=== PATIENT | female | born 1960 | race Caucasian/White ===

== ENCOUNTER 2024-02-22 18:56 | Inpatient (IN) | payer OTHER, SELFPAY ==
[2024-02-22] VITALS (7 sets, daily range): BP systolic 92–140; BP diastolic 55–78; BMI 29.4; BMI 28.6
--- NOTE | 2024-02-22 13:58 | ED.GENMED ---
History of Present Illness
General
Chief Complaint: Change in Mental Status
Source: patient
Exam Limitations: none
Time Seen by Provider: 02/22/24 13:57
Nursing documentation reviewed up to this point in time: agreed with
History of Present Illness
History of Present Illness:
63-year-old female with past medical history of stroke with residual left-sided paralysis, CHF, hypertension, distant history of alcohol abuse presenting emergency department today with concerns of generalized weakness and fatigue for the past few
days that got a lot worse last night. Staff from her senior living reports that she appeared a lot more lethargic starting last night and would often be seen sleeping and not herself. Patient herself also reports that she has had some tremors on
her right side. She does have it apparently tremors at baseline however they seem to be more localized to the right. She is not currently have them at this time. Nursing staff did report some tremors this morning. She also complains of upper
abdominal pain, patient does she states she has a history of chronic pancreatitis however feels as though the pain is of it worse as of recent. She has no chest pain no shortness of breath today. Denies any headache, denies any neck pain. Patient
is wheelchair-bound at baseline.
Past History
Past History
ED Past Medical History: CAD, Cancer (Breast with lumpectomy), GERD, HTN, Hypercholesterolemia, Psychiatric (Depression, panic disorder, alcohol abuse) and Other (ETOH pancreatitis w/ cyst at tail, headache, dizziness, chronic abdominal
pain/narcotic dependent, Colitis, Ulcers)
ED Past Surgical History: Cholecystectomy, (X 2), Gynecological (Hysterectomy) and Other ( left breast lumpectomy, pancreatic duct stents that have been removed)
Social History
Tobacco: Smoker
Alcohol: Chronic alcoholic (Stopped 1 week ago)
Drug: Marijuana (by [facility] on previous visits)
Personal:
Living: with family (with her mother)
Employment: Not employed
Family History
Family History: Other (reviewed and non-contributory)
Review of Systems
Review of Systems
All Other Systems: ROS reviewed and negative except as documented in HPI and ROS
Phy Exam
Physical Exam
Physical Exam:
General: Patient appears lethargic but is generally well-appearing and in no acute distress, nontoxic
Skin: Warm and dry, no rashes or lesions
Head: Normocephalic, atraumatic
Eyes: Sclera non-icteric. EOMs intact. PERRLA.
Cardiac: Regular rate and rhythm, no murmur
Peripheral Vascular: No lower extremity swelling or
Pulm: Normal respiratory effort, no wheezes, rales, rhonchi
Abdomen: Mild epigastric abdominal tenderness palpation
Neuro: CN II-XII intact, left sided paralysis noted from prior stroke, no tremor on the right noted
Psychiatric: Appropriate mood and affect.
Course
Orders/Labs/Results
Orders:
Orders
02/22/24 14:00
Electrocardiogram (*1) Urgent
Reason for Study: Chest Pain
Cardiac Monitoring- Treatment ONCE
IV Insert/Care/Rem.- Treatment PRN
Comprehensive Metabolic Panel Urgent
Lipase Urgent
Phosphorus Urgent
Comment: ADD ON
TSH Reflex To Free T4 Urgent
Comment: ADD ON
02/22/24 14:01
EKG- Treatment ONCE
02/22/24 14:33
CT Head W/o Iv Contrast Urgent
Comment:
Reason For Exam: alterned mental status, right sided tremor
02/22/24 Dinner
NPO
Reason for opting out of Aircraft Instrument Engineer order writing: Provider Decision
Allow oral meds: No
Allow clear liquids: No
NPO with Ice Chips: No
Comment: has dyspghagia at baseline
02/22/24 15:11
Complete Blood Count/With Diff Urgent
02/22/24 15:36
0.9% Sodium Chloride 500 ml [Nss] 500 ml IV BOLUS
02/22/24 17:00
Speech Screening from [facility] Routine
02/22/24 17:56
COVID-19 Antigen Urgent
Source: Nasal Swab
02/22/24 18:05
UA Reflex to Culture [Urinalysis Reflex To Culture] Routine
Urine Creatinine Routine
Urine Sodium Routine
02/22/24 18:15
CR Chest - 2 Views Urgent
Comment:
Reason For Exam: lethargy
02/22/24 18:20
Admit/Transfer Patient As Directed
Co-Sign Provider:
Level of Care: Inpatient admission
Assign to:: Telemetry
Physician / Group: Ladonna Mendieta
Diagnosis: acute kidney injury, altered mental status
Reason for Telemetry: Chest Pain syndromes
Date to Stop Telemetry: 02/24/24
Time to Stop Telemetry: 11:00
Reason for Hospitalization: acute kidney injury, altered mental status
Expected length of stay greater than two midnights?: Yes
ELOS- Estimated Length of Stay in days: 3
I certify the patient meets the requirements for IP care: Yes
PRN Pain Medication Management As Directed
May give lesser potent ordered pain med per pt: Yes
preference::
Protocol:: Medication orders for pain may be administered in a
manner that supports deferring to patient preference
when the pt is:
- Requesting an ordered lesser potent pain medication.
Least to most potent pain medications are defined
as: acetaminophen < NSAID < tramadol < opioids
(morphine, oxycodone, hydromorphone).
- Requesting a lesser dose of the same medication IF
ORDERED.
- Requesting a less intrusive route of administration
if both routes are prescribed by the provider (PO <
IV).
02/22/24 18:25
Code Status As Directed
Resuscitation Status: Full Code
02/22/24 18:26
Add On- LAB Urgent
Tests Added?: TSH with reflex to T4, phosphorous
02/22/24 18:29
OT Consult [Ot Eval And Treat] Routine
Physical Therapy Consult [Pt Eval And Treat] Routine
Activity Level: As Tolerated
Speech Therapy Eval & Treat Routine
02/22/24 18:41
Urine Drug Abuse Screen Routine
02/22/24 18:59
Lactate Level [Lactic Acid] Urgent
Venous Blood Gas Urgent
%Oxygen/Room Air: 95
02/24/24 11:00
DC Protocol for Telemetry ONCE
Abnormal Lab Results
02/22/24 02/22/24
14:00 15:11
RBC 4.05 L 10^6/uL
(4.20-5.40)
MCH 31.6 H pg
(27.0-31.0)
RDW 14.6 H %
(11.5-14.5)
MPV 11.6 H fL
(7.4-10.4)
Absolute Monos (auto) 0.8 H 10^3/uL
(0.1-0.6)
Monocytes % 11.9 H %
(1.7-9.3)
Chloride 110 H mmol/L
(98-107)
Carbon Dioxide 17 L mmol/L
(22-30)
BUN 38 H mg/dl
(7-17)
Creatinine 1.3 H mg/dL
(0.6-1.0)
Glucose 112 H mg/dl
(70-99)
Lipase 18 L U/L
(23-300)
02/22/24 15:11
02/22/24 14:00
Vital Signs
Initial and Last Documented VS:
Initial Vital Signs
Temp Pulse Resp BP Pulse Ox
98.4 F 73 16 104/62 93
02/22/24 14:06 02/22/24 14:06 02/22/24 14:06 02/22/24 14:06 02/22/24 14:06
Last Documented Vital Signs
Temp Pulse Resp BP Pulse Ox
98.4 F 64 22 119/78 98
02/22/24 14:06 02/22/24 18:15 02/22/24 18:15 02/22/24 18:00 02/22/24 18:15
MDM/Problems Addressed
Differential Diagnosis Includes:
Differentials include hyponatremia, COVID-19, dehydration, electrolyte derangement, CVA, chronic pancreatitis flare
MDM/Problems Addressed:
63-year-old female with past medical history of stroke with residual left-sided paralysis, CHF, hypertension, distant history of alcohol abuse presenting emergency department today with concerns of generalized weakness and fatigue for the past few
days that got a lot worse last night. Family and nursing staff concerned about her increasing lethargy as well as worsening of her right sided tremor. Patient also notes vague abdominal pain with no tenderness on exam, does have history of chronic
pancreatitis. Patient is afebrile, her vitals are stable, she has no leukocytosis, CMP does demonstrate acute kidney injury. Family reports that she drinks nothing but coffee suspect dehydration. Will initiate IV fluids. Considering patient's
altered mental status , will admit for continued IV fluids and further workup.
Chronic conditions affecting care:
COPD, migraines, GERD, chronic pancreatitis,
Acute Exacerbation and/or Progression of Chronic Illness:
n/a
*Pulse Oximetry
Patient hypoxic: no
*Critical Care Note
Total Time (30-74mins, 75-104mins- exclusive of procedures): Not Applicable
Data Reviewed
Review of Other/Old Records Reveals: Records (Reviewed ER physician documentation from 05/26/2022 where she was evaluated emergency department for weakness and she was discharge)
Source: patient and records
Prescriptions/Medications Considered But Not Given:
n/a
ED Attending Note
-
Portions of this chart may have been created with voice recognition software.� Occasional wrong word or��sound alike� substitutions may have occurred due to the inherent limitations of voice recognition software.
Discharge Plan
Departure
Patient Disposition: Admit
Date of Disposition: 02/22/24
Time of Disposition: 17:38
Admit to: Med/Surg
Presentation/result/management discussed w/ accepting MD/DO: Hospitalist
Patient with high blood pressure during this ER visit?: No
Condition: Fair
Discharge Problem:
Acute kidney injury
Interventions
Interventions:
*Risk Screen - Suicide Last Done: 02/22/24 14:06
*General Assessment Last Done: 02/22/24 14:31
*Neglect/Abuse Screening Last Done: 02/22/24 14:06
ED- Fall Risk Assessment Last Done: 02/22/24 14:18
*ED COVID-19 Vaccine History Last Done: 02/22/24 14:18
ED- Pulmonary Assessment Last Done: 02/22/24 14:33
ED-Psychological Assessment Last Done: 02/22/24 17:01
ED- Neurological Assessment Last Done: 02/22/24 14:26
ED- Cardiac Assessment Last Done: 02/22/24 14:33
ED Swallowing Screen Last Done: 02/22/24 16:59
--- NOTE | 2024-02-22 14:26 | EDRN ---
IV VAT RN paged for IV access and bloods at this time. Unable to get access. Attempted once w/out success.
[2024-02-22 15:24] LABS: % Basophils 0.6 % (0-2); % Eosinophils 1.3 % (0-6); % Immature Granulocytes 0.4 % (0-0.5); % Lymphocytes 22.2 % (20.5-51.1); % Monocytes 11.9 % (1.7-9.3); % Neutrophils 63.6 % (42.2-75.2); Absolute Eosinophils 0.1 10^3/uL (0-0.7); Absolute Lymphocytes 1.5 10^3/uL (1.2-3.4); Absolute Monocytes 0.8 10^3/uL (0.1-0.6); Absolute Neutrophils 4.4 10^3/uL (1.4-6.5); Hematocrit 37.8 % (37.0-47.0); Hemoglobin 12.8 g/dL (12.0-16.0); Mean Corp Hgb Conc. 33.9 g/dL (33.0-37.0); Mean Corpuscular Hgb 31.6 pg (27.0-31.0); Mean Corpuscular Volume 93.3 fL (81.0-99.0); Mean Platelet Volume 11.6 fL (7.4-10.4); Nucleated Red Blood Cells % 0 %; Platelet Count 180 10^3/uL (130-400); Red Blood Cell Count 4.05 10^6/uL (4.20-5.40); Red Cell Dist. Width 14.6 % (11.5-14.5); White Blood Cell Count 6.9 10^3/uL (4.8-10.8)
[2024-02-22 15:31] LABS: ALT (SGPT) 17 U/L (0-35); AST (SGOT) 22 U/L (14-36); Albumin 4.3 g/dl (3.5-5.0); Alkaline Phosphatase 96 U/L (38-126); Blood Urea Nitrogen 38 mg/dl (7-17); Calcium 9.1 mg/dl (8.4-10.2); Carbon Dioxide 17 mmol/L (22-30); Chloride 110 mmol/L (98-107); Estimated Creatinine Clearance 42 ml/min; Glucose 112 mg/dl (70-99); Potassium 4.2 mmol/L (3.5-5.1); Sodium 141 mmol/L (135-145); Total Bilirubin 0.5 mg/dl (0.2-1.3); Total Protein 6.8 g/dl (6.3-8.2); eGFR 46.78
[2024-02-22] MEDS: NSS 500 IV (15:57)
--- NOTE | 2024-02-22 16:00 | EDRN ---
PCT attempted to take pt to CT during midline placement. At 16:00 news clerk informed pt can go when CT is ready for her now.
[2024-02-22 16:17] LABS: Lipase 18 U/L (23-300)
--- NOTE | 2024-02-22 17:58 | EDRN ---
COVID test performed and sent to lab at this time.
--- NOTE | 2024-02-22 18:00 | HPS.HSE ---
Addendum entered and electronically signed by Ladonna Mendieta MD 02/22/24 19:44:
CXR with pneumonia - will start Cef/Doxy
Addendum entered and electronically signed by Ladonna Mendieta MD 02/22/24 19:07:
HEAD CT
IMPRESSION:
1). 3 mm probably old lacunar infarct in the head of the caudate on the right
2). Old 7 cm right temporal parietal infarct
3). Moderate diffuse cortical atrophy
Original Note:
Family Physician
-
Family Physician: Rin Wen,
Chief Complaint
-
fatigue
History of Present Illness
Ms. Vanessa Borden is a 63 yo woman with hx CVA with residual left-sided paralysis, CHF, breast CA s/p lumpectomy, GERD, HTN, HlLD, alcohol abuse, alcoholic pancreatitis, chronic pain and opiate dependence, splenic vein thrombosis on Eliquis,
presents to the ER with increased lethargy and finding of tremors on right side.
Patient is awoken from sleep. She states she's been very lethargic over the past several days. She has also had uncontrollable arm shaking that comes and goes over past several months. She had this when I was int he room with her. No chest pain
or shortness of breath. No fevers/chills. No cough. She states she has been eating and drinking OK. Has chronic abdominal pain and states she needs her oxycodone.
She is wheelchair bound at baseline.
Spoke to mother who reports that she has never seen her this fatigued. Yesterday had significant tremors and shaking. She has had tremors in past but not like this.
Medical History
Past Medical History
Past Medical History: Reports Other
Additional Past Medical History:
Chronic pancreatitis
Left sided breast cancer -treated with lumpectomy, chemo and radiation
Severe alcohol use disorder
Essential hypertension
GERD
Peripheral neuropathy
Prolonged QTC
Chronic splenic vein thrombosis
Past Surgical History: Reports Other
Additional Past Surgical History:
Left breast lumpectomy
Social History
Tobacco: Smoker (1 pack/day)
Alcohol: Daily
Drug: None
Personal: Other (Lives with mother)
Family History
Family History: Not pertinent
Allergies / Home Medications
Allergies reflects when Allergies were last updated in [facility].
Home Medications with original date entered in [facility]
Allergy/Medication List:
Allergies
Allergy/AdvReac Type Severity Reaction Status Date / Time
adhesive Allergy Rash Verified 02/22/24 14:05
diflunisal Allergy Unknown Verified 02/22/24 14:05
silicone Allergy Unknown Verified 02/22/24 14:05
sumatriptan Allergy Unknown Verified 02/22/24 14:05
Home Medications
folic acid 1 mg tablet 1 mg PO DAILY Supplement 12/31/20
famotidine 40 mg tablet 40 mg PO HS Gastrointestinal issue 06/19/21
thiamine HCl (vitamin B1) 100 mg tablet 100 mg PO BID Supplement 06/19/21
dicyclomine 10 mg capsule 10 mg PO DAILYPRN PRN loose stools 08/19/21
primidone 250 mg tablet 250 mg PO HS tremors 11/23/21
cueeaj-prdjhfla-fohszmw 36,000-114,000-180,000 unit capsule,delay rel (Creon) 1 cap PO QPM 03/06/22
icmhic-nsigbmea-nohbrvq 36,000-114,000-180,000 unit capsule,delay rel (Creon) 2 cap PO MEALS Gastrointestinal issue 03/06/22
acetaminophen 325 mg tablet (Tylenol) 650 mg PO Q4HPRN PRN mild pain/temp>100 05/26/22
bisacodyl 10 mg rectal suppository (Dulcolax (bisacodyl)) 10 mg MS DAILYPRN PRN if no bm in 24hrs after MOM 05/26/22
magnesium hydroxide 400 mg/5 mL oral suspension (Milk of Magnesia) 2,400 mg PO DAILYPRN PRN if no bm after 3 days 05/26/22
sennosides 8.6 mg tablet (senna) 17.2 mg PO Q12H 05/26/22
sodium phosphates 19 gram-7 gram/118 mL enema (Fleet Enema) 118 ml MS DAILYPRN PRN if no bm in 24hrs after bisacodyl 05/26/22
albuterol sulfate 2.5 mg/3 mL (0.083 %) solution for nebulization 2.5 mg inhalation R Q8 02/22/24
albuterol sulfate 90 mcg/actuation aerosol inhaler 2 puff inhalation R Q4HPRN PRN sob/wheezing 02/22/24
alendronate 70 mg tablet 70 mg PO FR 02/22/24
amlodipine 10 mg tablet 10 mg PO DAILY 02/22/24
apixaban 5 mg tablet (Eliquis) 5 mg PO BID 02/22/24
atorvastatin 40 mg tablet 40 mg PO HS 02/22/24
baclofen 5 mg tablet 5 mg PO TID 02/22/24
buspirone 10 mg tablet 15 mg PO Q12H 02/22/24
ueidxwzwlh-jsshldexkgcyp-khxadaki 50 mg-300 mg-40 mg capsule (Fioricet) 2 cap PO Q8HPRN PRN headache 02/22/24
calcium carbonate 600 mg PO BID 02/22/24
citalopram 40 mg tablet 40 mg PO DAILY 02/22/24
diphenhydramine HCl 2 % topical gel (Benadryl) 1 applic topical Q6HPRN PRN itching/rash 02/22/24
docusate sodium 100 mg capsule 200 mg PO DAILY 02/22/24
ergocalciferol (vitamin D2) 1,250 mcg (50,000 unit) capsule 1,250 mcg PO MO 02/22/24
estradiol 10 mcg vaginal tablet (Vagifem) 10 mcg vaginal WESA@2200 02/22/24
ferrous sulfate 325 mg (65 mg iron) tablet 325 mg PO DAILY 02/22/24
fluticasone propionate 50 mcg/actuation nasal spray,suspension 2 spray intranasal BID 02/22/24
guaifenesin 100 mg/5 mL oral liquid 200 mg PO Q4HPRN PRN cough 02/22/24
guaifenesin 600 mg tablet, extended release 12 hr (Mucinex) 600 mg PO Q12H 02/22/24
hydrocortisone 1 % topical cream 1 applic topical Q6HPRN PRN itching 02/22/24
lidocaine 5 % topical ointment 1 applic topical TID left hip pain 02/22/24
loratadine 10 mg tablet 10 mg PO DAILY 02/22/24
losartan 50 mg tablet 50 mg PO DAILY 02/22/24
menthol 5 % topical patch (Icy Hot (menthol)) 1 patch topical DAILY left deltoid 02/22/24
menthol 5 % topical patch (Icy Hot (menthol)) 1 patch topical DAILY left knee 02/22/24
menthol 5 % topical patch (Icy Hot (menthol)) 1 patch topical DAILY left thigh 02/22/24
ondansetron HCl 4 mg tablet 4 mg PO Q8HPRN PRN nausea/vomiting 02/22/24
oxycodone 10 mg tablet 10 mg PO Q6H 02/22/24
pantoprazole 40 mg tablet,delayed release 40 mg PO DAILY 02/22/24
polyethylene glycol 3350 17 gram oral powder packet 17 g PO BID 02/22/24
pregabalin 150 mg capsule 150 mg PO Q8H 02/22/24
ropinirole 0.5 mg tablet 0.5 mg PO QID 02/22/24
sodium chloride 1,000 mg soluble tablet 1,000 mg PO DAILY 02/22/24
tamsulosin 0.4 mg capsule 0.4 mg PO DAILY 02/22/24
tiotropium bromide 2.5 mcg/actuation mist for inhalation 2 puff inhalation R DAILY 02/22/24
topiramate 25 mg tablet (Topamax) 25 mg PO DAILY 02/22/24
trazodone 50 mg tablet 75 mg PO HS 02/22/24
Review of Systems
-
History Source: Patient
A 12 point ROS was completed and negative except as noted: Yes
Physical Exam
Vital Signs
Vital Signs
Temp Pulse Resp BP Pulse Ox
98.4 F 62 14 102/70 97
02/22/24 14:06 02/22/24 17:30 02/22/24 17:30 02/22/24 17:00 02/22/24 17:30
Physical Exam
General: Other (patient arousable and answers questions but quickly drifts back to sleep )
HEENT: PERRLA
Respiratory: Clear; No Wheezes
Cardiac: S1/S2 and Regular Rhythm
GI: Soft and Non Tender
Musculoskeletal: No Edema
Skin: Warm and Dry; No Rash
Neuro: Awake, Alert and Other (chronic left sided paralysis )
Psych: Calm
Laboratory Results
-
02/22/24 15:11
02/22/24 14:00
Laboratory Results
Total Bilirubin 0.5 mg/dl (0.2-1.3) 02/22/24 14:00
AST 22 U/L (14-36) 02/22/24 14:00
ALT 17 U/L (0-35) 02/22/24 14:00
Alkaline Phosphatase 96 U/L (38-126) 02/22/24 14:00
Lipase 18 U/L (23-300) L 02/22/24 14:00
Data Reviewed
-
Diagnostic Radiology: Report Reviewed by me
Lab Data: Labs Reviewed by me
Impression/Plan
-
Ms. Vanessa Borden is a 63 yo woman with hx CVA with residual left-sided paralysis, CHF, breast CA s/p lumpectomy, GERD, HTN, HlLD, alcohol abuse, alcoholic pancreatitis, chronic pain and opiate dependence presents to the ER with increased lethargy
and finding of tremors on right side.
Triage VS: T 98.4, P 73, RR 16, BP 104/62, SpO2 93%
LABS: WBC 6.9, Hg 12.8, PLT 180, Na 141, K+ 4.2, Cl 110, CO2 17, BUN 38, Cr 1.3, Glucose 112, liver enzymes WNL
MAR: NS 500cc x 1
Acute Kidney Injury
Lethargy, Altered Mental Status
-will order more work up to rule out infectious causes of AMS, likely also from polypharmacy
-covid testing, UA, CXR
-VBG
-admit to telemetry
-IVF with sodium bicarb
-F/U urine studies
-urine drug screen
-cut down on medications and hold for sedation:
decrease oxy 10 q 6 hours to oxy 7.5 q 8 hours. Mother was surprised to learn that dosing was 10mg
decrease Baclofen from 5mg PO TID to 5mg PO BID
stop Trazodone
hold HE[employer] RAIL TRAIN OPERATOR Citalopram, Buspirone, Pregabalin
-PT/OT/ST
-given somnolence, NPO except medications
Hx CVA with residual left-sided paralysis
-wheelchair bound
Breast CA s/p Lumpectomy
GERD - HE[employer] RAIL TRAIN OPERATOR Protonix
Essential HTN - HE[employer] RAIL TRAIN OPERATOR Amlodipine
Hyperlipidemia - HE[employer]Y RAIL TRAIN OPERATOR Statin
Chronic pain with opiate dependence
Chronic Pancreatitis
-decrease oxycodone as above
-HEAVY RAIL TRAIN OPERATOR Creon
Anxiety
-hold HEAVY RAIL TRAIN OPERATOR medications as above
Hx Alcohol Abuse
Splenic Vein Thrombosis - continue HE[employer] RAIL TRAIN OPERATOR Eliquis
DVT PPx Eliquis
FULL CODE - discussed with patient and her mother
76 minutes spent on patient evaluation
[2024-02-22 18:34] LABS: COVID-19 Antigen Negative (Negative)
[2024-02-22 19:01] LABS: Phosphorus 4.5 mg/dl (2.5-4.5)
[2024-02-22 19:10] LABS: Venous Blood Gas B.E. -3.8 mmol/L (-4 to +4); Venous Blood Gas HCO3 22.2 mmol/L (22-27); Venous Blood Gas O2 Sat % 82.3 %; Venous Blood Gas pCO2 43 mmHg (35-48); Venous Blood Gas pH 7.32 (7.32-7.43); Venous Blood Gas pO2 48 mmHg (30-50)
[2024-02-22 19:21] LABS: Lactic Acid 0.6 mmol/L (0.7-2.0)
[2024-02-22 19:32] LABS: TSH Reflex To Free T4 0.83 uIU/ml (0.47-4.68)
[2024-02-22] MEDS: MIRALAX PO (20:53)
[2024-02-22] MEDS: STERILE WATER FOR INJECTION 10 ML IV (21:04)
[2024-02-22] MEDS: ROCEPHIN 1000 MG IV (21:04)
[2024-02-22] MEDS: VIBRAMYCIN 260 MG IV (21:04)
[2024-02-22] MEDS: LIORESAL 5 MG PO (21:04)
[2024-02-22] MEDS: ELIQUIS 5 MG PO (21:05)
[2024-02-22] MEDS: MYSOLINE 250 MG PO (21:05)
[2024-02-22] MEDS: MUCINEX 600 MG PO (21:05)
[2024-02-22] MEDS: SENOKOT PO (21:05)
[2024-02-22] MEDS: VITAMIN B1 100 MG PO (21:05)
[2024-02-22] MEDS: PEPCID 20 MG PO (21:07)
[2024-02-22] MEDS: LIPITOR 40 MG PO (21:07)
[2024-02-22] MEDS: REQUIP 0.5 MG PO (21:07)
[2024-02-22] MEDS: ROXICODONE 7.5 MG PO (21:39)
[2024-02-22] MEDS: SODIUM BICARBONATE 1150 MEQ IV (22:30)
--- NOTE | 2024-02-22 22:35 | PTCARENOTE ---
Pt admitted to [facility]. AAOx2 anxious, drowsy at times, forgetful and confused. Let side hemiplegia. NSR w/ prolong QT in the monitor. Lung sounds are diminished, shallow breathing, SaO2 93% RA. Abd round, obese and incontinence at times with bowel and
bladder. Call dooley within reach.
[2024-02-23] VITALS (8 sets, daily range): BP systolic 112–146; BP diastolic 78–97; PULSE 76; O2SAT 99; BMI 28.4
[2024-02-23] MEDS: VENTOLIN NEBULES INH (00:21)
[2024-02-23] MEDS: TYLENOL 650 MG PO (03:25)
[2024-02-23] MEDS: DUONEB 3 ML INH (04:07)
[2024-02-23] MEDS: ROXICODONE 7.5 MG PO (05:57)
[2024-02-23 06:54] LABS: % Basophils 0.7 % (0-2); % Eosinophils 1.3 % (0-6); % Immature Granulocytes 0.4 % (0-0.5); % Lymphocytes 27.9 % (20.5-51.1); % Monocytes 12.4 % (1.7-9.3); % Neutrophils 57.3 % (42.2-75.2); Absolute Eosinophils 0.1 10^3/uL (0-0.7); Absolute Lymphocytes 1.6 10^3/uL (1.2-3.4); Absolute Monocytes 0.7 10^3/uL (0.1-0.6); Absolute Neutrophils 3.2 10^3/uL (1.4-6.5); Blood Urea Nitrogen 29 mg/dl (7-17); Calcium 8.6 mg/dl (8.4-10.2); Carbon Dioxide 22 mmol/L (22-30); Chloride 109 mmol/L (98-107); Estimated Creatinine Clearance 60 ml/min; Glucose 82 mg/dl (70-99); Hematocrit 36.3 % (37.0-47.0); Hemoglobin 12.2 g/dL (12.0-16.0); Magnesium 2.2 mg/dl (1.6-2.3); Mean Corp Hgb Conc. 33.6 g/dL (33.0-37.0); Mean Corpuscular Hgb 30.5 pg (27.0-31.0); Mean Corpuscular Volume 90.8 fL (81.0-99.0); Mean Platelet Volume 11.8 fL (7.4-10.4); Nucleated Red Blood Cells % 0 %; Platelet Count 188 10^3/uL (130-400); Potassium 4.3 mmol/L (3.5-5.1); Red Cell Dist. Width 14.5 % (11.5-14.5); Sodium 142 mmol/L (135-145); White Blood Cell Count 5.6 10^3/uL (4.8-10.8); eGFR > 60.00
[2024-02-23] MEDS: VENTOLIN NEBULES 2.5 MG INH ×2 (07:29→16:05)
[2024-02-23] MEDS: SPIRIVA RESPIMAT 2.5 MCG 2 PUFF INH (07:29)
--- NOTE | 2024-02-23 08:30 | PTOTSP ---
Speech Language Pathology
Pt seen for clinical bedside swallow evaluation. 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 She reported she had a 'community acquired' PNA in the past year. P.O. trials of regular solids and thin liquids
provided. She refused puree. Adequate mastication, bolus formation, and A-P transit noted with no oral residue. No overt signs of aspiration. Unable to rule out silent aspiration bedside. Pt is at risk for aspiration given hx of CVA, current RLL
PNA, and reported second PNA within the last year.
Recommend:
(1) VSE
(2) NPO except meds pending VSE
(3) Oral care 4x/day with suctioning as needed
(4) Will decide on need for Aspiration Risk Hydration Protocol (ARHP) pending VSE
(5) COUNTY ASSESSOR to continue to follow
[2024-02-23] MEDS: SODIUM BICARBONATE 1150 MEQ IV (09:31)
[2024-02-23] MEDS: REQUIP 0.5 MG PO ×4 (09:32→21:25)
[2024-02-23] MEDS: CLARITIN 10 MG PO (09:32)
[2024-02-23] MEDS: ELIQUIS 5 MG PO ×2 (09:33→20:19)
[2024-02-23] MEDS: VITAMIN B1 100 MG PO ×2 (09:33→20:18)
[2024-02-23] MEDS: LIORESAL 5 MG PO ×2 (09:33→20:18)
[2024-02-23] MEDS: SENOKOT 17.2 MG PO ×2 (09:33→20:19)
[2024-02-23] MEDS: SODIUM CHLORIDE 1 GRAM PO (09:33)
[2024-02-23] MEDS: FLOMAX 0.4 MG PO (09:35)
[2024-02-23] MEDS: PROTONIX 40 MG PO (09:35)
[2024-02-23] MEDS: MUCINEX 600 MG PO ×2 (09:35→20:19)
[2024-02-23] MEDS: TOPAMAX 25 MG PO (09:36)
[2024-02-23] MEDS: FOLVITE 1 MG PO (09:36)
[2024-02-23] MEDS: NORVASC 10 MG PO (09:36)
[2024-02-23] MEDS: LIDOCAINE 4% PATCH 3 PATCH TOPICAL (09:37)
[2024-02-23] MEDS: VIBRAMYCIN 260 MG IV ×2 (09:38→21:00)
--- NOTE | 2024-02-23 10:25 | W.PN.HOSP.TC ---
Today's Communication/Plan
-
IV fluids
Adjusting analgesic and psychiatric regimen
VSE.
Antibiotics for pneumonia
Assessment / Plan
Assessment / Plan
Impression:
Toxic metabolic encephalopathy secondary to polypharmacy.
Right lower lobe pneumonia, with concern for aspiration.
Acute kidney injury.
Metabolic acidosis.
Other conditions:
History of CVA with residual left-sided paralysis.
Seizure disorder as per history
Chronic pain thought to be due to chronic pancreatitis.
Opiate dependency.
Chronic pancreatitis with history of pancreatic and common bile duct stenting/ERCP.
Chronic pancreatic insufficiency.
History of splenic vein thrombosis on anticoagulation with Eliquis.
Status postcholecystectomy.
History of breast carcinoma with lumpectomy
CAD.
Essential hypertension.
History of alcohol use disorder
History of tobacco use disorder.
Anxiety/depression.
Plan:
Presentation with lethargy and reported tremors on the right side.
History of CVA with residual left paresis left facial droop.
CT scan in the ED: 3 mm probable old lacunar infarct in the head of the caudate on the right, old 7 cm right temporal parietal infarct. Moderate diffuse cortical atrophy.
Suspect toxic metabolic encephalopathy in the settings of polypharmacy as well as decreasing renal clearance with NAVDEEP.
Mental status improved and back to baseline with IV hydration and adjusting analgesic/sedative regimen.
Monitor further adjusting analgesic regimen as follow:
� Oxycodone dose reduced to 5 mg every 8 hours standing dose (10 mg every 6 prior to admission)
� Stop trazodone
� Hold FINANCIAL HEALTH COUNSELOR citalopram, buspirone, pregabalin.
Acute kidney injury.
Metabolic acidosis.
Initiated on IV fluids with bicarbonate
Creatinine improving 1.3�0.9
Acidosis improved.
Transition to isotonic solution
Follow BMP
Monitor for retention
Check urinalysis and reflex to culture
Right lower lobe pneumonia
Stable respiratory status.
Afebrile.
Aspiration risk given prior CVA with significant neurologic sequela.
Speech and swallow evaluation
VSE.
Keep n.p.o. for now
Initiated on antibiotics: Ceftriaxone/doxycycline
Essential hypertension
Dyslipidemia
Continue amlodipine and statin.
Chronic pancreatitis with pancreatic insufficiency.
Analgesic regimen as above.
Continue pancreatic enzymes.
Splenic vein thrombosis on Eliquis.
Ambulatory dysfunction multifactorial. Send wheelchair-bound.
Nursing facility resident.
Anxiety/depression
Adjusting analgesic and psychiatric regimen with above-mentioned concern for polypharmacy.
Full code
DVT prophylaxis Eliquis.
Anticipated Discharge: 24 - 48 hours
Subjective/Interval History
-
Date of Service: February 23, 2024
Objective Data
-
Labs:
Laboratory Results
02/23/24
05:50
WBC 5.6
Hgb 12.2
Hct 36.3 L
Plt Count 188
Sodium 142
Potassium 4.3
Chloride 109 H
Carbon Dioxide 22
BUN 29 H
Creatinine 0.9
Glucose 82
Calcium 8.6
Vital Signs:
Vital Signs
Temp Pulse Resp BP Pulse Ox
97.4 F 73 18 125/78 99
02/23/24 07:35 02/23/24 07:35 02/23/24 07:35 02/23/24 07:35 02/23/24 07:35
I&O
02/22/24 02/23/24 02/24/24
06:59 06:59 06:59
Intake Total 990 / 990
Balance 990 / 990
Physical Exam
-
General: Well Developed and No Apparent Distress
HEENT: Normocephalic, Atraumatic and Moist Mucous Membranes
Respiratory: Clear to Auscultation
Cardiac: Regular Rhythm and S1/S2; Negative Murmur, Rub or Gallop
GI: Soft, Nontender, Nondistended and Normal Bowel Sounds; Negative Organomegaly
Rectal: Deferred by Provider
Musculoskeletal: No Clubbing, No Cyanosis and No Edema
Skin: Negative Rash
Neuro: Awake, Alert, Oriented and Other (Left hemiparesis)
[2024-02-23] MEDS: MIRALAX PO ×2 (11:03→20:19)
[2024-02-23 11:39] LABS: Urine Albumin Negative (Neg - Trace); Urine Bilirubin Negative (Negative); Urine Character Clear (Clear); Urine Color Yellow; Urine Glucose Negative (Negative); Urine Ketone Negative (Negative); Urine Leukocyte 2+ (Negative); Urine Nitrite Positive (Negative); Urine Occult Blood Negative (Negative); Urine Urobilinogen Negative (Neg - 1+)
[2024-02-23 12:05] LABS: Urine Sodium 101 mmol/L (30-90)
[2024-02-23 12:11] LABS: Urine Bacteria Few (Negative); Urine Red Blood Cell None Seen /HPF (0-2); Urine White Cell 16-20 /HPF (0-5)
[2024-02-23] MEDS: NSS 1000 IV (12:31)
--- NOTE | 2024-02-23 13:09 | PTOTSP ---
Video Swallow Study
Summary: Patient with WFL-mild oral stage differences but overall functional oral stage. Pharyngeal stage WFL. No aspiration occurred. Esophageal sweep with mild distal retention that reduced with a liquid wash.
Recommendations:
1. Regular, Thin Liquids
2. Medications as best tolerated
3. Strategies: upright to 90 degrees, pick soft/moist easy to chew foods, chew well, remain upright for 30 minutes after PO intake
4. Oral care 3x daily
No further dysphagia therapy warranted at this time.
[2024-02-23] MEDS: FIORICET 2 TAB PO ×2 (13:36→21:38)
[2024-02-23] MEDS: NICODERM TRANSDERMAL 14 MG TRANSDERM (13:37)
[2024-02-23] MEDS: ROXICODONE 5 MG PO ×2 (14:21→22:09)
[2024-02-23 14:56] LABS: Amphetamines Negative (Negative); Barbiturates Positive (Negative); Benzodiazepines Negative (Negative); Buprenorphine Negative (Negative); Cocaine Negative (Negative); Marijuana Negative (Negative); Methadone Negative (Negative); Methamphetamines Negative (Negative); Opiates Negative (Negative); Phencyclidine Negative (Negative); Tricyclic Antidepressants Negative (Negative)
[2024-02-23 15:12] LABS: Fentanyl, Urine Negative (Negative)
[2024-02-23] MEDS: ZOFRAN 4 MG IV (20:18)
[2024-02-23] MEDS: ROCEPHIN 1000 MG IV (20:19)
[2024-02-23] MEDS: STERILE WATER FOR INJECTION 10 ML IV (20:20)
[2024-02-23] MEDS: LIPITOR 40 MG PO (21:25)
[2024-02-23] MEDS: MYSOLINE 250 MG PO (21:25)
[2024-02-23] MEDS: PEPCID 20 MG PO (21:25)
[2024-02-23] MEDS: COMPAZINE 5 MG IV (22:35)
[2024-02-24] MEDS: NSS 1000 IV (00:03)
[2024-02-24] MEDS: VENTOLIN NEBULES 2.5 MG INH ×4 (00:13→15:35)
[2024-02-24] MEDS: TYLENOL 650 MG PO (03:01)
[2024-02-24 03:20] VITALS: BP 134/88
[2024-02-24 05:15] VITALS: BMI 28.6
[2024-02-24] MEDS: ROXICODONE 5 MG PO ×2 (05:59→13:35)
[2024-02-24] MEDS: FIORICET 2 TAB PO ×2 (05:59→14:33)
[2024-02-24 06:26] LABS: % Basophils 0.7 % (0-2); % Eosinophils 0.3 % (0-6); % Immature Granulocytes 1.7 % (0-0.5); % Lymphocytes 19.4 % (20.5-51.1); % Monocytes 8.8 % (1.7-9.3); % Neutrophils 69.1 % (42.2-75.2); Absolute Immature Granulocytes 0.1 10^3/uL (0-0.05); Absolute Lymphocytes 1.2 10^3/uL (1.2-3.4); Absolute Monocytes 0.5 10^3/uL (0.1-0.6); Absolute Neutrophils 4.2 10^3/uL (1.4-6.5); Hematocrit 34.5 % (37.0-47.0); Hemoglobin 11.8 g/dL (12.0-16.0); Mean Corp Hgb Conc. 34.2 g/dL (33.0-37.0); Mean Corpuscular Hgb 30.8 pg (27.0-31.0); Mean Corpuscular Volume 90.1 fL (81.0-99.0); Mean Platelet Volume 11.9 fL (7.4-10.4); Nucleated Red Blood Cells % 0 %; Platelet Count 177 10^3/uL (130-400); Red Blood Cell Count 3.83 10^6/uL (4.20-5.40); Red Cell Dist. Width 14.2 % (11.5-14.5)
--- NOTE | 2024-02-24 06:37 | VATNOTE ---
NOTED 4FR R MIDLINE DRSG SATURATED WITH BLOOD WHEN OBTAINING ORDERED LABS. SITE REDRESSED PER PROTOCOL WITH QUICK CLOT. NO OBVIOUS BLEEDING NOTED. SITE APPEARS WNL AND PT OFFERS N/C OF PAIN OR DISCOMFORT.PCN AWARE OF INTERVENTION AND OUTCOME.. VAT
TO FOLLOW.
[2024-02-24 06:47] LABS: Blood Urea Nitrogen 21 mg/dl (7-17); Calcium 8.4 mg/dl (8.4-10.2); Carbon Dioxide 15 mmol/L (22-30); Chloride 113 mmol/L (98-107); Estimated Creatinine Clearance 78 ml/min; Glucose 125 mg/dl (70-99); Potassium 3.9 mmol/L (3.5-5.1); Sodium 143 mmol/L (135-145); eGFR > 60.00
[2024-02-24 07:05] VITALS: BP 134/84
[2024-02-24] MEDS: SPIRIVA RESPIMAT 2.5 MCG 2 PUFF INH (07:23)
[2024-02-24] MEDS: NICODERM TRANSDERMAL 14 MG TRANSDERM (10:04)
[2024-02-24] MEDS: LIDOCAINE 4% PATCH 3 PATCH TOPICAL (10:04)
[2024-02-24] MEDS: PROTONIX 40 MG PO (10:05)
[2024-02-24] MEDS: CLARITIN 10 MG PO (10:05)
[2024-02-24] MEDS: ELIQUIS 5 MG PO (10:06)
[2024-02-24] MEDS: MUCINEX 600 MG PO (10:06)
[2024-02-24] MEDS: FLOMAX 0.4 MG PO (10:06)
[2024-02-24] MEDS: LIORESAL 5 MG PO (10:06)
[2024-02-24] MEDS: SENOKOT 17.2 MG PO (10:06)
[2024-02-24] MEDS: SODIUM CHLORIDE 1 GRAM PO (10:06)
[2024-02-24] MEDS: REQUIP 0.5 MG PO ×3 (10:06→17:34)
[2024-02-24] MEDS: NORVASC 10 MG PO (10:06)
[2024-02-24] MEDS: VITAMIN B1 100 MG PO (10:06)
[2024-02-24] MEDS: TOPAMAX 25 MG PO (10:07)
[2024-02-24] MEDS: FOLVITE 1 MG PO (10:07)
[2024-02-24] MEDS: MIRALAX 17 GRAMS PO (10:07)
[2024-02-24] MEDS: VIBRAMYCIN 260 MG IV (10:08)
[2024-02-24 11:00] VITALS: BP 145/94
--- NOTE | 2024-02-24 13:54 | W.DS.TRANS ---
DC Summary - [facility]
-
Discharge Instructions:
Sleep Apnea Risk Intermediate
Discharge Diagnosis/Procedures Impression:
Toxic metabolic encephalopathy secondary to
polypharmacy.
Right lower lobe pneumonia, with concern for
aspiration.
Acute kidney injury.
Metabolic acidosis.
Other conditions:
History of CVA with residual left-sided
paralysis.
Seizure disorder as per history
Chronic pain thought to be due to chronic
pancreatitis.
Opiate dependency.
Chronic pancreatitis with history of pancreatic
and common bile duct stenting/ERCP.
Chronic pancreatic insufficiency.
History of splenic vein thrombosis on
anticoagulation with Eliquis.
Status postcholecystectomy.
History of breast carcinoma with lumpectomy
CAD.
Essential hypertension.
History of alcohol use disorder
History of tobacco use disorder.
Anxiety/depression.
Diet Regular
Instructions:
Stand-Alone Forms:
Changes to Home Medications: Yes
Discharge Medications:
DC Medications w/original date entered in [facility]
folic acid 1 mg tablet 1 mg PO DAILY Supplement 12/31/20
famotidine 40 mg tablet 40 mg PO HS Gastrointestinal issue 06/19/21
thiamine HCl (vitamin B1) 100 mg tablet 100 mg PO BID Supplement 06/19/21
dicyclomine 10 mg capsule 10 mg PO DAILYPRN PRN loose stools 08/19/21
primidone 250 mg tablet 250 mg PO HS tremors 11/23/21
fkefjb-xvygxhiv-szcqyfu 36,000-114,000-180,000 unit capsule,delay rel (Creon) 1 cap PO QPM 03/06/22
pxlqxj-mkbuytny-wxtmtgk 36,000-114,000-180,000 unit capsule,delay rel (Creon) 2 cap PO MEALS Gastrointestinal issue 03/06/22
acetaminophen 325 mg tablet (Tylenol) 650 mg PO Q4HPRN PRN mild pain/temp>100 05/26/22
bisacodyl 10 mg rectal suppository (Dulcolax (bisacodyl)) 10 mg NJ DAILYPRN PRN if no bm in 24hrs after MOM 05/26/22
magnesium hydroxide 400 mg/5 mL oral suspension (Milk of Magnesia) 2,400 mg PO DAILYPRN PRN if no bm after 3 days 05/26/22
sennosides 8.6 mg tablet (senna) 17.2 mg PO Q12H 05/26/22
sodium phosphates 19 gram-7 gram/118 mL enema (Fleet Enema) 118 ml NJ DAILYPRN PRN if no bm in 24hrs after bisacodyl 05/26/22
albuterol sulfate 2.5 mg/3 mL (0.083 %) solution for nebulization 2.5 mg inhalation R Q8 02/22/24
albuterol sulfate 90 mcg/actuation aerosol inhaler 2 puff inhalation R Q4HPRN PRN sob/wheezing 02/22/24
alendronate 70 mg tablet 70 mg PO FR 02/22/24
amlodipine 10 mg tablet 10 mg PO DAILY 02/22/24
apixaban 5 mg tablet (Eliquis) 5 mg PO BID 02/22/24
atorvastatin 40 mg tablet 40 mg PO HS 02/22/24
baclofen 5 mg tablet 5 mg PO TID 02/22/24
calcium carbonate 600 mg PO BID 02/22/24
diphenhydramine HCl 2 % topical gel (Benadryl) 1 applic topical Q6HPRN PRN itching/rash 02/22/24
docusate sodium 100 mg capsule 200 mg PO DAILY 02/22/24
ergocalciferol (vitamin D2) 1,250 mcg (50,000 unit) capsule 1,250 mcg PO MO 02/22/24
estradiol 10 mcg vaginal tablet (Vagifem) 10 mcg vaginal WESA@2200 02/22/24
ferrous sulfate 325 mg (65 mg iron) tablet 325 mg PO DAILY 02/22/24
fluticasone propionate 50 mcg/actuation nasal spray,suspension 2 spray intranasal BID 02/22/24
guaifenesin 100 mg/5 mL oral liquid 200 mg PO Q4HPRN PRN cough 02/22/24
guaifenesin 600 mg tablet, extended release 12 hr (Mucinex) 600 mg PO Q12H 02/22/24
hydrocortisone 1 % topical cream 1 applic topical Q6HPRN PRN itching 02/22/24
lidocaine 5 % topical ointment 1 applic topical TID left hip pain 02/22/24
loratadine 10 mg tablet 10 mg PO DAILY 02/22/24
losartan 50 mg tablet 50 mg PO DAILY 02/22/24
menthol 5 % topical patch (Icy Hot (menthol)) 1 patch topical DAILY left deltoid 02/22/24
menthol 5 % topical patch (Icy Hot (menthol)) 1 patch topical DAILY left knee 02/22/24
menthol 5 % topical patch (Icy Hot (menthol)) 1 patch topical DAILY left thigh 02/22/24
ondansetron HCl 4 mg tablet 4 mg PO Q8HPRN PRN nausea/vomiting 02/22/24
pantoprazole 40 mg tablet,delayed release 40 mg PO DAILY 02/22/24
polyethylene glycol 3350 17 gram oral powder packet 17 g PO BID 02/22/24
ropinirole 0.5 mg tablet 0.5 mg PO QID 02/22/24
sodium chloride 1,000 mg soluble tablet 1,000 mg PO DAILY 02/22/24
tamsulosin 0.4 mg capsule 0.4 mg PO DAILY 02/22/24
tiotropium bromide 2.5 mcg/actuation mist for inhalation 2 puff inhalation R DAILY 02/22/24
topiramate 25 mg tablet (Topamax) 25 mg PO DAILY 02/22/24
amoxicillin 875 mg-potassium clavulanate 125 mg tablet 1 tab PO BID #10 tabs 02/24/24
wdreqvizyq-fxxhbweklcomg-mgaaaokn 50 mg-300 mg-40 mg capsule (Fioricet) 2 cap PO Q8HPRN PRN headache #20 caps 09/20/24
oxycodone 5 mg tablet 5 mg PO Q8H #20 tabs 02/24/24
topiramate 25 mg tablet 25 mg PO DAILY #30 tabs 02/24/24
Home Medication Changes
Buspirone, Citalopram, Pregabalin, Trazodone stopped.
Oxycodone reduced.
Antibiotics for additional 5 days
Pending Results: No
[2024-02-24] MEDS: NSS IV (14:31)
--- NOTE | 2024-02-24 14:50 | CM ---
Vanessa was admitted on 02/22/2024 from [facility]. I spoke with Mra Escalona, [facility] Liaison who advised that Vanessa is a half-way care resident since 2022. She has an AR bed hold that expires on 03/08/2024.
Vanessa requires assist with ADLs, unable to care for herself.
Ambulance transport requested for discharge today back to [facility].
Plan: Discharge to [facility] via ambulance
Report: [phone]
[2024-02-24 15:18] VITALS: BP 169/98
[2024-02-24] MEDS: FLUSH (NSS) 2 FLUSH IV (16:42)
[2024-02-24] MEDS: ZOFRAN 4 MG IV (16:42)
--- NOTE | 2024-02-24 16:56 | CM ---
Updated referral sent to [facility] for pt return to [facility].
--- NOTE | 2024-02-24 18:35 | VATNOTE ---
right midline discontinued per protocol. 16 cm retrieved
== END 2024-02-24 19:53 | DRG 91 ==
LOC: 4 EAST ACU 18:56
PROVIDERS: Physician Assistant; ADMITTING PHYSICIAN Student in an Organized Health Care Education/Training Program; ATTENDING PHYSICIAN Internal Medicine; EMERGENCY PHYSICIAN Emergency Medicine; FAMILY PHYSICIAN Hospitalist
DX: G92.8 Other toxic encephalopathy (principal); J69.0 Pneumonitis due to inhalation of food and vomit; N17.9 Acute kidney failure, unspecified; E87.20 Acidosis, unspecified; I69.354 Hemiplegia and hemiparesis following cerebral infarction affecting left non-dominant side; F11.20 Opioid dependence, uncomplicated; K86.1 Other chronic pancreatitis; I11.0 Hypertensive heart disease with heart failure; I50.9 Heart failure, unspecified; F10.20 Alcohol dependence, uncomplicated; F32.A Depression, unspecified; G40.909 Epilepsy, unspecified, not intractable, without status epilepticus; K86.81 Exocrine pancreatic insufficiency; E78.00 Pure hypercholesterolemia, unspecified; F17.210 Nicotine dependence, cigarettes, uncomplicated; F41.0 Panic disorder [episodic paroxysmal anxiety]; G62.9 Polyneuropathy, unspecified; G89.29 Other chronic pain; K21.9 Gastro-esophageal reflux disease without esophagitis; T50.915A Adverse effect of multiple unspecified drugs, medicaments and biological substances, initial encounter; I25.10 Atherosclerotic heart disease of native coronary artery without angina pectoris; Z79.01 Long term (current) use of anticoagulants; Z79.899 Other long term (current) drug therapy; Z90.49 Acquired absence of other specified parts of digestive tract; Z90.710 Acquired absence of both cervix and uterus; Z99.3 Dependence on wheelchair; Z85.3 Personal history of malignant neoplasm of breast; Z92.21 Personal history of antineoplastic chemotherapy; Z92.3 Personal history of irradiation; Z87.19 Personal history of other diseases of the digestive system; Z86.718 Personal history of other venous thrombosis and embolism; Z88.8 Allergy status to other drugs, medicaments and biological substances
CPT/HCPCS: 70450; 71046; 74230; 80048; 80053; 80306; 80307; 81003; 81015; 82570; 82805; 83605; 83690; 83735; 84100; 84300; 84443; 85025; 87070; 87086; 87811; 92610; 92611; 93005; 94640; 96360; 97163; 97167; 99285; 99406

== ENCOUNTER 2024-02-27 19:43 | Inpatient (IN) | payer OTHER, SELFPAY ==
[2024-02-27] VITALS (12 sets, daily range): BP systolic 139–202; BP diastolic 74–158; BMI 26.7
--- NOTE | 2024-02-27 14:06 | ED.GENMED ---
History of Present Illness
<Nancy Del Valle PA-C - Last Filed: 02/27/24 20:42>
General
Chief Complaint: Weakness
Source: patient
Exam Limitations: none
Time Seen by Provider: 02/27/24 14:05
Nursing documentation reviewed up to this point in time: agreed with
History of Present Illness
History of Present Illness:
This is a 63-year-old female with a past medical history of depression, chronic pancreatitis, CVA with residual left-sided weakness, presents emergency department today with concerns of altered mental status. Sister present in room with patient and
reports that since patient's discharge from the hospital, patient has been exhibiting bizarre behaviors. Sister reports that patient has been exhibiting repetitive behavior such as calling her mom multiple times in a row, smacking her lips, and
getting on and off of her bed. Sister reports that she is never had behavior like this before. Patient reports that her intermediate is 'trying to kill her' and has been giving her drugs that will hurt her. Because of this, patient has been
refusing to take her medications when she is normally compliant with her medications. Of note, patient was recently hospitalized 3 days ago for altered mental status and was ultimately diagnosed with a NAVDEEP and her symptoms were attributed to toxic
encephalopathy secondary to polypharmacy, she was on oxycodone citalopram and buspirone and pregabalin as well as trazodone. Her oxycodone dose was decreased and she was discontinued from her citalopram buspirone and pregabalin as well as the
trazodone. Patient denies headache or any new neurologic symptoms. Patient notes chronic abdominal pain. Patient denies shortness of breath or chest pain. Patient denies any urinary symptoms.
Past History
<Nancy Del Valle PA-C - Last Filed: 02/27/24 20:42>
Past History
ED Past Medical History: CAD, Cancer (Breast with lumpectomy), GERD, HTN, Hypercholesterolemia, Psychiatric (Depression, panic disorder, alcohol abuse) and Other (ETOH pancreatitis w/ cyst at tail, headache, dizziness, chronic abdominal
pain/narcotic dependent, Colitis, Ulcers)
ED Past Surgical History: Cholecystectomy, (X 2), Gynecological (Hysterectomy) and Other ( left breast lumpectomy, pancreatic duct stents that have been removed)
Social History
Tobacco: Smoker
Alcohol: Chronic alcoholic (Stopped 1 week ago)
Drug: Marijuana (by [facility] on previous visits)
Personal:
Living: with family (with her mother)
Employment: Not employed
Family History
Family History: Other (reviewed and non-contributory)
Review of Systems
<Nancy Del Valle PA-C - Last Filed: 02/27/24 20:42>
Review of Systems
All Other Systems: ROS reviewed and negative except as documented in HPI and ROS
Phy Exam
<PATRICIA So Last Filed: 02/27/24 20:42>
Physical Exam
Physical Exam:
General: Patient is well appearing and in no acute distress; non-toxic
Skin: Warm and dry, no rashes or lesions
Head: Normocephalic, atraumatic
Eyes: Sclera non-icteric. EOMs intact. PERRLA.
Cardiac: Regular rate and rhythm, no murmurs
Peripheral Vascular: No lower extremity swelling or edema
Pulm: Normal respiratory effort, no wheezes, rales, or rhonchi
Abdomen: Mild lower abdominal tenderness to palpation
Neuro: CN II-XII intact, chronic left sided weakness. Pill rolling tremor noted to left hand. Repetitive lip smacking noted.
Psychiatric: Patient oriented to person and place but not time. Patient has anxious affect, paranoia. Patient denies auditory or visual hallucinations.
Course
<PATRICIA So Last Filed: 02/27/24 20:42>
Orders/Labs/Results
Orders:
Orders
02/27/24 14:02
ECG [Electrocardiogram (*1)] Urgent
Reason for Study: Fatigue / Weakness
02/27/24 14:03
EKG- Treatment ONCE
02/27/24 14:19
Straight Cath As Directed
Frequency: One time now
02/27/24 14:28
Complete Blood Count/With Diff Urgent
Urine Culture Reflexed from UA [Urinalysis Reflex To Culture] Urgent
Date Specimen was Collected: 02/27/24
Time Specimen was Collected: 14:19
Urine Drug Abuse Screen Urgent
Date Specimen was Collected: 02/27/24
Time Specimen was Collected: 14:19
02/27/24 15:02
Add On- LAB Urgent
Tests Added?: lipase
02/27/24 15:03
CT Head W/o Iv Contrast Urgent
Comment:
Reason For Exam: altered mental status
02/27/24 16:44
Comprehensive Metabolic Panel Urgent
Lipase Urgent
Troponin I Urgent
02/27/24 18:38
Admit/Transfer Patient As Directed
Co-Sign Provider:
Level of Care: Inpatient admission
Assign to:: IMU- Intermediate Care
Physician / Group: Timo
Diagnosis: Seizure,
Reason for Hospitalization: IVFs
Expected length of stay greater than two midnights?: Yes
ELOS- Estimated Length of Stay in days: 3
I certify the patient meets the requirements for IP care: Yes
PRN Pain Medication Management As Directed
May give lesser potent ordered pain med per pt: Yes
preference::
Protocol:: Medication orders for pain may be administered in a
manner that supports deferring to patient preference
when the pt is:
- Requesting an ordered lesser potent pain medication.
Least to most potent pain medications are defined
as: acetaminophen < NSAID < tramadol < opioids
(morphine, oxycodone, hydromorphone).
- Requesting a lesser dose of the same medication IF
ORDERED.
- Requesting a less intrusive route of administration
if both routes are prescribed by the provider (PO <
IV).
02/27/24 18:43
Code Status As Directed
Resuscitation Status: Full Code
02/27/24 18:54
Add On- LAB Urgent
Tests Added?: urine drug screen
02/27/24 19:33
B-Hydroxybutyrate Urgent
Lactic Acid Urgent
Abnormal Lab Results
02/27/24 02/27/24
14:28 16:44
MPV 11.6 H fL
(7.4-10.4)
Absolute Monos (auto) 0.8 H 10^3/uL
(0.1-0.6)
Lymphocytes % 18.4 L %
(20.5-51.1)
Monocytes % 9.5 H %
(1.7-9.3)
Sodium 148 H mmol/L
(135-145)
Chloride 109 H mmol/L
(98-107)
Carbon Dioxide 16 L mmol/L
(22-30)
BUN 21 H mg/dl
(7-17)
Calcium 10.3 H mg/dl
(8.4-10.2)
AST 58 H U/L
(14-36)
ALT 41 H U/L
(0-35)
Total Protein 8.3 H g/dl
(6.3-8.2)
Albumin 5.4 H g/dl
(3.5-5.0)
Urine Ketones 3+ A
(Negative)
Ur Barbiturates Screen Positive H
(Negative)
02/27/24 14:28
02/27/24 16:44
Vital Signs
Initial and Last Documented VS:
Initial Vital Signs
Temp Pulse Resp BP Pulse Ox
98.5 F 78 18 172/94 99
02/27/24 14:04 02/27/24 14:04 02/27/24 14:04 02/27/24 14:04 02/27/24 14:04
Last Documented Vital Signs
Temp Pulse Resp BP Pulse Ox
98.5 F 130 28 202/120 100
02/27/24 14:04 02/27/24 20:00 02/27/24 20:00 02/27/24 20:00 02/27/24 20:00
<Nelda Grimm MD - Last Filed: 02/27/24 15:45>
Orders/Labs/Results
Orders:
Orders
02/27/24 14:02
ECG [Electrocardiogram (*1)] Urgent
Reason for Study: Fatigue / Weakness
02/27/24 14:03
EKG- Treatment ONCE
02/27/24 14:19
Straight Cath As Directed
Frequency: One time now
02/27/24 14:28
Complete Blood Count/With Diff Urgent
Urine Culture Reflexed from UA [Urinalysis Reflex To Culture] Urgent
Date Specimen was Collected: 02/27/24
Time Specimen was Collected: 14:19
Urine Drug Abuse Screen Urgent
Date Specimen was Collected: 02/27/24
Time Specimen was Collected: 14:19
02/27/24 15:02
Add On- LAB Urgent
Tests Added?: lipase
02/27/24 15:03
CT Head W/o Iv Contrast Urgent
Comment:
Reason For Exam: altered mental status
02/27/24 16:44
Comprehensive Metabolic Panel Urgent
Lipase Urgent
Troponin I Urgent
02/27/24 18:38
Admit/Transfer Patient As Directed
Co-Sign Provider:
Level of Care: Inpatient admission
Assign to:: IMU- Intermediate Care
Physician / Group: Timo
Diagnosis: Seizure,
Reason for Hospitalization: IVFs
Expected length of stay greater than two midnights?: Yes
ELOS- Estimated Length of Stay in days: 3
I certify the patient meets the requirements for IP care: Yes
PRN Pain Medication Management As Directed
May give lesser potent ordered pain med per pt: Yes
preference::
Protocol:: Medication orders for pain may be administered in a
manner that supports deferring to patient preference
when the pt is:
- Requesting an ordered lesser potent pain medication.
Least to most potent pain medications are defined
as: acetaminophen < NSAID < tramadol < opioids
(morphine, oxycodone, hydromorphone).
- Requesting a lesser dose of the same medication IF
ORDERED.
- Requesting a less intrusive route of administration
if both routes are prescribed by the provider (PO <
IV).
02/27/24 18:43
Code Status As Directed
Resuscitation Status: Full Code
02/27/24 18:54
Add On- LAB Urgent
Tests Added?: urine drug screen
02/27/24 19:33
B-Hydroxybutyrate Urgent
Lactic Acid Urgent
Abnormal Lab Results
02/27/24 02/27/24
14:28 16:44
MPV 11.6 H fL
(7.4-10.4)
Absolute Monos (auto) 0.8 H 10^3/uL
(0.1-0.6)
Lymphocytes % 18.4 L %
(20.5-51.1)
Monocytes % 9.5 H %
(1.7-9.3)
Sodium 148 H mmol/L
(135-145)
Chloride 109 H mmol/L
(98-107)
Carbon Dioxide 16 L mmol/L
(22-30)
BUN 21 H mg/dl
(7-17)
Calcium 10.3 H mg/dl
(8.4-10.2)
AST 58 H U/L
(14-36)
ALT 41 H U/L
(0-35)
Total Protein 8.3 H g/dl
(6.3-8.2)
Albumin 5.4 H g/dl
(3.5-5.0)
Urine Ketones 3+ A
(Negative)
Ur Barbiturates Screen Positive H
(Negative)
02/27/24 14:28
02/27/24 16:44
Vital Signs
Initial and Last Documented VS:
Initial Vital Signs
Temp Pulse Resp BP Pulse Ox
98.5 F 78 18 172/94 99
02/27/24 14:04 02/27/24 14:04 02/27/24 14:04 02/27/24 14:04 02/27/24 14:04
Last Documented Vital Signs
Temp Pulse Resp BP Pulse Ox
98.5 F 130 28 202/120 100
02/27/24 14:04 02/27/24 20:00 02/27/24 20:00 02/27/24 20:00 02/27/24 20:00
[employer];Nancy Del Valle PA-C - Last Filed: 02/27/24 20:42>
MDM/Problems Addressed
Differential Diagnosis Includes:
ddx include CVA, electrolyte derangement, medication withdrawal, infection, acute delirium, major depressive disorder with psychotic features
MDM/Problems Addressed:
This is a 63-year-old female with a past medical history of depression, chronic pancreatitis, CVA with residual left-sided weakness, presents emergency department today with concerns of altered mental status. Sister present in room with patient and
reports that since patient's discharge from the hospital, patient has been exhibiting bizarre behaviors. Sister reports that patient has been exhibiting repetitive behavior such as calling her mom multiple times in a row, smacking her lips, and
getting on and off of her bed. Sister reports that she is never had behavior like this before. Patient reports that her intermediate is 'trying to kill her' and has been giving her drugs that will hurt her. Because of this, patient has been
refusing to take her medications when she is normally compliant with her medications.
Patient also states that in general she feels sick. Patient denies chest pain or shortness of breath. On physical exam, she does have CN II-XII intact, but chronic left sided weakness. Pill rolling tremor noted to left hand. Repetitive lip
smacking noted. Patient oriented to person and place but not time. Patient has anxious affect, paranoia. Patient denies auditory or visual hallucinations. Her CBC shows no white count suggesting infectious etiology, she has no fever, her CMP shows
that she is acidotic with elevated ion gap, and proteinuria, likely due to starvation ketosis. Her glucose is normal. Will admit for further workup and medication reconcilliation.
Chronic conditions affecting care:
Chronic left-sided weakness, prior CVA, chronic pancreatitis
<Nancy Del Valle PA-C - Last Filed: 02/27/24 20:42>
*Pulse Oximetry
Patient hypoxic: no
*Critical Care Note
Total Time (30-74mins, 75-104mins- exclusive of procedures): Not Applicable
Data Reviewed
Review of Other/Old Records Reveals: Records (Reviewed previous ER physician documentation from 02/22/2024 where I saw patient for altered mental status and acute kidney injury, reviewed discharge summary from 02/24/2024, reviewed medications that
were stopped for patient)
Source: patient and records
Prescriptions/Medications Considered But Not Given:
n/a
Further Testing Considered But Not Given:
n/a
<Nancy Del Valle PA-C - Last Filed: 02/27/24 20:42>
Update Note
Update Note:
20:03-- I was notified that patient had a seizure. Patient noted to have a seizure in 2014 but has no known hx of seizure disorder. Patient given 2mg of ativan. Hospitalist on the case made aware, patient acutely tachycardic and hypertensive
following seizure. Hospitalist at bedside. Patient given Keppra by hospitalist [email or web address]
ED Attending Note
<Nancy Del Valle PA-C - Last Filed: 02/27/24 20:42>
-
Portions of this chart may have been created with voice recognition software.� Occasional wrong word or��sound alike� substitutions may have occurred due to the inherent limitations of voice recognition software.
<Nelda Grimm MD - Last Filed: 02/27/24 15:45>
ED Attending Note
Patient seen and examined by attending physician: Yes
ED Attending Note:
63 yr old female recent dx of polypharmacy (and resulting med changes), NAVDEEP, noted since Tuesday to have increasingly 'bizarre' and repeativite behaviours, such as calling mom over and over again asking for help. She is convinced staff anesthesiologist trying to
poison/kill her, has been refusing most meds, not eating/drinking. Denies other paranoid thoughts, not hearing voices, no si or hi. NOted to be sl agitated here, oriented to person/place and time. L sided baseline weakness. W/u pending, ddx
includes but not limited to electrylytc d/o, cva, psychatric illness, infx, etc.
Discharge Plan
Departure
Patient Disposition: Admit
Date of Disposition: 02/27/24
Time of Disposition: 18:03
Admit to: Med/Surg
Presentation/result/management discussed w/ accepting MD/DO: Hospitalist
Condition: Fair
Discharge Problem:
Altered mental status
Interventions
Interventions:
*Risk Screen - Suicide Last Done: 02/27/24 14:04
*General Assessment Last Done: 02/27/24 14:04
*Neglect/Abuse Screening Last Done: 02/27/24 14:04
ED- Fall Risk Assessment Last Done: 02/27/24 15:30
*ED COVID-19 Vaccine History Last Done: 02/27/24 20:20
ED- Cardiac Assessment Last Done: 02/27/24 15:30
ED- Neurological Assessment Last Done: 02/27/24 15:30
ED- Pulmonary Assessment Last Done: 02/27/24 15:30
[2024-02-27 15:22] LABS: Urine Albumin Trace (Neg - Trace); Urine Bilirubin Negative (Negative); Urine Character Clear (Clear); Urine Color Yellow; Urine Glucose Negative (Negative); Urine Ketone 3+ (Negative); Urine Leukocyte Negative (Negative); Urine Nitrite Negative (Negative); Urine Occult Blood Negative (Negative); Urine Urobilinogen Negative (Neg - 1+)
[2024-02-27 15:57] LABS: % Basophils 0.6 % (0-2); % Eosinophils 0.4 % (0-6); % Immature Granulocytes 0.2 % (0-0.5); % Lymphocytes 18.4 % (20.5-51.1); % Monocytes 9.5 % (1.7-9.3); % Neutrophils 70.9 % (42.2-75.2); Absolute Basophils 0.1 10^3/uL (0-0.2); Absolute Lymphocytes 1.5 10^3/uL (1.2-3.4); Absolute Monocytes 0.8 10^3/uL (0.1-0.6); Absolute Neutrophils 5.8 10^3/uL (1.4-6.5); Hematocrit 39.4 % (37.0-47.0); Hemoglobin 13.8 g/dL (12.0-16.0); Mean Corpuscular Hgb 30.4 pg (27.0-31.0); Mean Corpuscular Volume 86.8 fL (81.0-99.0); Mean Platelet Volume 11.6 fL (7.4-10.4); Nucleated Red Blood Cells % 0 %; Platelet Count 232 10^3/uL (130-400); Red Blood Cell Count 4.54 10^6/uL (4.20-5.40); Red Cell Dist. Width 13.8 % (11.5-14.5); White Blood Cell Count 8.2 10^3/uL (4.8-10.8)
[2024-02-27 17:10] LABS: ALT (SGPT) 41 U/L (0-35); AST (SGOT) 58 U/L (14-36); Albumin 5.4 g/dl (3.5-5.0); Alkaline Phosphatase 125 U/L (38-126); Blood Urea Nitrogen 21 mg/dl (7-17); Calcium 10.3 mg/dl (8.4-10.2); Carbon Dioxide 16 mmol/L (22-30); Chloride 109 mmol/L (98-107); Glucose 79 mg/dl (70-99); Lipase 68 U/L (23-300); Potassium 3.8 mmol/L (3.5-5.1); Sodium 148 mmol/L (135-145); Total Bilirubin 0.7 mg/dl (0.2-1.3); Total Protein 8.3 g/dl (6.3-8.2); eGFR > 60.00
[2024-02-27 17:21] LABS: Troponin I < 0.012 ng/ml
--- NOTE | 2024-02-27 18:45 | HPS.HSE ---
Addendum entered and electronically signed by Jaya Greenwood DO 02/27/24 20:45:
Patient seen and examined independently. Agree with findings and plan as set forth by Dasia Mathews PA-C.
Patient is a 63y F with PMH significant for prior alcohol use disorder, seizure (presumably due to withdrawal) and more recent / major CVA with resultant L hemiparesis and neglect who was admitted to from 02/21 - 02/23 for TME felt to be secondary
to polypharmacy. During that visit her buspirone, citalopram, trazodone and pregabalin were discontinued. Patient's mental status improved and she returned to the [place] on 02/24/24. Since her return, patient has been exhibiting increasingly paranoid
behaviors with agitation. She has been refusing her medications. She was sent to the the ED this evening for evaluation. She was somewhat restless and agitated in the ED and removed several IVs.
Following her initial evaluation / admission, patient was noted to be actively seizing with tonic-clonic movements of the head and RUE, evident aspiration and oral secretions.
Patient was given IV Ativan and a loading dose of Keppra. She will be upgraded to IMU admission and further evaluation pursued.
Ass:
Seizure
Altered Mental Status / Mood Disorder
Anion Gap Metabolic Acidosis
Hypernatremia / Dehydration
Aspiration +/- Pneumonia
Left Hemiparesis / Hemineglect as Late Effect of CVA
ASCVD / Prior CVA
History of Alcohol Use Disorder
Chronic Splenic Vein Thrombosis
Chronic Pancreatitis
Plan:
Admit for further evaluation and treatment.
Keppra dose given i the ED and will continue with 500mg BID for now.
CT head done in the ED this evening with no acute findings - very large area of encephalomalacia from prior CVA.
Several risk factors for seizure activity including prior seizures (presumed due to EtOH withdrawal), large stroke / encephalomalacia, recent med changes, etc.
Neurology evaluation. Continue Keppra. Ativan PRN breakthrough seizures.
IV abx for recurrent aspiration / pneumonia v pneumonitis.
Elevated HOB / aspiration precautions.
IVF support ad follow labs / lytes / anion gap.
Lactate / B-OH pending.
Patient remains on multiple medications that could likely be reduced or eliminated (primidone, Requip QID?, etc)
Original Note:
Family Physician
-
Family Physician: INTERVIEWE UNKNOWN - PT NOT
Chief Complaint
-
Change in Mental Status
History of Present Illness
Patient is a 63 y/o female past medical history of CVA with chronic left hemiparesis, chronic pancreatitis, anxiety/depression who presents with change in mental status. Patient was recently discharged from [facility] on February 23
after a hospitalization for polypharmacy and pneumonia. During her hospitalization her Buspirone, Citalopram, Pregabalin and Trazodone were stopped, and Oxycodone dose was decreased. She was also discharged on Augmentin to complete a coarse for
likely aspiration pneumonia. Apparently since discharged patient has been experiencing [facility] behaviors at the jail. She is refusing her medications stating that the staff at the facility are 'trying to kill her.'
After my initial evaluation patient had a witnessed seizure while still in the emergency department.
Medical History
Past Medical History
Past Medical History: Reports Other
Additional Past Medical History:
CVA with residual Left Sided Hemiparesis
Essential Hypertension
Hyperlipidemia
Chronic Pancreatitis
Chronic Pain with Opioid Dependence
Anxiety / Depression
Alcohol Use Disorder
Peripheral Neuropathy
Restless Leg Syndrome
Seizure Disorder
Chronic Splenic Vein Thrombosis
Breast Cancer s/p Lumpectomy, Chemotherapy and Radiation
Past Surgical History: Reports Other
Additional Past Surgical History:
Left Breast Lumpectomy
Hysterectomy
Cholecystectomy
Social History
Tobacco: Smoker (1 pack/day)
Alcohol: Daily
Drug: None
Personal: Other (Lives with mother)
Family History
Family History: Not pertinent
Allergies / Home Medications
Allergies reflects when Allergies were last updated in [facility].
Home Medications with original date entered in [facility]
Allergy/Medication List:
Allergies
Allergy/AdvReac Type Severity Reaction Status Date / Time
adhesive Allergy Rash Verified 02/27/24 14:03
diflunisal Allergy Unknown Verified 02/27/24 14:03
silicone Allergy Unknown Verified 02/27/24 14:03
sumatriptan Allergy Unknown Verified 02/27/24 14:03
Home Medications
folic acid 1 mg tablet 1 mg PO DAILY Supplement 12/31/20
famotidine 40 mg tablet 40 mg PO HS Gastrointestinal issue 06/19/21
thiamine HCl (vitamin B1) 100 mg tablet 100 mg PO BID Supplement 06/19/21
dicyclomine 10 mg capsule 10 mg PO DAILYPRN PRN loose stools 08/19/21
primidone 250 mg tablet 250 mg PO HS tremors 11/23/21
xjqanz-sdoxuqfg-ysgwihf 36,000-114,000-180,000 unit capsule,delay rel (Creon) 1 cap PO QPM 03/06/22
sidazw-jhzczmim-lomshjj 36,000-114,000-180,000 unit capsule,delay rel (Creon) 2 cap PO MEALS Gastrointestinal issue 03/06/22
acetaminophen 325 mg tablet (Tylenol) 650 mg PO Q4HPRN PRN mild pain/temp>100 05/26/22
bisacodyl 10 mg rectal suppository (Dulcolax (bisacodyl)) 10 mg DE DAILYPRN PRN if no bm in 24hrs after MOM 05/26/22
magnesium hydroxide 400 mg/5 mL oral suspension (Milk of Magnesia) 2,400 mg PO DAILYPRN PRN if no bm after 3 days 05/26/22
sennosides 8.6 mg tablet (senna) 17.2 mg PO Q12H 05/26/22
sodium phosphates 19 gram-7 gram/118 mL enema (Fleet Enema) 118 ml DE DAILYPRN PRN if no bm in 24hrs after bisacodyl 05/26/22
albuterol sulfate 2.5 mg/3 mL (0.083 %) solution for nebulization 2.5 mg inhalation R Q8 02/22/24
albuterol sulfate 90 mcg/actuation aerosol inhaler 2 puff inhalation R Q4HPRN PRN sob/wheezing 02/22/24
alendronate 70 mg tablet 70 mg PO FR 02/22/24
amlodipine 10 mg tablet 10 mg PO DAILY 02/22/24
apixaban 5 mg tablet (Eliquis) 5 mg PO BID 02/22/24
atorvastatin 40 mg tablet 40 mg PO HS 02/22/24
baclofen 5 mg tablet 5 mg PO TID 02/22/24
calcium carbonate 600 mg PO BID 02/22/24
diphenhydramine HCl 2 % topical gel (Benadryl) 1 applic topical Q6HPRN PRN itching/rash 02/22/24
docusate sodium 100 mg capsule 200 mg PO DAILY 02/22/24
ergocalciferol (vitamin D2) 1,250 mcg (50,000 unit) capsule 1,250 mcg PO MO 02/22/24
estradiol 10 mcg vaginal tablet (Vagifem) 10 mcg vaginal WESA@2200 02/22/24
ferrous sulfate 325 mg (65 mg iron) tablet 325 mg PO DAILY 02/22/24
fluticasone propionate 50 mcg/actuation nasal spray,suspension 2 spray intranasal BID 02/22/24
guaifenesin 100 mg/5 mL oral liquid 200 mg PO Q4HPRN PRN cough 02/22/24
guaifenesin 600 mg tablet, extended release 12 hr (Mucinex) 600 mg PO Q12H 02/22/24
hydrocortisone 1 % topical cream 1 applic topical Q6HPRN PRN itching 02/22/24
lidocaine 5 % topical ointment 1 applic topical TID left hip pain 02/22/24
loratadine 10 mg tablet 10 mg PO DAILY 02/22/24
losartan 50 mg tablet 50 mg PO DAILY 02/22/24
menthol 5 % topical patch (Icy Hot (menthol)) 1 patch topical DAILY left deltoid 02/22/24
menthol 5 % topical patch (Icy Hot (menthol)) 1 patch topical DAILY left knee 02/22/24
menthol 5 % topical patch (Icy Hot (menthol)) 1 patch topical DAILY left thigh 02/22/24
ondansetron HCl 4 mg tablet 4 mg PO Q8HPRN PRN nausea/vomiting 02/22/24
pantoprazole 40 mg tablet,delayed release 40 mg PO DAILY 02/22/24
polyethylene glycol 3350 17 gram oral powder packet 17 g PO BID 02/22/24
ropinirole 0.5 mg tablet 0.5 mg PO QID 02/22/24
sodium chloride 1,000 mg soluble tablet 1,000 mg PO DAILY 02/22/24
tamsulosin 0.4 mg capsule 0.4 mg PO DAILY 02/22/24
tiotropium bromide 2.5 mcg/actuation mist for inhalation 2 puff inhalation R DAILY 02/22/24
topiramate 25 mg tablet (Topamax) 25 mg PO DAILY 02/22/24
amoxicillin 875 mg-potassium clavulanate 125 mg tablet 1 tab PO BID #10 tabs 02/24/24
cainulfvac-gotwyqfsxcbhx-utonqjpf 50 mg-300 mg-40 mg capsule (Fioricet) 2 cap PO Q8HPRN PRN headache #20 caps 02/24/24
oxycodone 5 mg tablet 5 mg PO Q8H #20 tabs 02/24/24
Review of Systems
-
A 12 point ROS was completed and negative except as noted: Yes
Constitutional: Denies Fever or Chills
Respiratory: Denies Cough or Trouble Breathing
Cardiac: Denies Chest Pain or Palpitations
Abdomen/GI: Reports Abdominal Pain (Chronic) and Nausea (Chronic); Denies Diarrhea or Constipated
Physical Exam
Vital Signs
Vital Signs
Temp Pulse Resp BP Pulse Ox
98.5 F 78 20 150/74 98
02/27/24 14:04 02/27/24 17:28 02/27/24 17:28 02/27/24 17:28 02/27/24 17:28
Physical Exam
General: Comfortable and Conversant
HEENT: NormoCephalic, Anicteric and Atraumatic
Respiratory: Clear and Non Labored Respirations
Cardiac: S1/S2 and Regular Rhythm
GI: Soft and Non Tender
Genito-urinary: Clear Urine
Musculoskeletal: No Clubbing, No Cyanosis and No Edema
Skin: Warm and Dry
Neuro: Awake, Alert, Oriented (During my initial evaluation patient was able to correctly identify the location as [facility], the year is 2023, and Harrison is the president), Facial Droop (Left) and Other (Left hemiparesis)
Psych: Calm
Laboratory Results
-
02/27/24 14:28
02/27/24 16:44
Laboratory Results
Total Bilirubin 0.7 mg/dl (0.2-1.3) 02/27/24 16:44
AST 58 U/L (14-36) H 02/27/24 16:44
ALT 41 U/L (0-35) H 02/27/24 16:44
Alkaline Phosphatase 125 U/L (38-126) 02/27/24 16:44
Troponin I < 0.012 ng/ml 02/27/24 16:44
Lipase 68 U/L (23-300) 02/27/24 16:[address]:
1. No CT evidence for acute intracranial hemorrhage or transcortical infarct.
2. LARGE CHRONIC TRANSCORTICAL INFARCT in the RIGHT MIDDLE CEREBRAL ARTERY TERRITORY with a large 7 cm region of encephalomalacia in the right frontal, parietal, and temporal lobes and right insular cortex which appears unchanged.
3. Small chronic lacunar infarct in the head of the right caudate nucleus.
Data Reviewed
-
Lab Data: Labs Reviewed by me
Impression/Plan
-
Seizure, possibly withdrawal related
-Consult Neurology
-Start Keppra 1000mg load given in ED, then maintain 500mg BID
-Check EEG in AM
Anion Gap Acidosis, possibly related to starvation ketoacidosis vs lactic acidosis from seizure
-Check lactic acid and B-hydroxybutyrate
-Continue D5 1/2 NS
-Recheck labs in AM
Hypernatremia
-Stop sodium tablets
-Give IVFs overnight
-Recheck sodium in AM
Recent Pneumonia
-Transition to Zosyn to cover for aspiration that likely occurred during her seizure
CVA with residual Left Sided Hemiparesis
-Wheel-chair bound at baseline
-Continue baclofen
Chronic Splenic Vein Thrombosis
-Continue Eliquis
Essential Hypertension
-Continue Amlodipine
Hyperlipidemia
-Continue atorvastatin
Chronic Pancreatitis
-Continue Creon
Chronic Pain with Opioid Dependence
-Continue oxycodone 5mg TID
Tremors / Restless Leg Syndrome
-Continue primidone and ropinirole
DVT proph: Eliquis
Code Status: Full Code
[2024-02-27 19:27] LABS: Amphetamines Negative (Negative); Barbiturates Positive (Negative); Benzodiazepines Negative (Negative); Buprenorphine Negative (Negative); Cocaine Negative (Negative); Marijuana Negative (Negative); Methadone Negative (Negative); Methamphetamines Negative (Negative); Opiates Negative (Negative); Phencyclidine Negative (Negative); Tricyclic Antidepressants Negative (Negative)
[2024-02-27] MEDS: ATIVAN 2 MG IV (19:55)
[2024-02-27] MEDS: KEPPRA 1000 MG IV (20:07)
--- NOTE | 2024-02-27 20:09 | EDRN ---
@1954 2mg of ativan given by RN due to pt seizing. Verbal order given by TREE Reina. Vial left with primary RN Fausto GUEVARA to be scanned into AUG.
[2024-02-27] MEDS: ELIQUIS 5 MG PO (21:54)
[2024-02-27] MEDS: SENOKOT 17.2 MG PO (21:55)
[2024-02-27] MEDS: LIPITOR 40 MG PO (21:55)
[2024-02-27] MEDS: PEPCID 40 MG PO (21:55)
[2024-02-27] MEDS: MIRALAX 17 GRAMS PO (21:55)
[2024-02-27] MEDS: VITAMIN B1 100 MG PO (21:55)
[2024-02-27] MEDS: D5/0.45%NACL 1000 IV (21:56)
[2024-02-27] MEDS: ROXICODONE 5 MG PO (21:56)
[2024-02-27] MEDS: ZOSYN 50 IV (21:56)
[2024-02-27] MEDS: REQUIP 0.5 MG PO (21:56)
[2024-02-27] MEDS: LIORESAL 5 MG PO (21:56)
[2024-02-27] MEDS: MYSOLINE 250 MG PO (21:57)
[2024-02-27 22:30] LABS: B-Hydroxybutyrate 2.58 mmol/L (0.02-0.27)
--- NOTE | 2024-02-27 22:50 | PTCARENOTE ---
Pt AAOx1 to 2. forgetful and confused. Drowsy at times. Unable to move Lt side due to hx CVA. No seizure noted. ST to NSR in the monitor. Lung sounds are diminished w/ expiatory wheezing. SaO2 94% RA. Tachypneic, dyspneic w/ exertion and occasional
cough. Abd round. Purewick in place for incontinence. Hard to get blood work from pt and IV team called. Midline placed on the Rt arm. Call dooley within reach. Q2 turn.
[2024-02-27 23:21] LABS: Lactic Acid 0.8 mmol/L (0.7-2.0)
[2024-02-27] MEDS: VENTOLIN NEBULES 2.5 MG INH (23:30)
[2024-02-28] VITALS (12 sets, daily range): BP systolic 128–167; BP diastolic 69–95; BMI 26.7
[2024-02-28] MEDS: ZOSYN 50 IV ×2 (03:17→09:20)
[2024-02-28] MEDS: ROXICODONE PO ×2 (05:35→14:19)
[2024-02-28 05:50] LABS: Hemoglobin 14.2 g/dL (12.0-16.0); Mean Corp Hgb Conc. 34.6 g/dL (33.0-37.0); Mean Corpuscular Hgb 31.5 pg (27.0-31.0); Mean Corpuscular Volume 90.9 fL (81.0-99.0); Mean Platelet Volume 11.6 fL (7.4-10.4); Platelet Count 189 10^3/uL (130-400); Red Blood Cell Count 4.51 10^6/uL (4.20-5.40); Red Cell Dist. Width 13.6 % (11.5-14.5); White Blood Cell Count 11.9 10^3/uL (4.8-10.8)
[2024-02-28 06:00] LABS: ALT (SGPT) 31 U/L (0-35); AST (SGOT) 43 U/L (14-36); Alkaline Phosphatase 84 U/L (38-126); Blood Urea Nitrogen 20 mg/dl (7-17); Calcium 8.8 mg/dl (8.4-10.2); Carbon Dioxide 17 mmol/L (22-30); Chloride 113 mmol/L (98-107); Direct Bilirubin 0.4 mg/dl (0.0-0.4); Estimated Creatinine Clearance 88 ml/min; Glucose 162 mg/dl (70-99); Potassium 3.9 mmol/L (3.5-5.1); Sodium 145 mmol/L (135-145); Total Bilirubin 0.5 mg/dl (0.2-1.3); Total Protein 6.6 g/dl (6.3-8.2); eGFR > 60.00
[2024-02-28 06:26] LABS: TSH Reflex To Free T4 0.71 uIU/ml (0.47-4.68)
[2024-02-28] MEDS: VENTOLIN NEBULES 2.5 MG INH ×3 (07:29→23:36)
[2024-02-28] MEDS: SPIRIVA RESPIMAT 2.5 MCG 2 PUFF INH (07:29)
--- NOTE | 2024-02-28 08:23 | CON.NEURO ---
Addendum entered and electronically signed by Bren Diaz MD 02/28/24 16:56:
Please clarify indication for primidone therapy given interaction with the Eliquis
Addendum entered and electronically signed by Bren Diaz MD 02/28/24 14:34:
With clarified indications for treatment on therapy given interaction with Eliquis and consider Lamictal and mood stabilizer antiepileptic therapy. Please continue Keppra 500 mg twice daily for now.
Original Note:
Consultation
Order
Date of Consultation: 02/28/24
Requesting Provider:
Reason for Consult: Seizure, encephalopathy
CC: abdominal pain
HPI: This is a 63-year-old [place] woman who presented to [facility] on February 27, 2024 with encephalopathy. According to EMR patient has had nausea/emesis and was not taking he medications including Lyrica, Topamax, Baclofen and
primidone prior the admission.
She had a witnessed seizure in the emergency room lasting for unknown time tonic-clonic movements in the right upper extremity.
Ms. Borden was given Ativan 2 mg at 19:55 on 02/27/24 loaded with Keppra 1g and started on Zosyn
Ms. Borden states that this was her second seizure in her life.
Vanessa was hospitalized to [facility] from 02/21 - 02/24/2024 for encephalopathy felt to be due to polypharmacy.
ER VS: 172/94, 78�130, afebrile
Labs: Glucose�79, calcium�10.3, sodium�148, CO2�16, WBCs�8.2�11.9, ALT�58, AST�41, UA�positive for ketones, urine tox�positive for barbiturate(on Fioricet), negative for oxycodone
CT head-chronic large R MCA and lacunar infarct in the head of the right caudate nucleus, moderate atrophy.
EKG: sinus tachy.
PDMP:Pregabalin 150 Mg 29 capsules filled in on 02/14/2024, oxycodone 10 mg 60 tablets filled in on 02/19/2024, oxycodone 5 mg 42 tablets filled the end on 02/24/2024
PMH:L breast cancer(s/p chemo), R MCA stroke, chronic pancreatitis, chronic opioid therapy, migraine ECHAVARRIA, COPD, chronic Splenic Vein Thrombosis, polysubstance addiction, withdrawal seizure, INGRID, MDD, lumbar DJD,
PSH: L lumpectomy, cholecystectomy
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
FH:father-CAD, abdominal aneurysm, COPD
All:diflunisal, sumatriptan
ROS: Limited due to cooperation, positive for abdominal pain
General: Well developed. In no acute distress.
Cardio: Regular rate and rhythm without murmur. Extremities are without cyanosis or edema.
Neuro:
Mental Status: Alert, attends to examiner briefly. Nods appropriately and follows requests consistently. States that talking causes worsening of abdominal pain. Limited cooperation. Minimal eye contact.
Cranial Nerves: . Pupils are equally round and reactive to light. EOMs full. Left hemianopsia no ptosis. No nystagmus. V1-V3 intact to light touch and pinprick bilaterally, symmetric. Face symmetric. Normal hearing AU. The palate elevated
well. SCMs and traps 5/5. Tongue midline. Edentulous dysarthria.
Motor: spastic left hemiplegia
Reflexes: 2+ throughout the upper extremities and knees. 2/2 in AJs. Plantar responses flexor bilaterally.
Sensory: Limited exam due to attention and cooperation
Coordination: No tremors, clonic movements
Gait: deferred
Assessment and Plan:
I. Probable withdrawal seizure
II. Multifactorial encephalopathy (toxic, vascular)
III. Chronic right MCA territory infarct (cryptogenic?)
IV. History of migraine
V. History of polysubstance addiction
-Seizure precautions
-Avoid medication known to lower seizure threshold (baclofen). May consider Botox therapy for spasticity
-Continue primidone 250 mg QHS
-Nicotine patch
-Continue thiamine
-Brain MRI without gadolinium in view of malignancy history
-Plan to wean off Fioricet as outpatient
-Addictive psychiatry consult
-Please obtain medical records from [facility] to clarify etiology of right MCA stroke
-Continue Eliquis 500 mg twice daily
I personally reviewed all radiology and labs along with past medical records pertinent to current medical problems. Total time spent in patient care is 60 minutes.
Thank you for allowing us to participate in the care of this patient. We will continue to follow. Please do not hesitate to contact us with any questions or concerns.
Subjective/Objective
Subjective Data
Date of Service: February 28, 2024
Objective Data
Vital Signs
Temp Pulse Resp BP Pulse Ox
36.8 C 76 18 150/74 99
02/28/24 08:02 02/28/24 07:32 02/28/24 07:32 02/28/24 06:00 02/28/24 07:32
Lab Results
02/28/24 05:22
02/28/24 05:23
Sodium 145 mmol/L (135-145) 02/28/24 05:23
Potassium 3.9 mmol/L (3.5-5.1) 02/28/24 05:23
BUN 20 mg/dl (7-17) H 02/28/24 05:23
Glucose 162 mg/dl (70-99) H 02/28/24 05:23
Calcium 8.8 mg/dl (8.4-10.2) D 02/28/24 05:23
Ur Buprenorphine Negative (Negative) 02/27/24 14:28
Patient Allergies
adhesive Allergy (Verified 02/27/24 14:03)
Rash
diflunisal Allergy (Verified 02/27/24 14:03)
Unknown
silicone Allergy (Verified 02/27/24 14:03)
Unknown
sumatriptan Allergy (Verified 02/27/24 14:03)
Unknown
Medications
-
Active Medications
Generic Name Dose Route Start Last Admin
Trade Name Freq PRN Reason Stop Dose Admin
Acetaminophen 650 mg 02/27/24 20:44
Acetaminophen 325 Mg Tablet PO 03/26/24 20:43
Q4HPRN PRN
mild pain/temp>100
Albuterol Sulfate 2.5 mg 02/28/24 00:00 02/28/24 07:29
Albuterol Nebs 2.5 Mg/3 Ml Ampul INH 2.5 mg
R Q8 IZABEL Administration
Protocol
Amlodipine Besylate 10 mg 02/28/24 08:00
Amlodipine 10 Mg Tablet PO 03/27/24 07:59
DAILY IZABEL
Apixaban 5 mg 02/27/24 20:44 02/27/24 21:54
Apixaban (Eliquis) 5 Mg Tablet PO 03/26/24 20:43 5 mg
BID IZABEL Administration
Atorvastatin Calcium 40 mg 02/27/24 22:00 02/27/24 21:55
Atorvastatin (Lipitor) 40 Mg Tablet PO 03/26/24 21:59 40 mg
HS IZABEL Administration
Baclofen 5 mg 02/27/24 22:00 02/27/24 21:56
Baclofen 5 Mg Tablet PO 03/26/24 21:59 5 mg
TID IZABEL Administration
Famotidine 40 mg 02/27/24 22:00 02/27/24 21:55
Famotidine 40 Mg Tablet PO 03/26/24 21:59 40 mg
HS IZABEL Administration
Folic Acid 1 mg 02/28/24 08:00
Folic Acid 1 Mg Tablet PO 03/27/24 07:59
DAILY IZABEL
Guaifenesin 200 mg 02/27/24 20:44
Guaifenesin Oral Solution (200 Mg/10 Ml) Cup PO 03/26/24 20:43
Q4HPRN PRN
cough
Piperacillin Sod/Tazobactam Sod 3.375 gram in 50 mls @ 100 mls/hr 02/27/24 21:00 02/28/24 03:17
Zosyn IV 50 mls
Q6H IZABEL Administration
Dextrose/Sodium Chloride 1,000 mls @ 100 mls/hr 02/27/24 20:44 02/27/24 21:56
D5/0.45%Nacl IV 1,000 mls
.Q10H IZABEL Administration
Levetiracetam 500 mg 02/28/24 08:00
Levetiracetam (100 Mg/Ml) 500 Mg/5 Ml Vial IV 03/27/24 07:59
Q12 IZABEL
Lidocaine 3 patch 02/28/24 08:00
Lidocaine 4% Topical Patch TOPICAL 03/27/24 07:59
DAILY IZABEL
Protocol
Lorazepam 1 mg 02/27/24 20:44
Lorazepam 2 Mg/Ml Vial IV 03/26/24 20:43
Q4HPRN PRN
seizure
Losartan Potassium 50 mg 02/28/24 08:00
Losartan 50 Mg Tablet PO 03/27/24 07:59
DAILY IZABEL
Oxycodone HCl 5 mg 02/27/24 20:44 02/28/24 05:35
Oxycodone 5 Mg Regular Release Tablet PO 03/12/24 20:43 Not Given
Q8H IZABEL
Pancrelipase 2 capsule 02/28/24 08:00
Pancrelipase (Zenpep) Delayed Release Capsule PO 03/27/24 07:59
MEALS IZABEL
Pancrelipase 1 capsule 02/28/24 18:00
Pancrelipase (Zenpep) Delayed Release Capsule PO 03/27/24 17:59
QPM IZABEL
Pantoprazole Sodium 40 mg 02/28/24 08:00
Pantoprazole 40 Mg Delayed Release Tablet PO 03/27/24 07:59
DAILY IZABEL
Patch Removal 0 patch 02/28/24 20:00
Remove Lidocaine Patch REMOVE 03/27/24 19:59
DAILY@2000 IZABEL
Polyethylene Glycol 17 grams 02/27/24 20:44 02/27/24 21:55
Polyethylene Glycol Powder 17 Grams Packet PO 03/26/24 20:43 17 grams
BID IZABEL Administration
Primidone 250 mg 02/27/24 22:00 02/27/24 21:57
Primidone 250 Mg Tablet PO 03/26/24 21:59 250 mg
HS IZABEL Administration
Ropinirole HCl 0.5 mg 02/27/24 22:00 02/27/24 21:56
Ropinirole 0.25 Mg Tablet PO 03/26/24 21:59 0.5 mg
QID IZABEL Administration
Sennosides 17.2 mg 02/27/24 21:00 02/27/24 21:55
Sennosides (Senokot) 8.6 Mg Tablet PO 03/26/24 20:59 17.2 mg
Q12H IZABEL Administration
Sodium Chloride 0 flush 02/27/24 21:00
Sodium Chloride 0.9% (Flush) Syringe IV 03/26/24 20:59
PER PROTOCOL IZABEL
Sodium Chloride 0.5 ml 02/27/24 20:55
Nss (Pf) 10 Ml Vial For Ativan 1 Mg Dose IV 03/26/24 20:54
Q4HPRN PRN
IV LORAZEPAM DILUTION
Thiamine HCl 100 mg 02/27/24 20:44 02/27/24 21:55
Thiamine 100 Mg Tablet PO 03/26/24 20:43 100 mg
BID IZABEL Administration
Tiotropium [place] 2 puff 02/28/24 08:00 02/28/24 07:29
Tiotropium (Spiriva Respimat) 2.5 Mcg Inhaler INH 03/27/24 07:59 2 puff
R DAILY IZABEL Administration
Protocol
Topiramate 25 mg 02/28/24 08:00
Topiramate 25 Mg Tablet PO 03/27/24 07:59
DAILY IZABEL
Home Medications
�Medication �Instructions �Recorded
folic acid 1 mg tablet 1 mg PO DAILY Supplement 12/31/20
famotidine 40 mg tablet 40 mg PO HS Gastrointestinal issue 06/19/21
thiamine HCl (vitamin B1) 100 mg 100 mg PO BID Supplement 06/19/21
tablet
dicyclomine 10 mg capsule 10 mg PO DAILYPRN PRN loose stools 08/19/21
primidone 250 mg tablet 250 mg PO HS tremors 11/23/21
vokzzg-pxzvfjbk-ghsvdms 1 cap PO QPM 03/06/22
36,000-114,000-180,000 unit
capsule,delay rel (Creon)
nqvytz-bonopwpu-mohepul 2 cap PO MEALS Gastrointestinal 03/06/22
36,000-114,000-180,000 unit issue
capsule,delay rel (Creon)
acetaminophen 325 mg tablet 650 mg PO Q4HPRN PRN mild 05/26/22
(Tylenol) pain/temp>100
bisacodyl 10 mg rectal suppository 10 mg PA DAILYPRN PRN if no bm in 05/26/22
(Dulcolax (bisacodyl)) 24hrs after MOM
magnesium hydroxide 400 mg/5 mL 2,400 mg PO DAILYPRN PRN if no bm 05/26/22
oral suspension (Milk of Magnesia) after 3 days
sennosides 8.6 mg tablet (senna) 17.2 mg PO Q12H Constipation 05/26/22
sodium phosphates 19 gram-7 118 ml PA DAILYPRN PRN if no bm in 05/26/22
gram/118 mL enema (Fleet Enema) 24hrs after bisacodyl
albuterol sulfate 2.5 mg/3 mL 2.5 mg inhalation R Q8 02/22/24
(0.083 %) solution for nebulization Lung/Breathing Issues
albuterol sulfate 90 mcg/actuation 2 puff inhalation R Q4HPRN PRN 02/22/24
aerosol inhaler sob/wheezing
alendronate 70 mg tablet 70 mg PO FR OSTEOPOROSIS 02/22/24
amlodipine 10 mg tablet 10 mg PO DAILY Blood Pressure 02/22/24
apixaban 5 mg tablet (Eliquis) 5 mg PO BID Blood Clot 02/22/24
Prevention/Tx
atorvastatin 40 mg tablet 40 mg PO HS High Cholesterol 02/22/24
baclofen 5 mg tablet 5 mg PO TID Pain 02/22/24
calcium carbonate 600 mg PO BID Supplement 02/22/24
diphenhydramine HCl 2 % topical 1 applic topical Q6HPRN PRN 02/22/24
gel (Benadryl) itching/rash
docusate sodium 100 mg capsule 200 mg PO DAILY Constipation 02/22/24
ergocalciferol (vitamin D2) 1,250 1,250 mcg PO MO Supplement 02/22/24
mcg (50,000 unit) capsule
estradiol 10 mcg vaginal tablet 10 mcg vaginal WESA@2200 02/22/24
(Vagifem)
ferrous sulfate 325 mg (65 mg 325 mg PO DAILY Supplement 02/22/24
iron) tablet
fluticasone propionate 50 2 spray intranasal BID Allergies 02/22/24
mcg/actuation nasal
spray,suspension
guaifenesin 100 mg/5 mL oral liquid 200 mg PO Q4HPRN PRN cough 02/22/24
guaifenesin 600 mg tablet, 600 mg PO Q12H 02/22/24
extended release 12 hr (Mucinex)
hydrocortisone 1 % topical cream 1 applic topical Q6HPRN PRN itching 02/22/24
lidocaine 5 % topical ointment 1 applic topical TID left hip pain 02/22/24
loratadine 10 mg tablet 10 mg PO DAILY Allergies 02/22/24
losartan 50 mg tablet 50 mg PO DAILY Blood Pressure 02/22/24
menthol 5 % topical patch (Icy Hot 1 patch topical DAILY left deltoid 02/22/24
(menthol))
menthol 5 % topical patch (Icy Hot 1 patch topical DAILY left knee 02/22/24
(menthol))
menthol 5 % topical patch (Icy Hot 1 patch topical DAILY left thigh 02/22/24
(menthol))
ondansetron HCl 4 mg tablet 4 mg PO Q8HPRN PRN nausea/vomiting 02/22/24
pantoprazole 40 mg tablet,delayed 40 mg PO DAILY Gastrointestinal 02/22/24
release Issue
polyethylene glycol 3350 17 gram 17 g PO BID Constipation 02/22/24
oral powder packet
ropinirole 0.5 mg tablet 0.5 mg PO QID 02/22/24
sodium chloride 1,000 mg soluble 1,000 mg PO DAILY 02/22/24
tablet
tamsulosin 0.4 mg capsule 0.4 mg PO DAILY Urinary Issue 02/22/24
tiotropium bromide 2.5 2 puff inhalation R DAILY 02/22/24
mcg/actuation mist for inhalation Lung/Breathing Issues
topiramate 25 mg tablet (Topamax) 25 mg PO DAILY Neurological 02/22/24
Condition
nftniwylhz-iuokaqcfufqfm-usodmfpn 2 cap PO Q8HPRN PRN headache #20 02/24/24
50 mg-300 mg-40 mg capsule caps
(Fioricet)
oxycodone 5 mg tablet 5 mg PO Q8H #20 tabs 02/24/24
amoxicillin 875 mg-potassium 1 tab PO BID Infection 02/28/24
clavulanate 125 mg tablet
Vital Signs and Labs
-
Vital Signs and Labs:
Vital Signs
Temp Pulse Resp BP Pulse Ox
36.8 C 76 18 150/74 99
02/28/24 08:02 02/28/24 07:32 02/28/24 07:32 02/28/24 06:00 02/28/24 07:32
Lab Results
02/28/24 05:22
02/28/24 05:23
Sodium 145 mmol/L (135-145) 02/28/24 05:23
Potassium 3.9 mmol/L (3.5-5.1) 02/28/24 05:23
BUN 20 mg/dl (7-17) H 02/28/24 05:23
Glucose 162 mg/dl (70-99) H 02/28/24 05:23
Calcium 8.8 mg/dl (8.4-10.2) D 02/28/24 05:23
Ur Buprenorphine Negative (Negative) 02/27/24 14:28
Medications
-
Medications:
Generic Name Dose Route Start Last Admin
Trade Name Freq PRN Reason Stop Dose Admin
Acetaminophen 650 mg 02/27/24 20:44
Acetaminophen 325 Mg Tablet PO 03/26/24 20:43
Q4HPRN PRN
mild pain/temp>100
Albuterol Sulfate 2.5 mg 02/28/24 00:00 02/28/24 07:29
Albuterol Nebs 2.5 Mg/3 Ml Ampul INH 2.5 mg
R Q8 IZABEL Administration
Protocol
Amlodipine Besylate 10 mg 02/28/24 08:00
Amlodipine 10 Mg Tablet PO 03/27/24 07:59
DAILY IZABEL
Apixaban 5 mg 02/27/24 20:44 02/27/24 21:54
Apixaban (Eliquis) 5 Mg Tablet PO 03/26/24 20:43 5 mg
BID IZABEL Administration
Atorvastatin Calcium 40 mg 02/27/24 22:00 02/27/24 21:55
Atorvastatin (Lipitor) 40 Mg Tablet PO 03/26/24 21:59 40 mg
HS IZABLE Administration
Baclofen 5 mg 02/27/24 22:00 02/27/24 21:56
Baclofen 5 Mg Tablet PO 03/26/24 21:59 5 mg
TID IZABEL Administration
Famotidine 40 mg 02/27/24 22:00 02/27/24 21:55
Famotidine 40 Mg Tablet PO 03/26/24 21:59 40 mg
HS IZABEL Administration
Folic Acid 1 mg 02/28/24 08:00
Folic Acid 1 Mg Tablet PO 03/27/24 07:59
DAILY IZABEL
Guaifenesin 200 mg 02/27/24 20:44
Guaifenesin Oral Solution (200 Mg/10 Ml) Cup PO 03/26/24 20:43
Q4HPRN PRN
cough
Piperacillin Sod/Tazobactam Sod 3.375 gram in 50 mls @ 100 mls/hr 02/27/24 21:00 02/28/24 03:17
Zosyn IV 50 mls
Q6H IZABEL Administration
Dextrose/Sodium Chloride 1,000 mls @ 100 mls/hr 02/27/24 20:44 02/27/24 21:56
D5/0.45%Nacl IV 1,000 mls
.Q10H IZABEL Administration
Levetiracetam 500 mg 02/28/24 08:00
Levetiracetam (100 Mg/Ml) 500 Mg/5 Ml Vial IV 03/27/24 07:59
Q12 IZABEL
Lidocaine 3 patch 02/28/24 08:00
Lidocaine 4% Topical Patch TOPICAL 03/27/24 07:59
DAILY IZABEL
Protocol
Lorazepam 1 mg 02/27/24 20:44
Lorazepam 2 Mg/Ml Vial IV 03/26/24 20:43
Q4HPRN PRN
seizure
Losartan Potassium 50 mg 02/28/24 08:00
Losartan 50 Mg Tablet PO 03/27/24 07:59
DAILY IZABEL
Oxycodone HCl 5 mg 02/27/24 20:44 02/28/24 05:35
Oxycodone 5 Mg Regular Release Tablet PO 03/12/24 20:43 Not Given
Q8H IZABEL
Pancrelipase 2 capsule 02/28/24 08:00
Pancrelipase (Zenpep) Delayed Release Capsule PO 03/27/24 07:59
MEALS IZABEL
Pancrelipase 1 capsule 02/28/24 18:00
Pancrelipase (Zenpep) Delayed Release Capsule PO 03/27/24 17:59
QPM IZABEL
Pantoprazole Sodium 40 mg 02/28/24 08:00
Pantoprazole 40 Mg Delayed Release Tablet PO 03/27/24 07:59
DAILY IZABEL
Patch Removal 0 patch 02/28/24 20:00
Remove Lidocaine Patch REMOVE 03/27/24 19:59
DAILY@2000 IZABEL
Polyethylene Glycol 17 grams 02/27/24 20:44 02/27/24 21:55
Polyethylene Glycol Powder 17 Grams Packet PO 03/26/24 20:43 17 grams
BID IZABEL Administration
Primidone 250 mg 02/27/24 22:00 02/27/24 21:57
Primidone 250 Mg Tablet PO 03/26/24 21:59 250 mg
HS IZABEL Administration
Ropinirole HCl 0.5 mg 02/27/24 22:00 02/27/24 21:56
Ropinirole 0.25 Mg Tablet PO 03/26/24 21:59 0.5 mg
QID IZABEL Administration
Sennosides 17.2 mg 02/27/24 21:00 02/27/24 21:55
Sennosides (Senokot) 8.6 Mg Tablet PO 03/26/24 20:59 17.2 mg
Q12H IZABEL Administration
Sodium Chloride 0 flush 02/27/24 21:00
Sodium Chloride 0.9% (Flush) Syringe IV 03/26/24 20:59
PER PROTOCOL IZABEL
Sodium Chloride 0.5 ml 02/27/24 20:55
Nss (Pf) 10 Ml Vial For Ativan 1 Mg Dose IV 03/26/24 20:54
Q4HPRN PRN
IV LORAZEPAM DILUTION
Thiamine HCl 100 mg 02/27/24 20:44 02/27/24 21:55
Thiamine 100 Mg Tablet PO 03/26/24 20:43 100 mg
BID IZABEL Administration
Tiotropium [place] 2 puff 02/28/24 08:00 02/28/24 07:29
Tiotropium (Spiriva Respimat) 2.5 Mcg Inhaler INH 03/27/24 07:59 2 puff
R DAILY IZABEL Administration
Protocol
Topiramate 25 mg 02/28/24 08:00
Topiramate 25 Mg Tablet PO 03/27/24 07:59
DAILY IZABEL
Home Medications
-
Home Medications
folic acid 1 mg tablet 1 mg PO DAILY Supplement 12/31/20
famotidine 40 mg tablet 40 mg PO HS Gastrointestinal issue 06/19/21
thiamine HCl (vitamin B1) 100 mg tablet 100 mg PO BID Supplement 06/19/21
dicyclomine 10 mg capsule 10 mg PO DAILYPRN PRN loose stools 08/19/21
primidone 250 mg tablet 250 mg PO HS tremors 11/23/21
necjhx-ixecabvs-idlmlgm 36,000-114,000-180,000 unit capsule,delay rel (Creon) 1 cap PO QPM 03/06/22
chvaoc-jntmfdfx-rljqtvc 36,000-114,000-180,000 unit capsule,delay rel (Creon) 2 cap PO MEALS Gastrointestinal issue 03/06/22
acetaminophen 325 mg tablet (Tylenol) 650 mg PO Q4HPRN PRN mild pain/temp>100 05/26/22
bisacodyl 10 mg rectal suppository (Dulcolax (bisacodyl)) 10 mg PA DAILYPRN PRN if no bm in 24hrs after MOM 05/26/22
magnesium hydroxide 400 mg/5 mL oral suspension (Milk of Magnesia) 2,400 mg PO DAILYPRN PRN if no bm after 3 days 05/26/22
sennosides 8.6 mg tablet (senna) 17.2 mg PO Q12H Constipation 05/26/22
sodium phosphates 19 gram-7 gram/118 mL enema (Fleet Enema) 118 ml PA DAILYPRN PRN if no bm in 24hrs after bisacodyl 05/26/22
albuterol sulfate 2.5 mg/3 mL (0.083 %) solution for nebulization 2.5 mg inhalation R Q8 Lung/Breathing Issues 02/22/24
albuterol sulfate 90 mcg/actuation aerosol inhaler 2 puff inhalation R Q4HPRN PRN sob/wheezing 02/22/24
alendronate 70 mg tablet 70 mg PO FR OSTEOPOROSIS 02/22/24
amlodipine 10 mg tablet 10 mg PO DAILY Blood Pressure 02/22/24
apixaban 5 mg tablet (Eliquis) 5 mg PO BID Blood Clot Prevention/Tx 02/22/24
atorvastatin 40 mg tablet 40 mg PO HS High Cholesterol 02/22/24
baclofen 5 mg tablet 5 mg PO TID Pain 02/22/24
calcium carbonate 600 mg PO BID Supplement 02/22/24
diphenhydramine HCl 2 % topical gel (Benadryl) 1 applic topical Q6HPRN PRN itching/rash 02/22/24
docusate sodium 100 mg capsule 200 mg PO DAILY Constipation 02/22/24
ergocalciferol (vitamin D2) 1,250 mcg (50,000 unit) capsule 1,250 mcg PO MO Supplement 02/22/24
estradiol 10 mcg vaginal tablet (Vagifem) 10 mcg vaginal WESA@2200 02/22/24
ferrous sulfate 325 mg (65 mg iron) tablet 325 mg PO DAILY Supplement 02/22/24
fluticasone propionate 50 mcg/actuation nasal spray,suspension 2 spray intranasal BID Allergies 02/22/24
guaifenesin 100 mg/5 mL oral liquid 200 mg PO Q4HPRN PRN cough 02/22/24
guaifenesin 600 mg tablet, extended release 12 hr (Mucinex) 600 mg PO Q12H 02/22/24
hydrocortisone 1 % topical cream 1 applic topical Q6HPRN PRN itching 02/22/24
lidocaine 5 % topical ointment 1 applic topical TID left hip pain 02/22/24
loratadine 10 mg tablet 10 mg PO DAILY Allergies 02/22/24
losartan 50 mg tablet 50 mg PO DAILY Blood Pressure 02/22/24
menthol 5 % topical patch (Icy Hot (menthol)) 1 patch topical DAILY left deltoid 02/22/24
menthol 5 % topical patch (Icy Hot (menthol)) 1 patch topical DAILY left knee 02/22/24
menthol 5 % topical patch (Icy Hot (menthol)) 1 patch topical DAILY left thigh 02/22/24
ondansetron HCl 4 mg tablet 4 mg PO Q8HPRN PRN nausea/vomiting 02/22/24
pantoprazole 40 mg tablet,delayed release 40 mg PO DAILY Gastrointestinal Issue 02/22/24
polyethylene glycol 3350 17 gram oral powder packet 17 g PO BID Constipation 02/22/24
ropinirole 0.5 mg tablet 0.5 mg PO QID 02/22/24
sodium chloride 1,000 mg soluble tablet 1,000 mg PO DAILY 02/22/24
tamsulosin 0.4 mg capsule 0.4 mg PO DAILY Urinary Issue 02/22/24
tiotropium bromide 2.5 mcg/actuation mist for inhalation 2 puff inhalation R DAILY Lung/Breathing Issues 02/22/24
topiramate 25 mg tablet (Topamax) 25 mg PO DAILY Neurological Condition 02/22/24
hjzmcsgyoy-nltyoywuejxar-ramxdcue 50 mg-300 mg-40 mg capsule (Fioricet) 2 cap PO Q8HPRN PRN headache #20 caps 02/24/24
oxycodone 5 mg tablet 5 mg PO Q8H #20 tabs 02/24/24
amoxicillin 875 mg-potassium clavulanate 125 mg tablet 1 tab PO BID Infection 02/28/24
[2024-02-28] MEDS: D5/0.45%NACL 1000 IV ×2 (09:20→23:44)
[2024-02-28] MEDS: LIDOCAINE 4% PATCH 3 PATCH TOPICAL (09:21)
[2024-02-28] MEDS: MIRALAX 17 GRAMS PO (09:21)
[2024-02-28] MEDS: KEPPRA 500 MG IV ×2 (09:21→21:01)
[2024-02-28] MEDS: NORVASC 10 MG PO (09:22)
[2024-02-28] MEDS: REQUIP 0.5 MG PO ×2 (09:22→21:05)
[2024-02-28] MEDS: LIORESAL 5 MG PO ×2 (09:23→21:05)
[2024-02-28] MEDS: VITAMIN B1 100 MG PO ×2 (09:23→21:06)
[2024-02-28] MEDS: TOPAMAX 25 MG PO (09:23)
[2024-02-28] MEDS: ZENPEP DELAYED RELEASE CAPSULE 2 CAPSULE PO (09:23)
[2024-02-28] MEDS: COZAAR 50 MG PO (09:24)
[2024-02-28] MEDS: FOLVITE 1 MG PO (09:24)
[2024-02-28] MEDS: ELIQUIS 5 MG PO ×2 (09:24→21:01)
[2024-02-28] MEDS: SENOKOT 17.2 MG PO (09:24)
[2024-02-28] MEDS: PROTONIX 40 MG PO (09:24)
--- NOTE | 2024-02-28 10:09 | EEG.RPT ---
Electroencephalogram Report
Recording
Date of EE02/28/24
Type of EEG: Routine
Length of EEG recordin mins
Done with Video Recording: Yes
Patient Status: Inpatient
Recording Conditions: Awake
Hyperventilation Performed: No
Photic Stimulation Performed: Yes
Report
METHODS
A 21 channel digitized electroencephalogram was performed at [facility]. The 10/20 international system of electrode placement was used. In addition to EEG, the patient was monitored for EKG. The duration of the recording was 26 minutes.
BACKGROUND
During the awake state, with the eyes closed, the background consisted of a normal amplitude, 11 Hertz posterior reactive rhythm that attenuated appropriately with eye opening. This recording was severely limited by severe muscle/chewing artifact.
PHOTIC STIMULATION
Photic stimulation using a step-irizarry increase in photic frequency varying from 1-31 Hertz resulted in no driving responses but no appearance of abnormal activity.
CLINICAL EVENTS
None
INTERPRETATION AND CLINICAL CORRELATION
This recording was severely limited by severe muscle/chewing artifact, during which time underlying abnormalities cannot be definitively ruled out. However, what was visible beneath this artifact appeared normal.
[2024-02-28 12:27] LABS: Procalcitonin < 0.05 ng/ml (0.0-0.25)
[2024-02-28] MEDS: ZENPEP DELAYED RELEASE CAPSULE PO ×3 (12:53→17:59)
--- NOTE | 2024-02-28 12:56 | CS.PSYCHR ---
Consult Summary - Psychiatry
-
Pt is a 63 yo female admitted from custodial with reported worsening mental status with agitation, refusing medications. Pt was admitted to from 02/21 - 02/24/24 dx with TME due to polypharmacy; buspirone, citalopram, trazodone and pregabalin
were discontinued. Pt appeared to improve and was discharge back to the [facility] on 02/24/24. She noted to be somewhat restless and agitated in the ED. After initial exam, pt was noted to be actively seizing with tonic-clonic movements of the head
and RUE, evident aspiration of oral secretions. Patient was given IV Ativan and a loading dose of Keppra. Psychiatry asked to evaluate for possible psychosis/treatable psychiatric symptoms. Pt noted to be awake but confused. On approach, pt
drowsy, but able to awaken, gave very limited responses. She states she feels 'crappy', endorsed feeling down and 'out of it.' She denies feelings of paranoia, shows no signs of delusions or hallucinations, no agitation.
PMH: seizure- past from alcohol withdrawal; ASCVD/prior CVA with resultant L hemiparesis/neglect, chronic pancreatitis, HTN, peripheral neuropathy, hx of L breast Ca- treated
Psych hx: unspecified depression; recently taken off of Celexa, Buspar, Trazodone. Pt unable to recall how long she was on them
SH: past severe alcohol use; residing in long-term care facility, prior to CVA lived with mother
MSE: drowsy, lying in bed resting calmly, looking toward the right/left neglect. Limited answers as noted above. No agitation at present. Affect and mood dysphoric. No signs of psychosis
Imp: TME- etiology unclear- likely combination of polypharmacy, post- seizure; not due to psychotropic medications, which were stopped during previous admission
Unspecified depression, status unclear after psych meds were stopped during previous admission last week
hx of severe alcohol use
Rec: Would continue to manage with Ativan on prn basis for any recurrent agitation. Do not see any acute indication for psychotropic medication; would hold off adding anything due to pt's mental status, seizure upon admission, and concerns about
polypharmacy
Psychiatry will follow
--- NOTE | 2024-02-28 13:36 | PTCARENOTE ---
Pt drowsy/lethargic at this time. PO medications held d/t mental status. Dr. Cruz aware.
--- NOTE | 2024-02-28 14:10 | CM ---
Reviewed the chart notes and spoke with the patient at the bedside. CM spoke with Mar the systems coordinator at [facility]. Patient was recently discharged back to [place] on 02/23. Patient has a bed hold in place. Patient has been a
resident since 10/2022. The patient is total care and is wheelchair bound. CM continues to be available to patient/family and is monitoring medical plan for needs at discharge.
Plan: Discharge back to [facility] when medically stable.
[2024-02-28] MEDS: REQUIP PO ×2 (14:19→18:11)
--- NOTE | 2024-02-28 16:13 | SUR.PHASEI ---
Pt to Abd US via stretcher.
[2024-02-28 16:31] LABS: Creatine Phosphokinase 134 U/L (30-135); Magnesium 1.8 mg/dl (1.6-2.3); Phosphorus 2.7 mg/dl (2.5-4.5)
--- NOTE | 2024-02-28 16:50 | W.PN.HOSP.TC ---
Today's Communication/Plan
-
Seizure precautions.
Adjustment of complicated medication regimen.
Assessment / Plan
Assessment / Plan
Impression:
Probably reasonable seizure
Encephalopathy multifactorial toxic and vascular.
Metabolic acidosis with increased anion gap.
Aspiration pneumonia with right lower lobe
Other conditions:
Recent hospitalization (02/21 - 03/03) with toxic metabolic encephalopathy due to polypharmacy and in the settings of acute kidney injury.
Seizure disorder by history.
Chronic right MCA infarct with left hemiparesis. (Cryptogenic with no documented history of arrhythmia)
History of polysubstance and alcohol abuse.
Opiate dependency.
Chronic pancreatitis with chronic pancreatic insufficiency on enzymes.
History of splenic vein thrombosis on anticoagulation with Eliquis.
CAD by history
Essential hypertension.
Tobacco use disorder.
Anxiety/depression.
History of breast carcinoma
Plan:
Reported behavioral disturbances at the nursing facility, refusal of medications
Had tonicoclonic seizure while in the ED
Suspected withdrawal seizure.
EEG with no recorded epileptic activity
Given Ativan
Initiated on Keppra.
Additional evaluation with MRI of the brain is reasonable given prior history of malignancy.
Neurology/psychiatry evaluation baseline remains concern for polypharmacy.
Recently taken off buspirone, citalopram, pregabalin, trazodone.
Discontinue Fioricet given patient is on primidone.
Initiated on Keppra
Continue primidone.
Continue Topamax.
Continue Requip.
Continue IV Ativan with attempt to wean off if no recurrent seizure activity
Acute metabolic acidosis
Noted over the last hospitalization thought to be in the settings of NAVDEEP improved with IV fluid bolus
? Topamax could contribute at the current dose.
Also could be in the settings of acute tonic-clonic activity
Monitor
May require IV fluids
Ongoing treatment for right lower lobe pneumonia thought to be an aspiration given recent TME.
Follow-up chest x-ray 02/26 with mild subsegmental atelectasis and scarring in both lower lungs which has decreased and improved since 02/21
Narrow antibiotics to Unasyn.
Monitor respiratory status closely
If stable would consider to discontinue antibiotics after 7 days of treatment. 02/21 - 02/28
Opiate dependence
History of polysubstance abuse
Continue oxycodone monitoring for oversedation
Stop Fioricet since patient is on primidone
Chronic pancreatitis.
History of splenic vein thrombosis
Repeat ultrasound of the abdomen with Doppler
Patient is on anticoagulation with Eliquis
Chronic right MCA infarct thought to be cryptogenic
Currently no documented history of arrhythmia.
Medical records requested.
Continue supportive care
Anticipated Discharge: > 48 hours
Subjective/Interval History
-
Date of Service: February 28, 2024
Objective Data
-
Labs:
Laboratory Results
02/28/24 02/28/24
05:22 05:23
WBC 11.9 H
Hgb 14.2
Hct 41.0
Plt Count 189
Sodium 145
Potassium 3.9
Chloride 113 H
Carbon Dioxide 17 L
BUN 20 H
Creatinine 0.6
Glucose 162 H
Calcium 8.8 D
Total Bilirubin 0.5
AST 43 H
ALT 31
Alkaline Phosphatase 84
Vital Signs:
Vital Signs
Temp Pulse Resp BP Pulse Ox
98.0 F 77 19 149/69 97
02/28/24 16:11 02/28/24 15:21 02/28/24 15:21 02/28/24 12:00 02/28/24 15:21
I&O
02/27/24 02/28/24 02/29/24
06:59 06:59 06:59
Intake Total 990 / 990
Output Total 300 / 300
Balance 690 / 690
Physical Exam
-
General: Well Developed and No Apparent Distress
HEENT: Normocephalic, Atraumatic and Moist Mucous Membranes
Respiratory: Clear to Auscultation
Cardiac: Regular Rhythm and S1/S2; Negative Murmur, Rub or Gallop
GI: Soft, Nontender, Nondistended and Normal Bowel Sounds; Negative Organomegaly
Rectal: Deferred by Provider
Musculoskeletal: No Clubbing, No Cyanosis and No Edema
Skin: Negative Rash
Neuro: Awake, Alert, Oriented and Other (Left hemiparesis)
[2024-02-28] MEDS: ZOSYN IV (17:09)
[2024-02-28] MEDS: UNASYN IV ×2 (18:11→23:44)
[2024-02-28] MEDS: LIORESAL PO (18:11)
[2024-02-28] MEDS: ROXICODONE 5 MG PO (21:01)
[2024-02-28] MEDS: MYSOLINE 250 MG PO (21:05)
[2024-02-28] MEDS: PEPCID 40 MG PO (21:05)
[2024-02-28] MEDS: LIPITOR 40 MG PO (21:09)
[2024-02-28] MEDS: D5/0.45%NACL IV (21:17)
[2024-02-28] MEDS: MIRALAX PO (21:37)
[2024-02-28] MEDS: SENOKOT PO (22:50)
--- NOTE | 2024-02-28 22:54 | VATNOTE ---
CALLED TO ASSESS RUE ML. DRSG COMPLETELY SATURATAED. DRSG REMOVED. ML FLUSHED AND GROSS LEAKING NOTED FROM INSERTION SITE. ML REMOVED AND IV SITE ESTABLISHED IN LUE DOCUMENTED. PROVIDER TO DETERMINE COURSE OF ACTION FOR CONTINUED IV ACCESS IN AM
PT HAS A PREVIOUS HX OF L SIDED CVA RESIDUAL CONTRACTURE AND RUE HAS REMAINS OF GROSSLY INFILTRATED IV SITE BELOW ML SITE. PCN AWARE OF INTERVENTION AND OUTCOME.
[2024-02-29] VITALS (12 sets, daily range): BP systolic 126–194; BP diastolic 61–106; BMI 27.2
--- NOTE | 2024-02-29 01:53 | PTCARENOTE ---
Addendum entered by Gloria Gallegos RN 02/29/24 01:58:
no seizure activity at this time. Pt having blankets around bed, seizure pads not found.
Original Note:
Pt was cooperative with most of nigh time medications when focusing on wanted to help her not be in pain and stay safe. RN showed davis vesna being opened and all medications opened bed side in view. Emotional support given Education given. Pt
allowing swabs for teeth. Pt mid line leaking, VAT called (see note). Pt occasionally taking off telemetry stickers. Assessment care and vitals as charted.
[2024-02-29] MEDS: ROXICODONE 5 MG PO ×3 (03:53→21:53)
[2024-02-29] MEDS: UNASYN IV (05:01)
[2024-02-29 05:45] LABS: % Basophils 0.8 % (0-2); % Eosinophils 1.2 % (0-6); % Immature Granulocytes 0.4 % (0-0.5); % Lymphocytes 16.3 % (20.5-51.1); % Monocytes 7.9 % (1.7-9.3); % Neutrophils 73.4 % (42.2-75.2); Absolute Basophils 0.1 10^3/uL (0-0.2); Absolute Eosinophils 0.1 10^3/uL (0-0.7); Absolute Lymphocytes 1.5 10^3/uL (1.2-3.4); Absolute Monocytes 0.7 10^3/uL (0.1-0.6); Absolute Neutrophils 6.8 10^3/uL (1.4-6.5); Hematocrit 38.7 % (37.0-47.0); Hemoglobin 13.7 g/dL (12.0-16.0); Mean Corp Hgb Conc. 35.4 g/dL (33.0-37.0); Mean Corpuscular Hgb 30.6 pg (27.0-31.0); Mean Corpuscular Volume 86.4 fL (81.0-99.0); Nucleated Red Blood Cells % 0 %; Platelet Count 188 10^3/uL (130-400); Red Blood Cell Count 4.48 10^6/uL (4.20-5.40); Red Cell Dist. Width 13.5 % (11.5-14.5); White Blood Cell Count 9.3 10^3/uL (4.8-10.8)
[2024-02-29 05:58] LABS: Blood Urea Nitrogen 11 mg/dl (7-17); Calcium 8.7 mg/dl (8.4-10.2); Carbon Dioxide 20 mmol/L (22-30); Chloride 111 mmol/L (98-107); Estimated Creatinine Clearance 89 ml/min; Glucose 158 mg/dl (70-99); Potassium 3.2 mmol/L (3.5-5.1); Sodium 142 mmol/L (135-145); eGFR > 60.00
[2024-02-29] MEDS: VENTOLIN NEBULES 2.5 MG INH ×3 (07:17→23:37)
[2024-02-29] MEDS: SPIRIVA RESPIMAT 2.5 MCG 2 PUFF INH (07:17)
[2024-02-29] MEDS: COZAAR PO ×2 (09:17→09:40)
[2024-02-29] MEDS: TOPAMAX PO ×2 (09:17→09:41)
[2024-02-29] MEDS: ELIQUIS PO ×2 (09:17→09:40)
[2024-02-29] MEDS: NORVASC PO ×2 (09:17→09:41)
[2024-02-29] MEDS: KEPPRA 500 MG IV ×2 (09:18→21:53)
[2024-02-29] MEDS: LIDOCAINE 4% PATCH 3 PATCH TOPICAL (09:18)
[2024-02-29] MEDS: FOLVITE PO (09:40)
[2024-02-29] MEDS: LIORESAL PO ×2 (09:40→18:03)
[2024-02-29] MEDS: MIRALAX PO ×2 (09:41→22:05)
[2024-02-29] MEDS: REQUIP PO ×2 (09:41→18:03)
[2024-02-29] MEDS: VITAMIN B1 PO ×2 (09:41→22:05)
[2024-02-29] MEDS: ZENPEP DELAYED RELEASE CAPSULE PO ×2 (09:41→18:03)
[2024-02-29] MEDS: PROTONIX PO (09:41)
[2024-02-29] MEDS: SENOKOT PO ×2 (09:42→22:05)
--- NOTE | 2024-02-29 09:48 | PTCARENOTE ---
Addendum entered by Fauzia Calderon 02/29/24 11:16:
Dr. Cruz at bedside; convinced pt to take meds. Attempted to administer stat potassium elixir, pt refused. Dr. Cruz aware.
Original Note:
Pt refusing all PO medications. Multiple attempts made to educate pt on importance of medication compliance. Pt finally agreeable to take BP and Seizure meds. Pt asking for them to be crushed in applesauce. Medications crushed and attempted to
administer, pt then refused. Multiple attempts made to convince pt to take her meds- pt becoming agitated and yelling 'get the F* away from me!'. MAR updated, Dr. Cruz notified of med refusal and elevated BP via TT.
--- NOTE | 2024-02-29 09:59 | W.PN.NEURO.1 ---
Today's Communication / Plan
-
.
Subjective/Objective
Subjective Data
Date of Service: February 29, 2024
Neurology consultation note
Ms. Borden reports no new complaints. She states that she was diagnosed with A-fib many years ago. BAsed on EMR she has been refusing Baclofen, Amlodipine, Thiamine, Pancrelipase, Topamax,
No reported or documented seizures overnight. The patient has been afebrile. and hypertensive up to 167/. She has been in sinus rhythm since the admission.
Brain MRI and outside medical records are pending.
Routine EEG(02/29/2024) recording was severely limited by severe muscle/chewing artifact, during which time underlying abnormalities cannot be definitively ruled out. However, what was visible beneath this artifact appeared normal.
PMH:L breast cancer(s/p chemo), R MCA stroke, chronic pancreatitis, chronic opioid therapy, migraine ECHAVARRIA, COPD, chronic Splenic Vein Thrombosis, polysubstance addiction, withdrawal seizure, INGRID, MDD, lumbar DJD,
PSH: L lumpectomy, cholecystectomy
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
FH:father-CAD, abdominal aneurysm, COPD
All:diflunisal, sumatriptan
ROS: Limited due to cooperation, positive for abdominal pain
General: Well developed. In no acute distress.
Cardio: Regular rate and rhythm without murmur. Extremities are without cyanosis or edema.
Neuro:
Mental Status: Alert, oriented to name, age, month, years. Mild L hemineglect. Poor attention. Able to repeat, nods appropriately and follows requests consistently.
Cranial Nerves: Pupils are equally round and reactive to light. EOMs full. Left hemianopsia, no ptosis. No nystagmus. V1-V3 intact to light touch and pinprick bilaterally, symmetric. Face symmetric. Normal hearing AU. The palate elevated
well. SCMs and traps 5/5. Tongue midline. Edentulous dysarthria.
Motor: left hemiplegia
Coordination: No tremors, clonic movements
Gait: deferred
Assessment and Plan:
I. Probable withdrawal seizure
II. Chronic right MCA territory infarct. Reporte Montserrat A-Franchesca A-Fib
III. Vascular encephalopathy, stable
IV. H/o migraine
V. History of polysubstance addiction and mood DO, NOS
. H/o RLS
-Seizure precautions
-Brain MRI without gadolinium in view of malignancy history
-Wean off Topamax(25 mg every other day)
-LDL goal<100
-will check Fe panel
-Wean off Keppra and Fioricet as OP
-Psychiatry follow up
-Please obtain medical records from [facility] to clarify indications for primidone in view of known interaction with Eliquis.
I personally reviewed all radiology and labs along with past medical records pertinent to current medical problems. Total time spent in patient care is 50 minutes.
Thank you for allowing us to participate in the care of this patient. We will continue to follow. Please do not hesitate to contact us with any questions or concerns.
Objective Data
Vital Signs
Temp Pulse Resp BP Pulse Ox
36.8 C 77 16 144/61 98
02/29/24 07:00 02/29/24 07:20 02/29/24 07:20 02/29/24 06:00 02/29/24 07:20
Lab Results
02/29/24 05:33
02/29/24 05:33
Sodium 142 mmol/L (135-145) 02/29/24 05:33
Potassium 3.2 mmol/L (3.5-5.1) L 02/29/24 05:33
BUN 11 mg/dl (7-17) 02/29/24 05:33
Glucose 158 mg/dl (70-99) H 02/29/24 05:33
Calcium 8.7 mg/dl (8.4-10.2) 02/29/24 05:33
Phosphorus 2.7 mg/dl (2.5-4.5) 02/28/24 16:01
Ur Buprenorphine Negative (Negative) 02/27/24 14:28
Patient Allergies
adhesive Allergy (Verified 02/27/24 14:03)
Rash
diflunisal Allergy (Verified 02/27/24 14:03)
Unknown
silicone Allergy (Verified 02/27/24 14:03)
Unknown
sumatriptan Allergy (Verified 02/27/24 14:03)
Unknown
[2024-02-29 13:35] LABS: Iron 57 ug/dl (37-170)
[2024-02-29] MEDS: ZENPEP DELAYED RELEASE CAPSULE 2 CAPSULE PO (13:41)
[2024-02-29] MEDS: REQUIP 0.5 MG PO ×2 (13:41→21:53)
[2024-02-29 13:44] LABS: Percent Saturation 34 % (20-50); Total Iron Binding Capacity 163 ug/dl (265-497)
--- NOTE | 2024-02-29 14:13 | PTCARENOTE ---
Pt's mother at bedside, pleaded with pt to take afternoon meds. Pt agreeable to take afternoon meds; still refusing potassium elixir.
--- NOTE | 2024-02-29 15:45 | W.PN.UPDATE ---
Update Note
Progress Note Update
patient seen chart reviewed. discussed w nursing and with dr vu. she is admitted with change in mental status. it is my understanding that a number of sedating medications have been discontinued and she is more awake and alert although not
talkative. she was not sedated when i saw her but she would not answer any questions with words although once in a while she did shake her head yes or no. i asked her her name, whether she was in pain, what she was watching on tv, had she had enough
to eat etc. nursing reports she can be almost agitated at times but they generally are able to get her to ooperative without incident. she resides in a local nursing facility and can return to [facility]. . she is on no psych meds currently
unless you consider ropinirole psych. psych will sign off. please call us if you want us to return.
[2024-02-29] MEDS: ZENPEP DELAYED RELEASE CAPSULE 1 CAPSULE PO (17:51)
--- NOTE | 2024-02-29 18:03 | PTCARENOTE ---
Pt agreeable to take evening meds. Contents of one zenpep capsule administered in applesauce; pt then refused to take other medications.
--- NOTE | 2024-02-29 18:28 | W.PN.HOSP.TC ---
Today's Communication/Plan
-
Adjust medication regimen as per neurology.
PT evaluation.
Monitor for recurrent seizure.
Assessment / Plan
Assessment / Plan
Impression:
Probably reasonable seizure
Encephalopathy multifactorial toxic and vascular.
Metabolic acidosis with increased anion gap.
Aspiration pneumonia with right lower lobe
Other conditions:
Recent hospitalization (02/21 - 03/03) with toxic metabolic encephalopathy due to polypharmacy and in the settings of acute kidney injury.
Seizure disorder by history.
Chronic right MCA infarct with left hemiparesis. (Cryptogenic with no documented history of arrhythmia)
History of polysubstance and alcohol abuse.
Opiate dependency.
Chronic pancreatitis with chronic pancreatic insufficiency on enzymes.
History of splenic vein thrombosis on anticoagulation with Eliquis.
CAD by history
Essential hypertension.
Tobacco use disorder.
Anxiety/depression.
History of breast carcinoma
Plan:
Reported behavioral disturbances at the nursing facility, refusal of medications
Had tonicoclonic seizure while in the ED
Suspected withdrawal seizure.
EEG with no recorded epileptic activity
MRI of the brain with old CVA and no acute abnormalities
Given Ativan
Initiated on Keppra.
Additional evaluation with MRI of the brain is reasonable given prior history of malignancy.
Neurology/psychiatry evaluation baseline remains concern for polypharmacy.
Recently taken off buspirone, citalopram, pregabalin, trazodone.
Discontinue Fioricet given patient is on primidone.
Initiated on Keppra with plan to wean as outpatient
Continue primidone.
Wean Topamax as per neurology
Continue Requip.
Continue IV Ativan with attempt to wean off if no recurrent seizure activity
Acute metabolic acidosis
Noted over the last hospitalization thought to be in the settings of NAVDEEP improved with IV fluid bolus
? Topamax could contribute at the current dose.
Also could be in the settings of acute tonic-clonic activity
Monitor
May require IV fluids
Ongoing treatment for right lower lobe pneumonia thought to be an aspiration given recent TME.
Follow-up chest x-ray 02/26 with mild subsegmental atelectasis and scarring in both lower lungs which has decreased and improved since 02/21
Narrow antibiotics to Unasyn.
Monitor respiratory status closely
If stable would consider to discontinue antibiotics after 7 days of treatment. 02/21 - 02/28
Opiate dependence
History of polysubstance abuse
Continue oxycodone monitoring for oversedation
Stop Fioricet since patient is on primidone
Chronic pancreatitis.
History of splenic vein thrombosis
Repeat ultrasound of the abdomen with Doppler findings consistent with hepatic steatosis and no vascular abnormalities
Patient is on anticoagulation with Eliquis
Chronic right MCA infarct thought to be cryptogenic
Currently no documented history of arrhythmia.
Medical records requested.
Continue supportive care
Anticipated Discharge: 24 - 48 hours
Subjective/Interval History
-
Date of Service: February 29, 2024
Objective Data
-
Vital Signs:
Vital Signs
Temp Pulse Resp BP Pulse Ox
98.3 F 99 19 159/90 94
02/29/24 15:00 02/29/24 18:00 02/29/24 18:00 02/29/24 18:00 02/29/24 11:47
I&O
02/28/24 02/29/24 03/01/24
06:59 06:59 06:59
Intake Total 990 / 990 1320 / 1320
Output Total 300 / 300 150 / 150 400 / 400
Balance 690 / 690 1170 / 1170 -400 / -400
Physical Exam
-
General: Well Developed and No Apparent Distress
HEENT: Normocephalic, Atraumatic and Moist Mucous Membranes
Respiratory: Clear to Auscultation
Cardiac: Regular Rhythm and S1/S2; Negative Murmur, Rub or Gallop
GI: Soft, Nontender, Nondistended and Normal Bowel Sounds; Negative Organomegaly
Rectal: Deferred by Provider
Musculoskeletal: No Clubbing, No Cyanosis and No Edema
Skin: Negative Rash
Neuro: Awake, Alert, Oriented and Other (Left hemiparesis)
[2024-02-29] MEDS: ELIQUIS 5 MG PO (21:53)
[2024-02-29] MEDS: LIORESAL 5 MG PO (21:53)
[2024-02-29] MEDS: PEPCID PO (23:28)
[2024-02-29] MEDS: MYSOLINE PO (23:28)
[2024-02-29] MEDS: LIPITOR PO (23:28)
[2024-03-01] VITALS (15 sets, daily range): BP systolic 136–177; BP diastolic 66–98; PULSE 94–96; O2SAT 96–97; BMI 26.8
--- NOTE | 2024-03-01 03:19 | PTCARENOTE ---
Pt willing to take some of HS medications after emotional support and time. Pt using her voice 2-3 times, saying yes and no and when she is cold. No seizure activity witnesses. Call dooley with in reach. bed alarm on. Assessment care and vitals as
charted.
[2024-03-01] MEDS: ROXICODONE 5 MG PO ×3 (04:59→20:11)
[2024-03-01 05:32] LABS: Blood Urea Nitrogen 9 mg/dl (7-17); Calcium 8.8 mg/dl (8.4-10.2); Carbon Dioxide 18 mmol/L (22-30); Chloride 111 mmol/L (98-107); Estimated Creatinine Clearance 88 ml/min; Glucose 98 mg/dl (70-99); Potassium 3.2 mmol/L (3.5-5.1); Sodium 143 mmol/L (135-145); eGFR > 60.00
[2024-03-01] MEDS: SPIRIVA RESPIMAT 2.5 MCG 2 PUFF INH (07:28)
[2024-03-01] MEDS: VENTOLIN NEBULES 2.5 MG INH ×3 (07:29→23:28)
[2024-03-01] MEDS: MIRALAX 17 GRAMS PO ×2 (08:14→20:11)
[2024-03-01] MEDS: LIDOCAINE 4% PATCH 3 PATCH TOPICAL (08:14)
[2024-03-01] MEDS: FOLVITE 1 MG PO (08:14)
[2024-03-01] MEDS: ZENPEP DELAYED RELEASE CAPSULE 2 CAPSULE PO ×3 (08:15→17:37)
[2024-03-01] MEDS: LIORESAL 5 MG PO ×3 (08:15→20:11)
[2024-03-01] MEDS: COZAAR 50 MG PO (08:17)
[2024-03-01] MEDS: REQUIP 0.5 MG PO ×4 (08:17→20:10)
[2024-03-01] MEDS: VITAMIN B1 100 MG PO ×2 (08:17→20:10)
[2024-03-01] MEDS: NORVASC 10 MG PO (08:18)
[2024-03-01] MEDS: PROTONIX 40 MG PO (08:18)
[2024-03-01] MEDS: ELIQUIS 5 MG PO ×2 (08:18→20:10)
[2024-03-01] MEDS: KEPPRA 500 MG IV (08:18)
[2024-03-01] MEDS: TOPAMAX 25 MG PO (08:18)
[2024-03-01] MEDS: SENOKOT 17.2 MG PO ×2 (09:19→20:11)
--- NOTE | 2024-03-01 10:19 | W.PN.NEURO.1 ---
Today's Communication / Plan
-
.
Subjective/Objective
Subjective Data
Date of Service: March 01, 2024
Neurology follow up note
Ms. Borden reports no new complaints.
24h events: refused Primidone
Brain MRI showed chronic cortical R MCA and bilateral caudate heads and the left thalamic infarcts.
Routine EEG(02/29/2024) recording was severely limited by severe muscle/chewing artifact, during which time underlying abnormalities cannot be definitively ruled out. However, what was visible beneath this artifact appeared normal.
PMH:L breast cancer(s/p chemo), R MCA stroke, chronic pancreatitis, chronic opioid therapy, migraine ECHAVARRIA, COPD, h/o Splenic Vein Thrombosis, polysubstance addiction, withdrawal seizure, INGRID, MDD, lumbar DJD,
PSH: L lumpectomy, cholecystectomy
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
FH:father-CAD, abdominal aneurysm, COPD
All:diflunisal, sumatriptan
ROS: Limited due to cooperation, positive for abdominal pain
General: Well developed. In no acute distress.
Cardio: Regular rate and rhythm without murmur. Extremities are without cyanosis or edema.
Neuro:
Mental Status: Alert, oriented to name, age, month, years. Mild L hemineglect. Poor attention. Able to repeat, nods appropriately and follows requests consistently.
Cranial Nerves: Pupils are equally round and reactive to light. EOMs full. Left hemianopsia, no ptosis. No nystagmus. V1-V3 intact to light touch and pinprick bilaterally, symmetric. Face symmetric. Normal hearing AU. The palate elevated
well. SCMs and traps 5/5. Tongue midline. Edentulous dysarthria.
Motor: left hemiplegia
Coordination: No tremors, clonic movements
Gait: deferred
Assessment and Plan:
I. Probable provoked seizure. High risk of recurrent seizures. Limited EEG data
II. Chronic right MCA territory infarct. Reported A-Franchesca A-Fib
III. Vascular encephalopathy, stable
IV. H/o migraine
V. History of polysubstance addiction and mood DO, NOS
. H/o RLS
-Seizure precautions
-Wean off Topamax(25 mg every other day)
-LDL goal<100
[facility] rescue [facility]. Avoid opioids
-Wean off Primidone as OP due to interactions with Eliquis. Consider Propranolol or restarting Topamax if tremors reoccur.
-Continue Requip 0.5 mg QD and Thiamine 100 mg QD
-Continue Keppra 500 mg BID with the plan to transition to an alterative AED if not tolerated as OP
-OP neurology follow up in 1-2 weeks
I personally reviewed all radiology and labs along with past medical records pertinent to current medical problems. Total time spent in patient care is 37 minutes.
Thank you for allowing us to participate in the care of this patient. Please do not hesitate to contact us with any questions or concerns.
Objective Data
Vital Signs
Temp Pulse Resp BP Pulse Ox
36.8 C 105 20 159/92 97
03/01/24 07:11 03/01/24 08:18 03/01/24 08:11 03/01/24 08:18 03/01/24 09:38
Lab Results
02/29/24 05:33
03/01/24 04:54
Sodium 143 mmol/L (135-145) 03/01/24 04:54
Potassium 3.2 mmol/L (3.5-5.1) L 03/01/24 04:54
BUN 9 mg/dl (7-17) 03/01/24 04:54
Glucose 98 mg/dl (70-99) 03/01/24 04:54
Calcium 8.8 mg/dl (8.4-10.2) 03/01/24 04:54
Phosphorus 2.7 mg/dl (2.5-4.5) 02/28/24 16:01
Ur Buprenorphine Negative (Negative) 02/27/24 14:28
Patient Allergies
adhesive Allergy (Verified 02/27/24 14:03)
Rash
diflunisal Allergy (Verified 02/27/24 14:03)
Unknown
silicone Allergy (Verified 02/27/24 14:03)
Unknown
sumatriptan Allergy (Verified 02/27/24 14:03)
Unknown
Vital Signs and Labs
-
Vital Signs and Labs:
Vital Signs
Temp Pulse Resp BP Pulse Ox
36.8 C 105 20 159/92 97
03/01/24 07:11 03/01/24 08:18 03/01/24 08:11 03/01/24 08:18 03/01/24 09:38
Lab Results
02/29/24 05:33
03/01/24 04:54
Sodium 143 mmol/L (135-145) 03/01/24 04:54
Potassium 3.2 mmol/L (3.5-5.1) L 03/01/24 04:54
BUN 9 mg/dl (7-17) 03/01/24 04:54
Glucose 98 mg/dl (70-99) 03/01/24 04:54
Calcium 8.8 mg/dl (8.4-10.2) 03/01/24 04:54
Phosphorus 2.7 mg/dl (2.5-4.5) 02/28/24 16:01
Ur Buprenorphine Negative (Negative) 02/27/24 14:28
Medications
-
Medications:
Generic Name Dose Route Start Last Admin
Trade Name Freq PRN Reason Stop Dose Admin
Acetaminophen 650 mg 02/27/24 20:44
Acetaminophen 325 Mg Tablet PO 03/26/24 20:43
Q4HPRN PRN
mild pain/temp>100
Albuterol Sulfate 2.5 mg 02/28/24 00:00 03/01/24 07:29
Albuterol Nebs 2.5 Mg/3 Ml Ampul INH 2.5 mg
R Q8 IAZBEL Administration
Protocol
Amlodipine Besylate 10 mg 02/28/24 08:00 03/01/24 08:18
Amlodipine 10 Mg Tablet PO 03/27/24 07:59 10 mg
DAILY IZABEL Administration
Apixaban 5 mg 02/27/24 20:44 03/01/24 08:18
Apixaban (Eliquis) 5 Mg Tablet PO 03/26/24 20:43 5 mg
BID IZABEL Administration
Atorvastatin Calcium 40 mg 02/27/24 22:00 02/29/24 23:28
Atorvastatin (Lipitor) 40 Mg Tablet PO 03/26/24 21:59 Not Given
HS IZABEL
Baclofen 5 mg 02/27/24 22:00 03/01/24 08:15
Baclofen 5 Mg Tablet PO 03/26/24 21:59 5 mg
TID IZABEL Administration
Famotidine 40 mg 02/27/24 22:00 02/29/24 23:28
Famotidine 40 Mg Tablet PO 03/26/24 21:59 Not Given
HS IZABEL
Folic Acid 1 mg 02/28/24 08:00 03/01/24 08:14
Folic Acid 1 Mg Tablet PO 03/27/24 07:59 1 mg
DAILY IZABEL Administration
Guaifenesin 200 mg 02/27/24 20:44
Guaifenesin Oral Solution (200 Mg/10 Ml) Cup PO 03/26/24 20:43
Q4HPRN PRN
cough
Levetiracetam 500 mg 03/01/24 20:00
Levetiracetam 500 Mg Regular Release Tablet PO 03/29/24 19:59
BID IZABEL
Lidocaine 3 patch 02/28/24 08:00 03/01/24 08:14
Lidocaine 4% Topical Patch TOPICAL 03/27/24 07:59 3 patch
DAILY IZABEL Administration
Protocol
Lorazepam 1 mg 02/27/24 20:44
Lorazepam 2 Mg/Ml Vial IV 03/26/24 20:43
Q4HPRN PRN
seizure
Losartan Potassium 50 mg 02/28/24 08:00 03/01/24 08:17
Losartan 50 Mg Tablet PO 03/27/24 07:59 50 mg
DAILY IZABEL Administration
Oxycodone HCl 5 mg 02/27/24 20:44 03/01/24 04:59
Oxycodone 5 Mg Regular Release Tablet PO 03/12/24 20:43 5 mg
Q8H IZABEL Administration
Pancrelipase 2 capsule 02/28/24 08:00 03/01/24 08:15
Pancrelipase (Zenpep) Delayed Release Capsule PO 03/27/24 07:59 2 capsule
MEALS IZABEL Administration
Pancrelipase 1 capsule 02/28/24 18:00 02/29/24 17:51
Pancrelipase (Zenpep) Delayed Release Capsule PO 03/27/24 17:59 1 capsule
QPM IZABEL Administration
Pantoprazole Sodium 40 mg 02/28/24 08:00 03/01/24 08:18
Pantoprazole 40 Mg Delayed Release Tablet PO 03/27/24 07:59 40 mg
DAILY IZABEL Administration
Patch Removal 0 patch 02/28/24 20:00 02/29/24 22:07
Remove Lidocaine Patch REMOVE 03/27/24 19:59 Not Given
DAILY@2000 IZABEL
Polyethylene Glycol 17 grams 02/27/24 20:44 03/01/24 08:14
Polyethylene Glycol Powder 17 Grams Packet PO 03/26/24 20:43 17 grams
BID IZABEL Administration
Primidone 250 mg 02/27/24 22:00 02/29/24 23:28
Primidone 250 Mg Tablet PO 03/26/24 21:59 Not Given
HS IZABEL
Ropinirole HCl 0.5 mg 02/27/24 22:00 03/01/24 08:17
Ropinirole 0.25 Mg Tablet PO 03/26/24 21:59 0.5 mg
QID IZABEL Administration
Sennosides 17.2 mg 02/27/24 21:00 03/01/24 09:19
Sennosides (Senokot) 8.6 Mg Tablet PO 03/26/24 20:59 17.2 mg
Q12H IZABEL Administration
Sodium Chloride 0 flush 02/27/24 21:00
Sodium Chloride 0.9% (Flush) Syringe IV 03/26/24 20:59
PER PROTOCOL IZABEL
Sodium Chloride 0.5 ml 02/27/24 20:55
Nss (Pf) 10 Ml Vial For Ativan 1 Mg Dose IV 03/26/24 20:54
Q4HPRN PRN
IV LORAZEPAM DILUTION
Thiamine HCl 100 mg 02/27/24 20:44 03/01/24 08:17
Thiamine 100 Mg Tablet PO 03/26/24 20:43 100 mg
BID IZABEL Administration
Tiotropium [place] 2 puff 02/28/24 08:00 03/01/24 07:28
Tiotropium (Spiriva Respimat) 2.5 Mcg Inhaler INH 03/27/24 07:59 2 puff
R DAILY IZABEL Administration
Protocol
Topiramate 25 mg 03/01/24 08:00 03/01/24 08:18
Topiramate 25 Mg Tablet PO 03/29/24 07:59 25 mg
Q48H IZABEL Administration
Home Medications
-
Home Medications
folic acid 1 mg tablet 1 mg PO DAILY Supplement 12/31/20
famotidine 40 mg tablet 40 mg PO HS Gastrointestinal issue 06/19/21
thiamine HCl (vitamin B1) 100 mg tablet 100 mg PO BID Supplement 06/19/21
dicyclomine 10 mg capsule 10 mg PO DAILYPRN PRN loose stools 08/19/21
primidone 250 mg tablet 250 mg PO HS tremors 11/23/21
lmwrmv-hdafhnxj-ozozqwe 36,000-114,000-180,000 unit capsule,delay rel (Creon) 1 cap PO QPM 03/06/22
nsohtr-iuwtcpko-xkkttsr 36,000-114,000-180,000 unit capsule,delay rel (Creon) 2 cap PO MEALS Gastrointestinal issue 03/06/22
acetaminophen 325 mg tablet (Tylenol) 650 mg PO Q4HPRN PRN mild pain/temp>100 05/26/22
bisacodyl 10 mg rectal suppository (Dulcolax (bisacodyl)) 10 mg [place] DAILYPRN PRN if no bm in 24hrs after MOM 05/26/22
magnesium hydroxide 400 mg/5 mL oral suspension (Milk of Magnesia) 2,400 mg PO DAILYPRN PRN if no bm after 3 days 05/26/22
sennosides 8.6 mg tablet (senna) 17.2 mg PO Q12H Constipation 05/26/22
sodium phosphates 19 gram-7 gram/118 mL enema (Fleet Enema) 118 ml [place] DAILYPRN PRN if no bm in 24hrs after bisacodyl 05/26/22
albuterol sulfate 2.5 mg/3 mL (0.083 %) solution for nebulization 2.5 mg inhalation R Q8 Lung/Breathing Issues 02/22/24
albuterol sulfate 90 mcg/actuation aerosol inhaler 2 puff inhalation R Q4HPRN PRN sob/wheezing 02/22/24
alendronate 70 mg tablet 70 mg PO FR OSTEOPOROSIS 02/22/24
amlodipine 10 mg tablet 10 mg PO DAILY Blood Pressure 02/22/24
apixaban 5 mg tablet (Eliquis) 5 mg PO BID Blood Clot Prevention/Tx 02/22/24
atorvastatin 40 mg tablet 40 mg PO HS High Cholesterol 02/22/24
baclofen 5 mg tablet 5 mg PO TID Pain 02/22/24
calcium carbonate 600 mg PO BID Supplement 02/22/24
diphenhydramine HCl 2 % topical gel (Benadryl) 1 applic topical Q6HPRN PRN itching/rash 02/22/24
docusate sodium 100 mg capsule 200 mg PO DAILY Constipation 02/22/24
ergocalciferol (vitamin D2) 1,250 mcg (50,000 unit) capsule 1,250 mcg PO MO Supplement 02/22/24
estradiol 10 mcg vaginal tablet (Vagifem) 10 mcg vaginal WESA@2200 02/22/24
ferrous sulfate 325 mg (65 mg iron) tablet 325 mg PO DAILY Supplement 02/22/24
fluticasone propionate 50 mcg/actuation nasal spray,suspension 2 spray intranasal BID Allergies 02/22/24
guaifenesin 100 mg/5 mL oral liquid 200 mg PO Q4HPRN PRN cough 02/22/24
guaifenesin 600 mg tablet, extended release 12 hr (Mucinex) 600 mg PO Q12H 02/22/24
hydrocortisone 1 % topical cream 1 applic topical Q6HPRN PRN itching 02/22/24
lidocaine 5 % topical ointment 1 applic topical TID left hip pain 02/22/24
loratadine 10 mg tablet 10 mg PO DAILY Allergies 02/22/24
losartan 50 mg tablet 50 mg PO DAILY Blood Pressure 02/22/24
menthol 5 % topical patch (Icy Hot (menthol)) 1 patch topical DAILY left deltoid 02/22/24
menthol 5 % topical patch (Icy Hot (menthol)) 1 patch topical DAILY left knee 02/22/24
menthol 5 % topical patch (Icy Hot (menthol)) 1 patch topical DAILY left thigh 02/22/24
ondansetron HCl 4 mg tablet 4 mg PO Q8HPRN PRN nausea/vomiting 02/22/24
pantoprazole 40 mg tablet,delayed release 40 mg PO DAILY Gastrointestinal Issue 02/22/24
polyethylene glycol 3350 17 gram oral powder packet 17 g PO BID Constipation 02/22/24
ropinirole 0.5 mg tablet 0.5 mg PO QID 02/22/24
sodium chloride 1,000 mg soluble tablet 1,000 mg PO DAILY 02/22/24
tamsulosin 0.4 mg capsule 0.4 mg PO DAILY Urinary Issue 02/22/24
tiotropium bromide 2.5 mcg/actuation mist for inhalation 2 puff inhalation R DAILY Lung/Breathing Issues 02/22/24
topiramate 25 mg tablet (Topamax) 25 mg PO DAILY Neurological Condition 02/22/24
byrxzbvpst-eibobyozfggri-mozuwgfx 50 mg-300 mg-40 mg capsule (Fioricet) 2 cap PO Q8HPRN PRN headache #20 caps 02/24/24
oxycodone 5 mg tablet 5 mg PO Q8H #20 tabs 02/24/24
amoxicillin 875 mg-potassium clavulanate 125 mg tablet 1 tab PO BID Infection 02/28/24
--- NOTE | 2024-03-01 10:44 | W.DS.TRANS ---
Addendum entered and electronically signed by Murtaza Cruz MD 03/02/24 13:03:
losartan increased
Addendum entered and electronically signed by Murtaza Cruz MD 03/02/24 11:21:
Primidone decreased
Oxycodone decreased
Original Note:
DC Summary - Hotel [employer]
-
Discharge Instructions:
Sleep Apnea Risk Intermediate
Discharge Diagnosis/Procedures Impression:
Probably reasonable seizure
Encephalopathy multifactorial toxic and vascular
.
Metabolic acidosis with increased anion gap.
Aspiration pneumonia with right lower lobe
Other conditions:
Recent hospitalization (02/21 - 03/03) with toxic
metabolic encephalopathy due to polypharmacy and
in the settings of acute kidney injury.
Seizure disorder by history.
Chronic right MCA infarct with left hemiparesis.
(Cryptogenic with no documented history of
arrhythmia)
History of polysubstance and alcohol abuse.
Opiate dependency.
Chronic pancreatitis with chronic pancreatic
insufficiency on enzymes.
History of splenic vein thrombosis on
anticoagulation with Eliquis.
CAD by history
Essential hypertension.
Tobacco use disorder.
Anxiety/depression.
History of breast carcinoma
Diet Regular
Instructions:
Stand-Alone Forms:
Changes to Home Medications: Yes
Discharge Medications:
DC Medications w/original date entered in [employer]
folic acid 1 mg tablet 1 mg PO DAILY Supplement 12/31/20
famotidine 40 mg tablet 40 mg PO HS Gastrointestinal issue 06/19/21
thiamine HCl (vitamin B1) 100 mg tablet 100 mg PO BID Supplement 06/19/21
dicyclomine 10 mg capsule 10 mg PO DAILYPRN PRN loose stools 08/19/21
primidone 250 mg tablet 250 mg PO HS tremors 11/23/21
khwcpr-pgxhbbae-gbulkal 36,000-114,000-180,000 unit capsule,delay rel (Creon) 1 cap PO QPM 03/06/22
udputw-mjpnrwgt-evmcfmy 36,000-114,000-180,000 unit capsule,delay rel (Creon) 2 cap PO MEALS Gastrointestinal issue 03/06/22
acetaminophen 325 mg tablet (Tylenol) 650 mg PO Q4HPRN PRN mild pain/temp>100 05/26/22
bisacodyl 10 mg rectal suppository (Dulcolax (bisacodyl)) 10 mg [place] DAILYPRN PRN if no bm in 24hrs after MOM 05/26/22
magnesium hydroxide 400 mg/5 mL oral suspension (Milk of Magnesia) 2,400 mg PO DAILYPRN PRN if no bm after 3 days 05/26/22
sennosides 8.6 mg tablet (senna) 17.2 mg PO Q12H Constipation 05/26/22
sodium phosphates 19 gram-7 gram/118 mL enema (Fleet Enema) 118 ml [place] DAILYPRN PRN if no bm in 24hrs after bisacodyl 05/26/22
albuterol sulfate 2.5 mg/3 mL (0.083 %) solution for nebulization 2.5 mg inhalation R Q8 Lung/Breathing Issues 02/22/24
albuterol sulfate 90 mcg/actuation aerosol inhaler 2 puff inhalation R Q4HPRN PRN sob/wheezing 02/22/24
alendronate 70 mg tablet 70 mg PO FR OSTEOPOROSIS 02/22/24
amlodipine 10 mg tablet 10 mg PO DAILY Blood Pressure 02/22/24
apixaban 5 mg tablet (Eliquis) 5 mg PO BID Blood Clot Prevention/Tx 02/22/24
atorvastatin 40 mg tablet 40 mg PO HS High Cholesterol 02/22/24
baclofen 5 mg tablet 5 mg PO TID Pain 02/22/24
calcium carbonate 600 mg PO BID Supplement 02/22/24
diphenhydramine HCl 2 % topical gel (Benadryl) 1 applic topical Q6HPRN PRN itching/rash 02/22/24
docusate sodium 100 mg capsule 200 mg PO DAILY Constipation 02/22/24
ergocalciferol (vitamin D2) 1,250 mcg (50,000 unit) capsule 1,250 mcg PO MO Supplement 02/22/24
estradiol 10 mcg vaginal tablet (Vagifem) 10 mcg vaginal WESA@2200 02/22/24
ferrous sulfate 325 mg (65 mg iron) tablet 325 mg PO DAILY Supplement 02/22/24
fluticasone propionate 50 mcg/actuation nasal spray,suspension 2 spray intranasal BID Allergies 02/22/24
guaifenesin 100 mg/5 mL oral liquid 200 mg PO Q4HPRN PRN cough 02/22/24
guaifenesin 600 mg tablet, extended release 12 hr (Mucinex) 600 mg PO Q12H 02/22/24
hydrocortisone 1 % topical cream 1 applic topical Q6HPRN PRN itching 02/22/24
lidocaine 5 % topical ointment 1 applic topical TID left hip pain 02/22/24
loratadine 10 mg tablet 10 mg PO DAILY Allergies 02/22/24
losartan 50 mg tablet 50 mg PO DAILY Blood Pressure 02/22/24
menthol 5 % topical patch (Icy Hot (menthol)) 1 patch topical DAILY left deltoid 02/22/24
menthol 5 % topical patch (Icy Hot (menthol)) 1 patch topical DAILY left knee 02/22/24
menthol 5 % topical patch (Icy Hot (menthol)) 1 patch topical DAILY left thigh 02/22/24
ondansetron HCl 4 mg tablet 4 mg PO Q8HPRN PRN nausea/vomiting 02/22/24
pantoprazole 40 mg tablet,delayed release 40 mg PO DAILY Gastrointestinal Issue 02/22/24
polyethylene glycol 3350 17 gram oral powder packet 17 g PO BID Constipation 02/22/24
ropinirole 0.5 mg tablet 0.5 mg PO QID 02/22/24
sodium chloride 1,000 mg soluble tablet 1,000 mg PO DAILY 02/22/24
tamsulosin 0.4 mg capsule 0.4 mg PO DAILY Urinary Issue 02/22/24
tiotropium bromide 2.5 mcg/actuation mist for inhalation 2 puff inhalation R DAILY Lung/Breathing Issues 02/22/24
levetiracetam 500 mg tablet 500 mg PO BID #60 tabs 03/01/24
oxycodone 5 mg tablet 5 mg PO Q8H #20 tabs 03/01/24
topiramate 25 mg tablet (Topamax) 25 mg PO Q48H Neurological Condition #0 tabs 03/01/24
Home Medication Changes
Keppra imitated
Topamax changed to every other day
Fioricet stopped.
Pending Results: No
[2024-03-01] MEDS: KCL ELIXIR 40 MEQ PO (11:28)
--- NOTE | 2024-03-01 15:43 | W.PN.HOSP.TC ---
Today's Communication/Plan
-
Remains somnolent, possibly communicative effect of Keppra with other sedatives.
Transition Keppra to p.o.
Decrease primidone dose hopefully with attempt to wean. If used for essential tremor could consider beta-shoaib.
Decrease oxycodone to 5 mg every 12 hours
Continue supportive care
Assessment / Plan
Assessment / Plan
Impression:
Probably reasonable seizure
Encephalopathy multifactorial toxic and vascular.
Metabolic acidosis with increased anion gap.
Aspiration pneumonia with right lower lobe
Other conditions:
Recent hospitalization (02/21 - 03/03) with toxic metabolic encephalopathy due to polypharmacy and in the settings of acute kidney injury.
Seizure disorder by history.
Chronic right MCA infarct with left hemiparesis. (Cryptogenic with no documented history of arrhythmia)
History of polysubstance and alcohol abuse.
Opiate dependency.
Chronic pancreatitis with chronic pancreatic insufficiency on enzymes.
History of splenic vein thrombosis on anticoagulation with Eliquis.
CAD by history
Essential hypertension.
Tobacco use disorder.
Anxiety/depression.
History of breast carcinoma
Plan:
Reported behavioral disturbances at the nursing facility, refusal of medications
Had tonicoclonic seizure while in the ED
Suspected withdrawal seizure.
EEG with no recorded epileptic activity
MRI of the brain with old CVA and no acute abnormalities
Given Ativan
Initiated on Keppra.
Additional evaluation with MRI of the brain is reasonable given prior history of malignancy.
Neurology/psychiatry evaluation baseline remains concern for polypharmacy.
Recently taken off buspirone, citalopram, pregabalin, trazodone.
Discontinue Fioricet given patient is on primidone.
Initiated on Keppra with plan to wean as outpatient
Continue primidone.
Wean Topamax as per neurology
Continue Requip.
Continue IV Ativan with attempt to wean off if no recurrent seizure activity
Acute metabolic acidosis
Noted over the last hospitalization thought to be in the settings of NAVDEEP improved with IV fluid bolus
? Topamax could contribute at the current dose.
Also could be in the settings of acute tonic-clonic activity
Monitor
May require IV fluids
Ongoing treatment for right lower lobe pneumonia thought to be an aspiration given recent TME.
Follow-up chest x-ray 02/26 with mild subsegmental atelectasis and scarring in both lower lungs which has decreased and improved since 02/21
Narrow antibiotics to Unasyn.
Monitor respiratory status closely
If stable would consider to discontinue antibiotics after 7 days of treatment. 02/21 - 02/28
Opiate dependence
History of polysubstance abuse
Continue oxycodone monitoring for oversedation
Stop Fioricet since patient is on primidone
Chronic pancreatitis.
History of splenic vein thrombosis
Repeat ultrasound of the abdomen with Doppler findings consistent with hepatic steatosis and no vascular abnormalities
Patient is on anticoagulation with Eliquis
Chronic right MCA infarct thought to be cryptogenic
Currently no documented history of arrhythmia.
Medical records requested.
Continue supportive care
Anticipated Discharge: 24 - 48 hours
Subjective/Interval History
-
Date of Service: March 01, 2024
Objective Data
-
Labs:
Laboratory Results
03/01/24
04:54
Sodium 143
Potassium 3.2 L
Chloride 111 H
Carbon Dioxide 18 L
BUN 9
Creatinine 0.5 L
Glucose 98
Calcium 8.8
Vital Signs:
Vital Signs
Temp Pulse Resp BP Pulse Ox
97.3 F 86 16 136/85 96
03/01/24 14:00 03/01/24 15:22 03/01/24 15:22 03/01/24 14:00 03/01/24 14:00
I&O
02/29/24 03/01/2403/02/24
06:59 06:59 06:59
Intake Total 1320 / 1320 120 / 120 150 / 150
Output Total 150 / 150 400 / 400
Balance 1170 / 1170 -280 / -280 150 / 150
Physical Exam
-
General: Well Developed and No Apparent Distress
HEENT: Normocephalic, Atraumatic and Moist Mucous Membranes
Respiratory: Clear to Auscultation
Cardiac: Regular Rhythm and S1/S2; Negative Murmur, Rub or Gallop
GI: Soft, Nontender, Nondistended and Normal Bowel Sounds; Negative Organomegaly
Rectal: Deferred by Provider
Musculoskeletal: No Clubbing, No Cyanosis and No Edema
Skin: Negative Rash
Neuro: Awake, Alert, Oriented and Other (Left hemiparesis)
[2024-03-01] MEDS: ZENPEP DELAYED RELEASE CAPSULE 1 CAPSULE PO (18:26)
[2024-03-01] MEDS: MYSOLINE 150 MG PO (20:10)
[2024-03-01] MEDS: PEPCID 40 MG PO (20:11)
[2024-03-01] MEDS: LIPITOR 40 MG PO (20:11)
[2024-03-01] MEDS: KEPPRA 500 MG PO (20:11)
[2024-03-02] VITALS (11 sets, daily range): BP systolic 113–206; BP diastolic 74–104
--- NOTE | 2024-03-02 04:54 | PTCARENOTE ---
No acute events overnight. No seizure activity noted. Patient quiet and withdrawn. Nods appropriately when asked questions.
[2024-03-02] MEDS: VENTOLIN NEBULES 2.5 MG INH (07:44)
[2024-03-02] MEDS: SPIRIVA RESPIMAT 2.5 MCG 2 PUFF INH (07:44)
[2024-03-02] MEDS: ELIQUIS 5 MG PO (09:02)
[2024-03-02] MEDS: LIORESAL 5 MG PO ×2 (09:02→15:35)
[2024-03-02] MEDS: NORVASC 10 MG PO (09:03)
[2024-03-02] MEDS: ZENPEP DELAYED RELEASE CAPSULE 2 CAPSULE PO ×2 (09:04→12:13)
[2024-03-02] MEDS: PROTONIX 40 MG PO (09:05)
[2024-03-02] MEDS: FOLVITE 1 MG PO (09:05)
[2024-03-02] MEDS: REQUIP 0.5 MG PO ×2 (09:06→12:12)
[2024-03-02] MEDS: COZAAR 50 MG PO ×2 (09:07→13:18)
[2024-03-02] MEDS: VITAMIN B1 100 MG PO (09:07)
[2024-03-02] MEDS: ROXICODONE 5 MG PO (09:08)
[2024-03-02] MEDS: KEPPRA 500 MG PO (09:08)
[2024-03-02] MEDS: LIDOCAINE 4% PATCH 3 PATCH TOPICAL (09:09)
[2024-03-02] MEDS: MIRALAX 17 GRAMS PO (09:10)
[2024-03-02] MEDS: SENOKOT 17.2 MG PO (09:12)
--- NOTE | 2024-03-02 11:19 | PTCARENOTE ---
received patient from nightshift RN. Patient is withdrawn and is not talking. Patient has poor appetite. Patient is resting in bed with call dooley in reach.
--- NOTE | 2024-03-02 12:04 | CM ---
Patient with Dx seizure, Encephalopathy multifactorial, Metabolic acidosis, aspiration pneumonia. O2 2L. PT & OT recommend skilled rehab.
Spoke with [facility] Liaalejandra Pantoja (cell [phone]); they are able to accept the patient back today. Agree no basis for insurance auth for rehab at SNF as patient's prior level of function is total care and w/c bound. The ph for
report to 3rd floor [phone], fax [phone].
Met with patient, sister and mother yesterday.
Met with patient, sister and spoke with mother on phone again today; they agree with d/c today back to [facility] by ambulance.
Plan [facility] SNF today by ambulance.
[2024-03-02] MEDS: APRESOLINE 10 MG IV (13:20)
[2024-03-02] MEDS: VENTOLIN NEBULES INH (15:38)
== END 2024-03-02 15:50 | DRG 100 ==
LOC: IMU 19:43
PROVIDERS: Emergency Medicine; Physician Assistant Medical; ADMITTING PHYSICIAN Hospitalist; ATTENDING PHYSICIAN Internal Medicine; CONSULT PHYSICIAN Psychiatry & Neurology Neurology; CONSULT PHYSICIAN Psychiatry & Neurology Psychiatry; EMERGENCY PHYSICIAN Emergency Medicine
DX: G40.89 Other seizures (principal); G92.8 Other toxic encephalopathy; J69.0 Pneumonitis due to inhalation of food and vomit; E87.0 Hyperosmolality and hypernatremia; E87.20 Acidosis, unspecified; F11.20 Opioid dependence, uncomplicated; I69.354 Hemiplegia and hemiparesis following cerebral infarction affecting left non-dominant side; K86.1 Other chronic pancreatitis; R41.4 Neurologic neglect syndrome; G25.81 Restless legs syndrome; I10 Essential (primary) hypertension; J44.9 Chronic obstructive pulmonary disease, unspecified; F32.9 Major depressive disorder, single episode, unspecified; E78.00 Pure hypercholesterolemia, unspecified; E86.0 Dehydration; F17.210 Nicotine dependence, cigarettes, uncomplicated; F41.0 Panic disorder [episodic paroxysmal anxiety]; F91.9 Conduct disorder, unspecified; G25.0 Essential tremor; G62.9 Polyneuropathy, unspecified; G89.29 Other chronic pain; I25.10 Atherosclerotic heart disease of native coronary artery without angina pectoris; K21.9 Gastro-esophageal reflux disease without esophagitis; Z87.19 Personal history of other diseases of the digestive system; Z85.3 Personal history of malignant neoplasm of breast; Z92.21 Personal history of antineoplastic chemotherapy; Z79.01 Long term (current) use of anticoagulants; Z86.718 Personal history of other venous thrombosis and embolism; Z87.01 Personal history of pneumonia (recurrent); Z90.710 Acquired absence of both cervix and uterus; Z99.3 Dependence on wheelchair; Z82.49 Family history of ischemic heart disease and other diseases of the circulatory system; Z82.5 Family history of asthma and other chronic lower respiratory diseases
CPT/HCPCS: 70450; 70551; 71045; 76700; 80048; 80053; 80306; 81003; 82010; 82248; 82550; 82728; 83540; 83550; 83605; 83690; 83735; 84100; 84145; 84443; 84484; 85025; 85027; 87070; 93005; 93975; 94640; 95816; 97163; 97167; 99285

== ENCOUNTER 2024-03-15 04:25 | Inpatient (IN) | payer OTHER, SELFPAY ==
[2024-03-14 21:54] VITALS: BP 170/88; BMI 27.2
[2024-03-14 22:00] VITALS: BP 172/94
[2024-03-14 22:25] LABS: % Basophils 0.5 % (0-2); % Eosinophils 1.5 % (0-6); % Immature Granulocytes 0.4 % (0-0.5); % Lymphocytes 14.6 % (20.5-51.1); % Monocytes 7.5 % (1.7-9.3); % Neutrophils 75.5 % (42.2-75.2); Absolute Basophils 0.1 10^3/uL (0-0.2); Absolute Eosinophils 0.2 10^3/uL (0-0.7); Absolute Lymphocytes 1.6 10^3/uL (1.2-3.4); Absolute Monocytes 0.8 10^3/uL (0.1-0.6); Absolute Neutrophils 8.4 10^3/uL (1.4-6.5); Hematocrit 41.9 % (37.0-47.0); Hemoglobin 14.6 g/dL (12.0-16.0); Mean Corp Hgb Conc. 34.8 g/dL (33.0-37.0); Mean Corpuscular Hgb 30.4 pg (27.0-31.0); Mean Corpuscular Volume 87.3 fL (81.0-99.0); Mean Platelet Volume 11.2 fL (7.4-10.4); Nucleated Red Blood Cells % 0 %; Platelet Count 268 10^3/uL (130-400); Red Cell Dist. Width 13.9 % (11.5-14.5); White Blood Cell Count 11.1 10^3/uL (4.8-10.8)
--- NOTE | 2024-03-14 22:31 | ED.GENMED ---
History of Present Illness
<Divine Mak PA-C - Last Filed: 03/15/24 03:22>
General
Chief Complaint: Abdominal Pain
Source: patient
Exam Limitations: none
Time Seen by Provider: 03/14/24 22:05
Nursing documentation reviewed up to this point in time: agreed with
History of Present Illness
History of Present Illness:
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 Patient states that
symptoms started initially this morning when she got up. She describes a sharp stabbing pain in her upper abdomen radiating to around to her mid back. Patient reports significant nausea throughout the day although no episodes of vomiting. Patient
did have 1 episode of vomiting today. No urinary symptoms. No hematochezia. Patient denies any associated chest pain, shortness of breath, lightheadedness, dizziness. Patient denies any fevers or chills.
Patient reports pain is exactly similar to prior episodes of pancreatitis.
Past History
<Divine Mak PA-C - Last Filed: 03/15/24 03:22>
Past History
ED Past Medical History: CAD, Cancer (Breast with lumpectomy), GERD, HTN, Hypercholesterolemia, Psychiatric (Depression, panic disorder, alcohol abuse) and Other (ETOH pancreatitis w/ cyst at tail, headache, dizziness, chronic abdominal
pain/narcotic dependent, Colitis, Ulcers)
ED Past Surgical History: Cholecystectomy, (X 2), Gynecological (Hysterectomy) and Other ( left breast lumpectomy, pancreatic duct stents that have been removed)
Social History
Tobacco: Smoker
Alcohol: Chronic alcoholic (Stopped 1 week ago)
Drug: Marijuana (by [facility] on previous visits)
Personal:
Living: with family (with her mother)
Employment: Not employed
Family History
Family History: Other (reviewed and non-contributory)
Review of Systems
<Divine Mak PA-C - Last Filed: 03/15/24 03:22>
Review of Systems
Allergies reviewed?: Yes
All Other Systems: ROS reviewed and negative except as documented in HPI and ROS
Phy Exam
<Divine Mak PA-C - Last Filed: 03/15/24 03:22>
Physical Exam
Physical Exam:
Vitals: Hypertensive. Otherwise vital signs stable. Afebrile
General: Patient is chronically ill appearing, no acute distress.
Skin: Warm and dry, no rashes or lesions
Head: Normocephalic, atraumatic
Eyes: Sclera nonicteric. EOMs intact. No nystagmus.
Throat: Protecting airway
Neck: Normal ROM, no cervical spine tenderness, no meningismus
Cardiac: Regular rate and rhythm, no murmurs.
Pulm: Normal respiratory effort, no wheezes, rales, rhonchi heard on exam.
Abdomen: Abdomen soft. Moderate tenderness in epigastric region. No rebound tenderness or guarding
Extremities: No evidence of cyanosis or edema. Great distal pulses
Neuro: AAOx3. Left-sided hemiaplasia (chronic following CVA in 2021).
Psychiatric: Normal affect.
Course
<Divine Mak PA-C - Last Filed: 03/15/24 03:22>
Orders/Labs/Results
Orders:
Orders
03/14/24 22:16
Complete Blood Count/With Diff Urgent
Comprehensive Metabolic Panel Urgent
Lipase Urgent
03/14/24 22:27
Electrocardiogram (*1) Urgent
Reason for Study: Abdominal Pain
EKG- Treatment ONCE
0.9% Sodium Chloride 1000 ml [Nss] 1,000 ml IV BOLUS
HYDROmorphone [Dilaudid] 0.5 mg IV NOW STA
Ondansetron Injectable [Zofran] 4 mg IV NOW STA
03/14/24 23:57
HYDROmorphone [Dilaudid] 0.5 mg IV NOW STA
03/15/24 00:58
Lactated Ringers [Lr] 1,000 ml IV BOLUS
03/15/24 02:45
Admit/Transfer Patient As Directed
Co-Sign Provider:
Level of Care: Inpatient admission
Assign to:: Telemetry
Physician / Group: Timo
Diagnosis: Acute / Chronic Pancreatitis
Reason for Telemetry: Arrhythmia
Date to Stop Telemetry: 03/18/24
Time to Stop Telemetry: 11:00
Reason for Hospitalization: Acute / Chronic Pancreatitis
Expected length of stay greater than two midnights?: Yes
ELOS- Estimated Length of Stay in days: 2
I certify the patient meets the requirements for IP care: Yes
PRN Pain Medication Management As Directed
May give lesser potent ordered pain med per pt: Yes
preference::
Protocol:: Medication orders for pain may be administered in a
manner that supports deferring to patient preference
when the pt is:
- Requesting an ordered lesser potent pain medication.
Least to most potent pain medications are defined
as: acetaminophen < NSAID < tramadol < opioids
(morphine, oxycodone, hydromorphone).
- Requesting a lesser dose of the same medication IF
ORDERED.
- Requesting a less intrusive route of administration
if both routes are prescribed by the provider (PO <
IV).
03/15/24 02:53
Code Status As Directed
Resuscitation Status: Full Code
03/18/24 11:00
DC Protocol for Telemetry ONCE
Abnormal Lab Results
03/14/24
22:16
WBC 11.1 H 10^3/uL
(4.8-10.8)
MPV 11.2 H fL
(7.4-10.4)
Absolute Neuts (auto) 8.4 H 10^3/uL
(1.4-6.5)
Absolute Monos (auto) 0.8 H 10^3/uL
(0.1-0.6)
Neutrophils % 75.5 H %
(42.2-75.2)
Lymphocytes % 14.6 L %
(20.5-51.1)
Glucose 135 H mg/dl
(70-99)
Lipase 307 H U/L
(23-300)
03/14/24 22:16
03/14/24 22:16
Vital Signs
Initial and Last Documented VS:
Initial Vital Signs
Temp Pulse Resp BP Pulse Ox
98 F 91 21 170/88 96
03/14/24 21:54 03/14/24 21:54 03/14/24 21:54 03/14/24 21:54 03/14/24 21:54
Last Documented Vital Signs
Temp Pulse Resp BP Pulse Ox
98 F 75 17 140/79 94
03/14/24 21:54 03/15/24 02:00 03/15/24 02:00 03/15/24 02:00 03/15/24 02:00
<Samy Vyas MD - Last Filed: 03/15/24 01:14>
Orders/Labs/Results
Orders:
Orders
03/14/24 22:16
Complete Blood Count/With Diff Urgent
Comprehensive Metabolic Panel Urgent
Lipase Urgent
03/14/24 22:27
Electrocardiogram (*1) Urgent
Reason for Study: Abdominal Pain
EKG- Treatment ONCE
0.9% Sodium Chloride 1000 ml [Nss] 1,000 ml IV BOLUS
HYDROmorphone [Dilaudid] 0.5 mg IV NOW STA
Ondansetron Injectable [Zofran] 4 mg IV NOW STA
03/14/24 23:57
HYDROmorphone [Dilaudid] 0.5 mg IV NOW STA
03/15/24 00:58
Lactated Ringers [Lr] 1,000 ml IV BOLUS
03/15/24 02:45
Admit/Transfer Patient As Directed
Co-Sign Provider:
Level of Care: Inpatient admission
Assign to:: Telemetry
Physician / Group: Timo
Diagnosis: Acute / Chronic Pancreatitis
Reason for Telemetry: Arrhythmia
Date to Stop Telemetry: 03/18/24
Time to Stop Telemetry: 11:00
Reason for Hospitalization: Acute / Chronic Pancreatitis
Expected length of stay greater than two midnights?: Yes
ELOS- Estimated Length of Stay in days: 2
I certify the patient meets the requirements for IP care: Yes
PRN Pain Medication Management As Directed
May give lesser potent ordered pain med per pt: Yes
preference::
Protocol:: Medication orders for pain may be administered in a
manner that supports deferring to patient preference
when the pt is:
- Requesting an ordered lesser potent pain medication.
Least to most potent pain medications are defined
as: acetaminophen < NSAID < tramadol < opioids
(morphine, oxycodone, hydromorphone).
- Requesting a lesser dose of the same medication IF
ORDERED.
- Requesting a less intrusive route of administration
if both routes are prescribed by the provider (PO <
IV).
03/15/24 02:53
Code Status As Directed
Resuscitation Status: Full Code
03/18/24 11:00
DC Protocol for Telemetry ONCE
Abnormal Lab Results
03/14/24
22:16
WBC 11.1 H 10^3/uL
(4.8-10.8)
MPV 11.2 H fL
(7.4-10.4)
Absolute Neuts (auto) 8.4 H 10^3/uL
(1.4-6.5)
Absolute Monos (auto) 0.8 H 10^3/uL
(0.1-0.6)
Neutrophils % 75.5 H %
(42.2-75.2)
Lymphocytes % 14.6 L %
(20.5-51.1)
Glucose 135 H mg/dl
(70-99)
Lipase 307 H U/L
(23-300)
03/14/24 22:16
03/14/24 22:16
Vital Signs
Initial and Last Documented VS:
Initial Vital Signs
Temp Pulse Resp BP Pulse Ox
98 F 91 21 170/88 96
03/14/24 21:54 03/14/24 21:54 03/14/24 21:54 03/14/24 21:54 03/14/24 21:54
Last Documented Vital Signs
Temp Pulse Resp BP Pulse Ox
98 F 75 17 140/79 94
03/14/24 21:54 03/15/24 02:00 03/15/24 02:00 03/15/24 02:00 03/15/24 02:00
<Divine Mak PA-C - Last Filed: 03/15/24 03:22>
MDM/Problems Addressed
Differential Diagnosis Includes:
Not limited to: Acute on chronic pancreatitis, gastritis, GERD, gastric ulcer, etc.
MDM/Problems Addressed:
63-year-old female with history as documented presenting with severe epigastric abdominal pain. Feels similar to prior pancreatitis flares. No fever, chills, chest pain, or shortness of breath. Patient hypertensive on arrival, otherwise vital
signs are stable. Patient is afebrile. Exam as above. Patient's abdomen is soft with moderate epigastric abdominal tenderness without rebound tenderness or guarding. Cardio/pulmonary assessment unremarkable. Labs initiated in triage with a very
mild leukocytosis of 11.1. Lipase of 307. EKG without ischemic changes. Highly suspicious for abdominal pain secondary to acute on chronic pancreatitis despite borderline normal lipase. Symptoms did recently start today and is possible this lab
may increase continue to rise. Given patient is afebrile without significant leukocytosis�do not feel emergent CT imaging is indicated. Do not suspect ACS or cardiac etiology. Will treat pain, give IV fluids. Will closely monitor and reassess
Chronic conditions affecting care:
Chronic pancreatitis, hypertension, CHF
Acute Exacerbation and/or Progression of Chronic Illness:
Acute on chronic pancreatitis, acutely hypertensive
<Divine Mak PA-C - Last Filed: 03/15/24 03:22>
*Pulse Oximetry
Patient hypoxic: no
*EKG
Interpreted by ED Provider?: Yes
EKG Intrepretation Date: 03/15/24
Interpretation: normal
Comparison EKG: changes noted
Heart Rate: 91
Rate: normal
Rhythm: sinus
Ischemia: non-specific ST changes
*Application Security Engineer Interpretation
Rate: Application Security Engineer- N/A
*Critical Care Note
Total Time (30-74mins, 75-104mins- exclusive of procedures): Not Applicable
<Divine Mak PA-C - Last Filed: 03/15/24 03:22>
Update Note
Update Note:
Update 1145PM: Into reassess patient at bedside. Patient reports very minimal if any improvement following 0.5 Dilaudid. Patient still with mild to moderate tenderness in upper abdomen. Patient remained stable. Will give another dose of IV
Dilaudid and reassess. At this point�anticipate admission for pain management, IV fluids.
Update 12:45 PM: Into reassess patient at bedside. Patient still with significant abdominal discomfort despite 2 rounds of IV Dilaudid. Patient will require admission for intractable abdominal pain likely secondary to acute on chronic pancreatitis
for pain management and continued IV hydration. To consider imaging if symptoms persist/worsen. Patient accepted to hospitalist service in stable condition. Patient seen with attending physician
ED Attending Note
<Divine Mak PA-C - Last Filed: 03/15/24 03:22>
-
Portions of this chart may have been created with voice recognition software.� Occasional wrong word or��sound alike� substitutions may have occurred due to the inherent limitations of voice recognition software.
<Samy Vyas MD - Last Filed: 03/15/24 01:14>
ED Attending Note
Patient seen and examined by attending physician: Yes
ED Attending Note:
Patient with history of CVA with residual left-sided deficit, presents [facility] ED from [facility] secondary to recurrent upper abdominal pain associated with nausea sensation without vomiting, starting earlier today. Upper abdominal pain described as
sharp, nonradiating, without any alleviating or exacerbating factors. Patient states that her symptoms are similar to what she has experienced in the past, secondary to pancreatitis. Denies recent change in medications or diet. Denies fever or
chills. Denies diarrhea.
Physical Exam
General: mild distress, not acutely ill. afebrile
Head: nc/at. eomi
Neck: supple. no meningeal signs.
Heart: s1/s2 regular rate and rhythm, no murmur. equal radial pulses.
Lungs: no acute respiratory distress. clear bilaterally
Abdomen: normal bowel sounds. mild epigastric tenderness to palpation. no distention.
Neuro: alert and oriented. no focal neurological deficits
Skin: no rash
Psychiatric: well kept. interactive and cooperative
Extremities: no edema. no calf tenderness.
History and exam, along with blood work concerning for likely recurrent pancreatitis. As patient is afebrile and hemodynamically stable with mild abdominal discomfort, no indication for any imaging studies. Pt will be admitted for further evaluation
and treatment, including pain control and IVF, with consideration to obtain imaging studies, i.e. CT abd/pel, if symptoms persist or worsen.
Discharge Plan
Departure
Patient Disposition: Admit
Date of Disposition: 03/15/24
Time of Disposition: 00:56
Presentation/result/management discussed w/ accepting MD/DO: Hospitalist
Discharge Problem:
Intractable abdominal pain, Acute on chronic pancreatitis
Prescriptions:
No Action
folic acid 1 MG tablet
1 mg PO DAILY
famotidine 40 MG tablet
40 mg PO HS
thiamine HCl (vitamin B1) 100 MG tablet
100 mg PO BID
dicyclomine 10 MG capsule
10 mg PO DAILYPRN PRN (Reason: loose stools)
Creon 36,000-114,000- 180,000 unit Capsule,Delayed Release(Dr/Ec)
2 cap PO MEALS
Creon 36,000-114,000- 180,000 unit Capsule,Delayed Release(Dr/Ec)
1 cap PO QPM
sennosides [senna] 8.6 mg Tablet
17.2 mg PO Q12H
acetaminophen [Tylenol] 325 mg Tablet
650 mg PO Q4HPRN PRN (Reason: mild pain/temp>100)
magnesium hydroxide [Milk of Magnesia] 400 mg/5 mL Suspension
2,400 mg PO DAILYPRN PRN (Reason: if no bm after 3 days)
bisacodyl [Dulcolax (bisacodyl)] 10 mg Suppository
10 mg [place] DAILYPRN PRN (Reason: if no bm in 24hrs after MOM)
Fleet Enema 19-7 gram/118 mL Enema
118 ml [place] DAILYPRN PRN (Reason: if no bm in 24hrs after bisacodyl)
losartan 50 mg tablet
50 mg PO DAILY
atorvastatin 40 mg tablet
40 mg PO HS
Benadryl 2 % Gel
1 applic TOPICAL Q6HPRN PRN (Reason: itching/rash)
albuterol sulfate 2.5 mg /3 mL (0.083 %) solution for nebulization
2.5 mg inhalation R Q8
ondansetron HCl 4 mg tablet
4 mg PO Q8HPRN PRN (Reason: nausea/vomiting)
alendronate 70 mg tablet
70 mg PO FR
guaifenesin 100 mg/5 mL Liquid
200 mg PO Q4HPRN PRN (Reason: cough)
calcium carbonate 600 mg calcium (1,500 mg) Tablet
600 mg PO BID
tamsulosin 0.4 mg Capsule
0.4 mg PO DAILY
amlodipine 10 mg tablet
10 mg PO DAILY
hydrocortisone 1 % Cream
1 applic TOPICAL Q6HPRN PRN (Reason: itching)
pantoprazole 40 mg tablet,delayed release (DR/EC)
40 mg PO DAILY
ferrous sulfate 325 mg (65 mg iron) Tablet
325 mg PO DAILY
ropinirole 0.5 mg tablet
0.5 mg PO QID
docusate sodium 100 mg Capsule
200 mg PO DAILY
ergocalciferol (vitamin D2) 1,250 mcg (50,000 unit) Capsule
1,250 mcg PO MO
albuterol sulfate 90 mcg/actuation HFA aerosol inhaler
2 puff inhalation R Q4HPRN PRN (Reason: sob/wheezing)
fluticasone propionate 50 mcg/actuation [place],Suspension
2 spray INTRANASAL BID
loratadine 10 mg Tablet
10 mg PO DAILY
Icy Hot (menthol) 5 % Adhesive Patch,Medicated
1 patch TOPICAL DAILY
Icy Hot (menthol) 5 % Adhesive Patch,Medicated
1 patch TOPICAL DAILY
Icy Hot (menthol) 5 % Adhesive Patch,Medicated
1 patch TOPICAL DAILY
sodium chloride 1,000 mg Tablet,Soluble
1,000 mg PO DAILY
estradiol [Vagifem] 10 mcg Tablet
10 mcg VAGINAL WESA@2200
lidocaine 5 % Ointment
1 applic TOPICAL TID
tiotropium bromide 2.5 mcg/actuation Mist
2 puff INHALATION R DAILY
Eliquis 5 mg tablet
5 mg PO BID
guaifenesin [Mucinex] 600 mg Tablet Extended Release 12hr
600 mg PO Q12H
baclofen 5 mg tablet
5 mg PO TID
polyethylene glycol 3350 17 gram powder in packet
17 g PO BID
levetiracetam 500 mg Tablet
500 mg PO BID Qty: 60 0RF
topiramate [Topamax] 25 mg Tablet
25 mg PO Q48H Qty: 0 0RF
primidone 50 mg Tablet
150 mg PO HS Qty: 20 0RF
oxycodone 5 mg Tablet
5 mg PO Q12 Qty: 14 0RF
losartan 50 mg Tablet
100 mg PO DAILY Qty: 30 0RF
Referrals:
Kenyatta Mac DO [Family Provider] -
Interventions
Interventions:
*Risk Screen - Suicide Last Done: 03/14/24 21:54
*General Assessment Last Done: 03/14/24 21:54
*Neglect/Abuse Screening Last Done: 03/14/24 21:54
*ED COVID-19 Vaccine History Last Done: 03/14/24 21:54
[id number] Assessment Last Done: 03/14/24 21:54
Discharge Date and Time
Print Language: [place]
[2024-03-14 22:37] LABS: ALT (SGPT) 13 U/L (0-35); AST (SGOT) 17 U/L (14-36); Albumin 4.2 g/dl (3.5-5.0); Alkaline Phosphatase 108 U/L (38-126); Blood Urea Nitrogen 15 mg/dl (7-17); Carbon Dioxide 23 mmol/L (22-30); Chloride 105 mmol/L (98-107); Estimated Creatinine Clearance 76 ml/min; Glucose 135 mg/dl (70-99); Lipase 307 U/L (23-300); Potassium 3.6 mmol/L (3.5-5.1); Sodium 139 mmol/L (135-145); Total Bilirubin 0.4 mg/dl (0.2-1.3); Total Protein 6.8 g/dl (6.3-8.2); eGFR > 60.00
[2024-03-14] MEDS: ZOFRAN 4 MG IV (22:48)
[2024-03-14] MEDS: DILAUDID 0.5 MG IV (22:48)
[2024-03-14] MEDS: NSS 1000 IV (22:48)
[2024-03-14 23:00] VITALS: BP 168/97
[2024-03-15] VITALS (21 sets, daily range): BP systolic 126–177; BP diastolic 67–95; PULSE 77–82; O2SAT 97; BMI 27.2; BMI 26.9
[2024-03-15] MEDS: DILAUDID 0.5 MG IV ×5 (00:03→20:26)
[2024-03-15] MEDS: LR 1000 IV ×3 (01:01→15:47)
--- NOTE | 2024-03-15 02:55 | HPS.HSE ---
Family Physician
-
Family Physician: Kenyatta Mac
Chief Complaint
-
Abd pain, Nausea
History of Present Illness
Patient is a 63y F with PMH significant for seizure disorder, chronic pancreatitis and CVA with residual L hemiparesis who presents to ED complaining of abdominal pain and nausea. Patient states that she woke this AM with epigastric abdominal
pain radiating to the back. Nausea with 1-2 episodes of emesis throughout the day. Patient states that her symptoms progressed throughout the day and she presented to the ED this evening for further evaluation and treatment.
Patient states that she has had poor appetite for the past several days due to some mild nausea and loose stools.
She was most recently hospitalized here 02/26 - 03/02 secondary to seizure activity. Keppra was started and meds adjusted at that time with plan / instructions for continued tapering of medications as an outpatient.
Medical History
Past Medical History
Past Medical History: Reports Other
Additional Past Medical History:
CVA with residual Left Sided Hemiparesis
Essential Hypertension
Hyperlipidemia
Chronic Pancreatitis
Chronic Pain with Opioid Dependence
Anxiety / Depression
Alcohol Use Disorder
Peripheral Neuropathy
Restless Leg Syndrome
Seizure Disorder
Chronic Splenic Vein Thrombosis
Breast Cancer s/p Lumpectomy, Chemotherapy and Radiation
Past Surgical History: Reports Other
Additional Past Surgical History:
Left Breast Lumpectomy
Hysterectomy
Cholecystectomy
Social History
Tobacco: Smoker (1 pack/day)
Alcohol: Daily
Drug: None
Personal: Other (Lives with mother)
Family History
Family History: Not pertinent
Allergies / Home Medications
Allergies reflects when Allergies were last updated in [facility].
Home Medications with original date entered in [facility]
Allergy/Medication List:
Allergies
Allergy/AdvReac Type Severity Reaction Status Date / Time
adhesive Allergy Rash Verified 03/14/24 21:53
diflunisal Allergy Unknown Verified 03/14/24 21:53
silicone Allergy Unknown Verified 03/14/24 21:53
sumatriptan Allergy Unknown Verified 03/14/24 21:53
Home Medications
folic acid 1 mg tablet 1 mg PO DAILY Supplement 12/31/20
famotidine 40 mg tablet 40 mg PO HS Gastrointestinal issue 06/19/21
thiamine HCl (vitamin B1) 100 mg tablet 100 mg PO BID Supplement 06/19/21
dicyclomine 10 mg capsule 10 mg PO DAILYPRN PRN loose stools 08/19/21
pqepju-zslwbfan-cummbdr 36,000-114,000-180,000 unit capsule,delay rel (Creon) 1 cap PO QPM 03/06/22
mkmbsa-[id number]-fqpzufb 36,000-114,000-180,000 unit capsule,delay rel (Creon) 2 cap PO MEALS Gastrointestinal issue 03/06/22
acetaminophen 325 mg tablet (Tylenol) 650 mg PO Q4HPRN PRN mild pain/temp>100 05/26/22
bisacodyl 10 mg rectal suppository (Dulcolax (bisacodyl)) 10 mg NC DAILYPRN PRN if no bm in 24hrs after MOM 05/26/22
magnesium hydroxide 400 mg/5 mL oral suspension (Milk of Magnesia) 2,400 mg PO DAILYPRN PRN if no bm after 3 days 05/26/22
sennosides 8.6 mg tablet (senna) 17.2 mg PO Q12H Constipation 05/26/22
sodium phosphates 19 gram-7 gram/118 mL enema (Fleet Enema) 118 ml NC DAILYPRN PRN if no bm in 24hrs after bisacodyl 05/26/22
albuterol sulfate 2.5 mg/3 mL (0.083 %) solution for nebulization 2.5 mg inhalation R Q8 Lung/Breathing Issues 02/22/24
albuterol sulfate 90 mcg/actuation aerosol inhaler 2 puff inhalation R Q4HPRN PRN sob/wheezing 02/22/24
alendronate 70 mg tablet 70 mg PO FR OSTEOPOROSIS 02/22/24
amlodipine 10 mg tablet 10 mg PO DAILY Blood Pressure 02/22/24
apixaban 5 mg tablet (Eliquis) 5 mg PO BID Blood Clot Prevention/Tx 02/22/24
atorvastatin 40 mg tablet 40 mg PO HS High Cholesterol 02/22/24
baclofen 5 mg tablet 5 mg PO TID Pain 02/22/24
calcium carbonate 600 mg PO BID Supplement 02/22/24
diphenhydramine HCl 2 % topical gel (Benadryl) 1 applic topical Q6HPRN PRN itching/rash 02/22/24
docusate sodium 100 mg capsule 200 mg PO DAILY Constipation 02/22/24
ergocalciferol (vitamin D2) 1,250 mcg (50,000 unit) capsule 1,250 mcg PO MO Supplement 02/22/24
estradiol 10 mcg vaginal tablet (Vagifem) 10 mcg vaginal WESA@2200 02/22/24
ferrous sulfate 325 mg (65 mg iron) tablet 325 mg PO DAILY Supplement 02/22/24
fluticasone propionate 50 mcg/actuation nasal spray,suspension 2 spray intranasal BID Allergies 02/22/24
guaifenesin 100 mg/5 mL oral liquid 200 mg PO Q4HPRN PRN cough 02/22/24
guaifenesin 600 mg tablet, extended release 12 hr (Mucinex) 600 mg PO Q12H 02/22/24
hydrocortisone 1 % topical cream 1 applic topical Q6HPRN PRN itching 02/22/24
lidocaine 5 % topical ointment 1 applic topical TID left hip pain 02/22/24
loratadine 10 mg tablet 10 mg PO DAILY Allergies 02/22/24
losartan 50 mg tablet 50 mg PO DAILY Blood Pressure 02/22/24
menthol 5 % topical patch (Icy Hot (menthol)) 1 patch topical DAILY left deltoid 02/22/24
menthol 5 % topical patch (Icy Hot (menthol)) 1 patch topical DAILY left knee 02/22/24
menthol 5 % topical patch (Icy Hot (menthol)) 1 patch topical DAILY left thigh 02/22/24
ondansetron HCl 4 mg tablet 4 mg PO Q8HPRN PRN nausea/vomiting 02/22/24
pantoprazole 40 mg tablet,delayed release 40 mg PO DAILY Gastrointestinal Issue 02/22/24
polyethylene glycol 3350 17 gram oral powder packet 17 g PO BID Constipation 02/22/24
ropinirole 0.5 mg tablet 0.5 mg PO QID 02/22/24
sodium chloride 1,000 mg soluble tablet 1,000 mg PO DAILY 02/22/24
tamsulosin 0.4 mg capsule 0.4 mg PO DAILY Urinary Issue 02/22/24
tiotropium bromide 2.5 mcg/actuation mist for inhalation 2 puff inhalation R DAILY Lung/Breathing Issues 02/22/24
levetiracetam 500 mg tablet 500 mg PO BID #60 tabs 03/01/24
topiramate 25 mg tablet (Topamax) 25 mg PO Q48H Neurological Condition #0 tabs 03/01/24
losartan 50 mg tablet 100 mg (2 x 50 mg) PO DAILY #30 tabs 03/02/24
oxycodone 5 mg tablet 5 mg PO Q12 #14 tabs 03/02/24
primidone 50 mg tablet 150 mg (3 x 50 mg) PO HS #20 tabs 03/02/24
Review of Systems
-
History Source: Patient
A 12 point ROS was completed and negative except as noted: Yes
Constitutional: Reports Fatigue; Denies Fever or Chills
EENT: Denies Sore Throat
Respiratory: Denies Cough or Trouble Breathing
Cardiac: Reports Chest Pain; Denies Palpitations
Abdomen/GI: Reports Abdominal Pain, Nausea, Vomiting, Diarrhea and Anorexia; Denies Constipated, Bloody Stools or Black Stools
: Denies Dysuria, Frequency or Flank Pain
Musculoskeletal: Denies Joint Pain or Edema
Neurological: Reports Weakness; Denies Dizzy or Headache
Physical Exam
Vital Signs
Vital Signs
Temp Pulse Resp BP Pulse Ox
98 F 75 17 140/79 94
03/14/24 21:54 03/15/24 02:00 03/15/24 02:00 03/15/24 02:00 03/15/24 02:00
Physical Exam
General: Other (63y F in no acute distress.)
HEENT: Moist mucous membranes and PERRLA
Respiratory: Clear; No Wheezes, Rales or Rhonchi
Cardiac: S1/S2 and Regular Rhythm; No Murmur
GI: Soft, Non Distended, Normal Bowel Sounds and Other (Mildly, diffusely tender. No rebound / guarding.)
Musculoskeletal: No Clubbing, No Cyanosis and No Edema
Neuro: AO x 3 and Other (Dense L hemiparesis - chronic / unchanged.)
Laboratory Results
-
03/14/24 22:16
03/14/24 22:16
Laboratory Results
Total Bilirubin 0.4 mg/dl (0.2-1.3) 03/14/24 22:16
AST 17 U/L (14-36) 03/14/24 22:16
ALT 13 U/L (0-35) 03/14/24 22:16
Alkaline Phosphatase 108 U/L (38-126) 03/14/24 22:16
Lipase 307 U/L (23-300) H 03/14/24 22:16
Impression/Plan
-
A/P: Patient is a 63y F with PMH significant for L hemiparesis, chronic pain, seizure disorder and chronic pancreatitis who presents to ED complaining of abdominal pain and nausea.
Acute on Chronic Pancreatitis
- Admit for further evaluation and treatment.
- Symptoms c/w prior episodes of acute pancreatitis per patient.
- Clear liquids for now.
- Pain control, antiemetics, IVFs.
- Continue Creon with meals / at bedtime.
- Continue chronic oxycodone dose.
- Follow for clinical improvement.
Seizure Disorder
- Stable. No new / recent seizure activity.
- Continue Keppra.
- Continue to adjust / taper trazodone and primidone as previously recommended.
- Trazodone down to 25mg [id number] - will hold for acute pancreatitis and would not resume on discharge.
- Primidone decreased to 100mg HS from 150mg.
- Follow for any new seizure activity.
ASCVD
Left Hemiparesis as Late Effect of CVA
- Stable. No new focal deficits.
- Continue current CV med regimen including Eliquis.
Benign Hypertension
- Stable. Continue current medications with holding parameters.
- Losartan is duplicated on her [facility] record.
- Was on 50mg daily at discharge here.
- NH lists 50mg daily and 100mg daily doses.
- Continue 50mg only for now and adjust as needed.
Parkinsonism / Tremors
- Stable. Continue Requip / Baclofen.
Chronic Pain Syndrome
Chronic Opioid Dependence
- Stable. Continue current dose of oxycodone as noted above.
DVT Prophylaxis: On Eliquis
Code Status: Full
[2024-03-15] MEDS: ZOFRAN 4 MG IV ×3 (06:02→20:26)
[2024-03-15 06:13] LABS: Hematocrit 38.7 % (37.0-47.0); Hemoglobin 13.7 g/dL (12.0-16.0); Mean Corp Hgb Conc. 35.4 g/dL (33.0-37.0); Mean Corpuscular Hgb 31.1 pg (27.0-31.0); Platelet Count 285 10^3/uL (130-400); Red Cell Dist. Width 13.9 % (11.5-14.5); White Blood Cell Count 9.1 10^3/uL (4.8-10.8)
--- NOTE | 2024-03-15 06:15 | VATNOTE ---
OF NOTE, PT WITH SIGNIFICANT INFILTRATION OF RUE FROM US GUIDED IV INSERTED EARLIER IN SHIFT, FROM WRIST AREA TO ABOVE ELBOW. PT ENCOURAGED TO KEEP ARM ELEVATED ON PILLOW. IV ESTABLISHED IN LF DOCUMENTED. UNSUCCESSFUL ATTEMPTS LAST ADMISSION FOR
ML/PICC INSERTION. PT HAD IJ INSERTED IN IR. WILL FOLLOW WITH PTS CURRENT PLAN OF CARE AND IV THERAPY NEEDS TO DETERMINE IV THERAPY PHLEBOTOMY/NEEDS GOING FORWARD.PCN TO REQUEST FOOT ORDER FROM PROVIDER IF PT TO BE ADMITTED.
[2024-03-15] MEDS: VENTOLIN NEBULES 2.5 MG INH ×3 (08:00→23:21)
--- NOTE | 2024-03-15 08:52 | W.PN.HOSP.TC ---
Today's Communication/Plan
-
IV fluids. Pain control.
Assessment / Plan
Assessment / Plan
Physical exam:
General: Acute on chronically ill
HEENT: Normocephalic, Atraumatic and Moist Mucous Membranes
Respiratory: Clear to Auscultation; Negative Wheezes, Rales or Rhonchi
Cardiac: Regular Rhythm and S1/S2
GI: Soft, Tender and Nondistended
Musculoskeletal: No Clubbing, No Cyanosis and No Edema
Neuro: Awake, Alert and Oriented
Psych: Calm
A/P:
Acute on Chronic Pancreatitis
- Etiology has been alcohol related in the past although she does not take any alcohol anymore.
- Symptoms c/w prior episodes of acute pancreatitis per patient.
- Changed to n.p.o. and increased IV fluids
- Pain control, antiemetics
- Continue Creon with meals / at bedtime.
Nicotine addiction
-Start nicotine patch
Seizure Disorder
- Stable. No new / recent seizure activity.
- Continue Keppra but changed to IV
- Continue to adjust / taper trazodone and primidone as previously recommended.
- Trazodone down to 25mg [id number] - will hold for acute pancreatitis and would not resume on discharge--> hold anyway for now
- Primidone decreased to 100mg HS from 150mg.
- Follow for any new seizure activity.
ASCVD
Left Hemiparesis as Late Effect of CVA
- Stable. No new focal deficits.
- Continue current CV med regimen including Eliquis.
Benign Hypertension
- Stable. Add IV hydralazine as needed and hold all oral medications for now.
- Losartan is duplicated on her NH record.
- Was on 50mg daily at discharge here.
- NH lists 50mg daily and 100mg daily doses.
- Continue 50mg only for now and adjust as needed.
Parkinsonism / Tremors
- Stable. Continue Requip / Baclofen.
Chronic Pain Syndrome
Chronic Opioid Dependence
- Stable. Continue current dose of oxycodone as noted above.
DVT Prophylaxis: On Eliquis but hold for now and do SCDs
Code Status: Full
Anticipated Discharge: > 48 hours
Subjective/Interval History
-
Date of Service: March 15, 2024
Patient complains of abdominal pain and nausea. She states she is not able to tolerate any of her oral medications yet. Afebrile
Objective Data
-
Labs:
Laboratory Results
03/14/24 03/15/24 03/15/24
22:16 06:00 06:47
WBC 11.1 H 9.1
Hgb 14.6 13.7
Hct 41.9 38.7
Plt Count 268 285
Sodium 139 Cancelled Pending
Potassium 3.6 Cancelled Pending
Chloride 105 Cancelled Pending
Carbon Dioxide 23 Cancelled Pending
BUN 15 Cancelled Pending
Creatinine 0.7 Cancelled Pending
Glucose 135 H Cancelled Pending
Calcium 10.0 Cancelled Pending
Total Bilirubin 0.4
AST 17
ALT 13
Alkaline Phosphatase 108
Vital Signs:
Vital Signs
Temp Pulse Resp BP Pulse Ox
98 F 67 13 147/75 97
03/14/24 21:54 03/15/24 08:45 03/15/24 08:45 03/15/24 08:00 03/15/24 08:45
[2024-03-15] MEDS: KEPPRA 500 MG PO (09:15)
[2024-03-15] MEDS: PROTONIX 40 MG PO (09:15)
[2024-03-15] MEDS: ROXICODONE PO (09:15)
[2024-03-15] MEDS: COZAAR 50 MG PO (09:16)
[2024-03-15] MEDS: FOLVITE 1 MG PO (09:16)
[2024-03-15] MEDS: ELIQUIS PO (09:16)
[2024-03-15] MEDS: ZENPEP DELAYED RELEASE CAPSULE PO (09:18)
[2024-03-15] MEDS: MIRALAX 17 GRAMS PO (09:19)
[2024-03-15] MEDS: NORVASC 10 MG PO (09:22)
[2024-03-15] MEDS: ELIQUIS 5 MG PO (09:47)
[2024-03-15] MEDS: ZENPEP DELAYED RELEASE CAPSULE 2 CAPSULE PO (09:53)
[2024-03-15] MEDS: ROXICODONE 5 MG PO (09:54)
[2024-03-15] MEDS: REQUIP PO (11:29)
[2024-03-15] MEDS: LIORESAL PO (11:29)
[2024-03-15] MEDS: NICODERM TRANSDERMAL 14 MG TRANSDERM (11:41)
--- NOTE | 2024-03-15 18:23 | PTCARENOTE ---
Received patient to 436 awake alert oriented. From [facility]. Has hx of old CVA with left arm flaccid . Has Iv in Left foot . Oriented to room, call dooley in reach.
[2024-03-15] MEDS: ZENPEP DELAYED RELEASE CAPSULE 1 CAPSULE PO (18:25)
[2024-03-15] MEDS: KEPPRA 500 MG IV (20:27)
[2024-03-15] MEDS: PROTONIX IV 40 MG IV (20:27)
[2024-03-15] MEDS: NSS (PRESERVATIVE FREE) 10 ML IV (20:27)
[2024-03-15] MEDS: APRESOLINE 10 MG IV (20:45)
[2024-03-15] MEDS: ProAIR HFA INHALER 2 PUFF INH (21:35)
--- NOTE | 2024-03-15 23:00 | PTCARENOTE ---
Pt reports a headache and nausea; pt isn't due for PRN IV Dilaudid or IV Zofran yet. House PHOTOCOPIER TECHNICIAN Matt notified, order for 1x IV Compazine provided to pt.
[2024-03-15] MEDS: COMPAZINE 10 MG IV (23:11)
[2024-03-15] MEDS: MYSOLINE PO (23:11)
[2024-03-16] MEDS: LR 1000 IV ×3 (00:04→19:47)
[2024-03-16] MEDS: DILAUDID 0.5 MG IV ×6 (00:43→23:00)
[2024-03-16] MEDS: ZOFRAN 4 MG IV ×3 (02:57→19:47)
[2024-03-16 03:31] VITALS: BP 141/89
--- NOTE | 2024-03-16 04:00 | PTCARENOTE ---
Addendum entered by Marcin Herrera RN 03/16/24 05:36:
1x IV Dilaudid 0.25mg provided to pt, not 0.5mg
Original Note:
Pt reports 03/15 upper middle abdominal pain; pt isn't due for IV Dilaudid until 044. [facility] HOIST MECHANIC Matt notified, order for 1x IV Dilaudid 0.5mg provided to pt.
[2024-03-16] MEDS: DILAUDID 0.25 MG IV ×2 (04:17→21:57)
[2024-03-16 06:00] VITALS: BMI 25.8
[2024-03-16 07:15] VITALS: BP 138/74
[2024-03-16] MEDS: VENTOLIN NEBULES 2.5 MG INH ×2 (08:15→15:43)
[2024-03-16] MEDS: PROTONIX IV 40 MG IV ×2 (08:18→19:46)
[2024-03-16] MEDS: NSS (PRESERVATIVE FREE) 10 ML IV ×2 (08:18→19:46)
[2024-03-16] MEDS: NICODERM TRANSDERMAL 14 MG TRANSDERM (08:19)
[2024-03-16] MEDS: KEPPRA 500 MG IV ×2 (08:21→19:46)
--- NOTE | 2024-03-16 08:35 | PTCARENOTE ---
Pt has a left peripheral IV in her foot. Phlebotomy notified RN this am around 0800 that they tried to draw labs through pt's arms, but they were unsuccessful after a few attempts. Phlebotomy asked RN to see if IV team could draw labs off of the
foot IV< but IV team said they could not. DR. Sauceda notified via tiger text at 0835 to see if we need labs or if the pt would need an alternative line to get labs from.
--- NOTE | 2024-03-16 09:31 | W.PN.HOSP.TC ---
Today's Communication/Plan
-
IV fluids. NPO. Pain control. CT of the abdomen and pelvis. GI consult
Assessment / Plan
Assessment / Plan
Physical exam:
General: Acute on chronically ill
HEENT: Normocephalic, Atraumatic and Moist Mucous Membranes
Respiratory: Clear to Auscultation; Negative Wheezes, Rales or Rhonchi
Cardiac: Regular Rhythm and S1/S2
GI: Soft, Tender and Nondistended
Musculoskeletal: No Clubbing, No Cyanosis and No Edema
Neuro: Awake, Alert and Oriented
Psych: Calm
A/P:
Acute on Chronic Pancreatitis
-Plan to do CT of the abdomen today or with IV and oral contrast and if unable to take oral can do it with IV. Still needs to rule in or out pancreatitis and other intra-abdominal pathologies.
-There was some difficulties with vascular access so discussed with IR to see if able to place a central line.
-GI consulted-discussed with GI via [place] text today
-Discussed with RN
-Discussed with mother at bedside today on 03/16
-Keep n.p.o. and IV fluids
-Continue pain control
Prior to today:
- Etiology of pancreatitis in the past has been alcohol related in the past although she does not take any alcohol anymore.
- Symptoms c/w prior episodes of acute pancreatitis per patient.
- Changed to n.p.o. and increased IV fluids
- Pain control, antiemetics
- Continue Creon with meals / at bedtime.
Nicotine addiction
-Start nicotine patch
Seizure Disorder
- Stable. No new / recent seizure activity.
- Continue Keppra but changed to IV
- Continue to adjust / taper trazodone and primidone as previously recommended.
- Trazodone down to 25mg [id number] - will hold for acute pancreatitis and would not resume on discharge--> hold anyway for now
- Primidone decreased to 100mg HS from 150mg.
- Follow for any new seizure activity.
ASCVD
Left Hemiparesis as Late Effect of CVA
- Stable. No new focal deficits.
- Continue current CV med regimen including Eliquis.
Benign Hypertension
- Stable. Add IV hydralazine as needed and hold all oral medications for now.
- Losartan is duplicated on her NH record.
- Was on 50mg daily at discharge here.
- NH lists 50mg daily and 100mg daily doses.
- Continue 50mg only for now and adjust as needed.
Parkinsonism / Tremors
- Stable. Continue Requip / Baclofen.
Chronic Pain Syndrome
Chronic Opioid Dependence
- Stable. Continue current dose of oxycodone as noted above.
DVT Prophylaxis: On Eliquis but hold for now and do SCDs
Code Status: Full
Total time spent on today's encounter was 52 minutes which included time spent in counseling the patient/family regarding diagnosis and treatment plan as listed above, goals of care, and symptom management. Case was discussed with nursing staff,
specialists, and care coordinators/case management. All labs and imaging personally reviewed by me. Remainder the time spent in detailed review of previous records, lab data, imaging, and other medical provider documentation.
Anticipated Discharge: > 48 hours
Subjective/Interval History
-
Date of Service: March 16, 2024
Patient continues to have abdominal pain and she states that is worse than yesterday. Still with nausea. Afebrile
Objective Data
-
Labs:
Laboratory Results
03/16/24
06:00
WBC Pending
Hgb Pending
Hct Pending
Plt Count Pending
Sodium Pending
Potassium Pending
Chloride Pending
Carbon Dioxide Pending
BUN Pending
Creatinine Pending
Glucose Pending
Calcium Pending
Total Bilirubin Pending
AST Pending
ALT Pending
Alkaline Phosphatase Pending
Vital Signs:
Vital Signs
Temp Pulse Resp BP Pulse Ox
98.1 F 85 16 138/74 97
03/16/24 07:15 03/16/24 08:16 03/16/24 08:16 03/16/24 07:15 03/16/24 08:16
I&O
03/15/24 03/16/24 03/17/24
06:59 06:59 06:59
Intake Total 0 / 0 750 / 750
Output Total 250 / 250
Balance -250 / -250 750 / 750
[2024-03-16 11:21] VITALS: BP 157/90
--- NOTE | 2024-03-16 12:14 | CM ---
Addendum entered by Kasey Meehan 03/16/24 16:11:
CM reviewed chart, met with patient bedside. Patient LTC resident at [facility], has been there for about 8 months. Patient ambulates typically via wheelchair, reports she does receive therapy services at [facility]. Patient PCP Kenyatta Mac,
pharmacy [facility] CM will send referral to [facility] in [facility]. CM will continue to follow for all discharge planning needs.
Plan; return to [facility] when stable.
Original Note:
Patient is a LTC patient @ [facility]; 15 day Bed Hold
[2024-03-16] MEDS: OMNIPAQUE PO (12:39)
[2024-03-16] MEDS: PHENERGAN 50.5 MG IV (15:06)
[2024-03-16] MEDS: OMNIPAQUE 50 ML PO (15:09)
--- NOTE | 2024-03-16 15:14 | VATNOTE ---
MD order for midline catheter. Attempted to place x3 unsuccessfully. Client is limited to use of right arm. Both brachial veins and basilic vein cannulated but unable to advance guidewire in any vein in spite of multiple repositioning attempts.
Ordering physician and primary care RN made aware and recommended subcutaneous port or internal jugular line.
[2024-03-16 15:58] VITALS: BP 171/88
--- NOTE | 2024-03-16 16:54 | CON.GI ---
Addendum entered and electronically signed by Pancho Matias MD 03/16/24 19:01:
I saw and examined the patient.
The PA's note was reviewed and I agree with the note.
Comment:
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
pain.
Impression / Rec:
1. Nausea/vomiting, abdo pain - lipase < 3x ULN. CT pending. As of now it remains questionable if she had recurrent acute or acute on chronic pancreatitis. She is no longer drinking alcohol. Will wait for CT result.
Original Note:
Consultation
-
Date/Time Consultation Requested: 03/16/24 1125
Date/Time Consultation Performed: 03/16/24 1654
Requesting Provider: Dr. Sauceda
Performing Provider: Dr. Matias/OMAIAR Ortega
Reason for Consultation: pancreatitis
Medical History
Chief Complaint / HPI
Chief Complaint: Nausea vomiting intermittent abdominal pain for 5 days
History of Present Illness:
63-year-old female with history of CAD, hypertension, breast cancer treated with chemo and radiation, anxiety, depression, history of polysubstance abuse, prior tobacco and alcohol use complicated by chronic pancreatitis, splenic vein thrombosis,
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
currently resides in [facility] who presents to the emergency room with nausea, vomiting and epigastric pain. Asked to evaluate for pancreatitis. The patient tells me that she has had approximately 4-day history of nausea as well as epigastric
discomfort. She states this is dull, constant, nonradiating, nothing makes worse, Dilaudid makes better. She states this is reminiscent of her prior attacks of pancreatitis. She states she has been unable to eat for the past 4 days. She also
states that she has had multiple bowel movements. She denies any fevers, chills, melena, hematochezia, dysphagia or odynophagia. Her urine is yellow. She was recently admitted to [facility] and there were medications that were
discontinued including buspirone, citalopram, trazodone and pregabalin. As it was felt that polypharmacy was contributing to her symptoms. The patient was high risk for seizures on recent EEG. Her dose of Topamax was decreased. Weaned off of
primidone. Furosemide was discontinued. Oxycodone was reduced. And her Fioricet was stopped. Her only new medication was Keppra 500 mg twice daily. The patient was actively vomiting yesterday. She had 1 episode of emesis today. She still does
have discomfort. WBC 9.1, hemoglobin 13.7, hematocrit 38.7, platelets 285, sodium 139, potassium 3.6, BUN 15, creatinine 0.7, glucose 135, calcium 10.0, total bilirubin 0.4, AST 17, ALT 13, alk phos 108, lipase 307. Patient going down for CT
abdomen and pelvis with IV and oral contrast. Patient continues on lactated Ringer's at 125 cc an hour. She has Zofran and Dilaudid available to her. She continues on pantoprazole as well as Creon.
Past Medical History
Past Medical History: Cancer and Other (Breast cancer status postlumpectomy history of chemo and radiation, GERD, hypertension)
Past Surgical History: Cholecystectomy and Other (Cholecystectomy, x2, hysterectomy)
Social History
Tobacco: Smoker
Alcohol: Daily (Quit)
Personal: Single
Living: Assisted
Employment: Not Employed
Family History
Family History: Reviewed & Not Pertinent
Allergies / Home Medications
Allergy/AdvReac Type Severity Reaction Status Date / Time
adhesive Allergy Rash Verified 03/14/24 21:53
diflunisal Allergy Unknown Verified 03/14/24 21:53
silicone Allergy Unknown Verified 03/14/24 21:53
sumatriptan Allergy Unknown Verified 03/14/24 21:53
�Medication �Instructions �Recorded
folic acid 1 mg tablet 1 mg PO DAILY Supplement 12/31/20
famotidine 40 mg tablet 40 mg PO HS Gastrointestinal issue 06/19/21
thiamine HCl (vitamin B1) 100 mg 100 mg PO BID Supplement 06/19/21
tablet
dicyclomine 10 mg capsule 10 mg PO DAILYPRN PRN loose stools 08/19/21
ieueew-kitcqyir-uryyamz 1 cap PO QPM Gastrointestinal Issue 03/06/22
36,000-114,000-180,000 unit
capsule,delay rel (Creon)
wihdju-bttfdkzs-kwkfwhm 2 cap PO MEALS Gastrointestinal 03/06/22
36,000-114,000-180,000 unit issue
capsule,delay rel (Creon)
acetaminophen 325 mg tablet 650 mg PO Q4HPRN PRN mild 05/26/22
(Tylenol) pain/temp>100
bisacodyl 10 mg rectal suppository 10 mg PA DAILYPRN PRN if no bm in 05/26/22
(Dulcolax (bisacodyl)) 24hrs after MOM
magnesium hydroxide 400 mg/5 mL 2,400 mg PO DAILYPRN PRN if no bm 05/26/22
oral suspension (Milk of Magnesia) after 3 days
sennosides 8.6 mg tablet (senna) 17.2 mg PO Q12H Constipation 05/26/22
sodium phosphates 19 gram-7 118 ml PA DAILYPRN PRN if no bm in 05/26/22
gram/118 mL enema (Fleet Enema) 24hrs after bisacodyl
albuterol sulfate 2.5 mg/3 mL 2.5 mg inhalation R TID 02/22/24
(0.083 %) solution for nebulization Lung/Breathing Issues
albuterol sulfate 90 mcg/actuation 2 puff inhalation R Q4HPRN PRN 02/22/24
aerosol inhaler sob/wheezing
alendronate 70 mg tablet 70 mg PO FR OSTEOPOROSIS 02/22/24
amlodipine 10 mg tablet 10 mg PO DAILY Blood Pressure 02/22/24
apixaban 5 mg tablet (Eliquis) 5 mg PO BID Blood Clot 02/22/24
Prevention/Tx
atorvastatin 40 mg tablet 40 mg PO HS High Cholesterol 02/22/24
baclofen 5 mg tablet 5 mg PO TID Pain 02/22/24
calcium carbonate 600 mg PO BID Supplement 02/22/24
diphenhydramine HCl 2 % topical 1 applic topical Q6HPRN PRN 02/22/24
gel (Benadryl) itching/rash
docusate sodium 100 mg capsule 200 mg PO DAILY Constipation 02/22/24
ergocalciferol (vitamin D2) 1,250 1,250 mcg PO MO Supplement 02/22/24
mcg (50,000 unit) capsule
estradiol 10 mcg vaginal tablet 10 mcg vaginal WESA@2200 Hormonal 02/22/24
(Vagifem) Agent
ferrous sulfate 325 mg (65 mg 325 mg PO DAILY Supplement 02/22/24
iron) tablet
fluticasone propionate 50 2 spray intranasal BID Allergies 02/22/24
mcg/actuation nasal
spray,suspension
guaifenesin 100 mg/5 mL oral liquid 200 mg PO Q4HPRN PRN cough 02/22/24
guaifenesin 600 mg tablet, 600 mg PO Q12H Congestion 02/22/24
extended release 12 hr (Mucinex)
hydrocortisone 1 % topical cream 1 applic topical Q6HPRN PRN itching 02/22/24
lidocaine 5 % topical ointment 1 applic topical TID left hip pain 02/22/24
losartan 50 mg tablet 150 mg PO DAILY Blood Pressure 02/22/24
menthol 5 % topical patch (Icy Hot 1 patch topical DAILY Pain 02/22/24
(menthol))
ondansetron HCl 4 mg tablet 4 mg PO Q8HPRN PRN nausea/vomiting 02/22/24
pantoprazole 40 mg tablet,delayed 40 mg PO DAILY Gastrointestinal 02/22/24
release Issue
polyethylene glycol 3350 17 gram 17 g PO BID Constipation 02/22/24
oral powder packet
ropinirole 0.5 mg tablet 0.5 mg PO QID Neurological 02/22/24
Condition
sodium chloride 1,000 mg soluble 1,000 mg PO DAILY Supplement 02/22/24
tablet
tamsulosin 0.4 mg capsule 0.4 mg PO DAILY Urinary Issue 02/22/24
tiotropium bromide 2.5 2 puff inhalation R DAILY 02/22/24
mcg/actuation mist for inhalation Lung/Breathing Issues
levetiracetam 500 mg tablet 500 mg PO BID #60 tabs 03/01/24
topiramate 25 mg tablet (Topamax) 25 mg PO Q48H Neurological 03/01/24
Condition #0 tabs
oxycodone 5 mg tablet 5 mg PO Q12 #14 tabs 03/02/24
primidone 50 mg tablet 150 mg (3 x 50 mg) PO HS #20 tabs 03/02/24
acetaminophen 500 mg tablet 1,000 mg PO Q8HPRN PRN moderate 03/15/24
(Tylenol Extra Strength) pain
duloxetine 20 mg capsule,delayed 20 mg PO BID Mental Health/Anxiety 03/15/24
release (Cymbalta)
loratadine 10 mg tablet 10 mg PO DAILY Allergies 03/15/24
Review of Systems
Vital Signs
Temp Pulse Resp BP Pulse Ox
99.3 F 95 20 171/88 96
03/16/24 15:58 03/16/24 15:58 03/16/24 15:58 03/16/24 15:58 03/16/24 15:58
Physical Exam
Exam
General: No Apparent Distress
HEENT: Anicteric
Respiratory: Clear (anterior)
Cardiac: Regular Rhythm
GI: Soft, Non Distended, Normal Bowel Sounds and Tender (epigastric)
Neuro: AO x 3
Psych: Calm
Results
WBC 9.1 10^3/uL (4.8-10.8) 03/15/24 06:00
Hgb 13.7 g/dL (12.0-16.0) 03/15/24 06:00
Hct 38.7 % (37.0-47.0) 03/15/24 06:00
MCV 88.0 fL (81.0-99.0) 03/15/24 06:00
Plt Count 285 10^3/uL (130-400) 03/15/24 06:00
Absolute Neuts (auto) 8.4 10^3/uL (1.4-6.5) H 03/14/24 22:16
Sodium Cancelled 03/15/24 06:47
Potassium Cancelled 03/15/24 06:47
Chloride Cancelled 03/15/24 06:47
Carbon Dioxide Cancelled 03/15/24 06:47
BUN Cancelled 03/15/24 06:47
Creatinine Cancelled 03/15/24 06:47
Calcium Cancelled 03/15/24 06:47
Total Bilirubin 0.4 mg/dl (0.2-1.3) 03/14/24 22:16
AST 17 U/L (14-36) 03/14/24 22:16
ALT 13 U/L (0-35) 03/14/24 22:16
Alkaline Phosphatase 108 U/L (38-126) 03/14/24 22:16
Lipase 307 U/L (23-300) H 03/14/24 22:16
Diagnostic Image Results:
NO Imaging yet this admission

03/06/22 CT IV and oral: Moderate stable circumferential wall thickening in the gastric antrum, calcifications of the pancreatic tail consistent with chronic pancreatitis. Stable splenic vein thrombosis, absent gallbladder. Mild diverticulosis with
increased fecal burden consistent with constipation
11/23/21- CT A/P IV only�no acute inflammatory abnormality in a/p, small mild complex pericapsular splenic collection up to 2.6 cm concern for evolving chronic hematoma or liquefactive necrosis from prior infarct, splenic vein thrombosed, chronic
pancreatitis
10/29/21- MRI abdomen-atrophy of spleen with subcapsular collection anterolateral margin of spleen suggest hematoma and necrotic tissues, may be from prior infarct, no residual pancreatic changes, no necrosis or fluid collection
06/09/21- CT abdomen/pelvis- 2.5 cm cystic pancreatic mass from prior pancreatitis ( pseudocyst vs walled off necrosis� or cystic pancreatic malignancy, moderate amount of inflammation acute on chronic pancreatitis , chronic thrombosis of splenic vein
with left upper quad varices, severe calcific atherosclerosis, mild chronic pancolitis secondary to prior infection or inflammatory bowel disease, moderate sized fat containing hernia.� prior marco
ERCP:12/16/20- improved CBD stricture s/p stent removal evidence of somewhat improved pancreatic duct stricture with a migrated pancreatic stent s/p stent extraction and balloon clearance of debris
CT abdomen/pelvis-05/15/2020��-eval of bowel pathology limited without oral contrast- suspected wall thickening at cecum, ascending colon and hepatic flexure, splenic flexure and sigmoid colon suggest colitis, marco with� biliary and panc stents DDD
right renal cyst, posterior hernia
ERCP 02/19/2020-new CBD stricture, chronic pancreatitis, balloon sweep and stent placement, worsening MPD stricture with chronic pancreatitis balloon clearance and stent placement
MRI abdomen 02/15/2020-�suspect PUD, no acute pancreatitis, resolution of prior pancreatic duct dilation and placement of stent 3 mm stone in common bile duct not obstructing narrowing of distal common bile duct new from 07/11/2019 secondary to
inflammation minimal ductal dilation. prior marco
�ERCP 12/01/17-- biliary and pancreatic sphincterotomy and dilation of CBD/PD, small PD stones removed, 10F 5cm CBD stent, two 5F 15cm MPD stents placed. Had follow up in December with� increase in the size of the pseudocyst of the pancreas and splenic
infarct. � Pt had ERCP with biliary and pancreatic stents placed and subsequently removed and also reports having celiac nerve block that was unsuccessful for chronic pain.
06/04/2018 CT scan of the abdomen and pelvis�shows new ill-defined soft tissue prominence of the head of the pancreas, may represent focal pancreatitis and interval removal of the pancreatic and common duct stents.� Also noted was questionable mild
colitis in the region of the splenic flexure
06/05/18 MRI of the abdomen�-minimal inflammatory change about the head and tail� of the pancreas consistent with pancreatitis, no abscesses or fluid collections.� Some atrophy of the pancreas, no necrosis, normal caliber common duct and pancreatic
duct without filling defects on MRCP
07/31/18- Ct abdomen/pelvis-�mild standing about head and neck of pancreas suggesting mild acute pancreatitis no fluid collection, mild prominence of pancreatic duct. prior marco, with mild prominence of extrahepatic biliary tract, gastric antral
wall thickening due to non distention, gastritis not excluded, right sided [place]ock[place]k hernia containing fat. right renal cyst
04/17/19�-�US Abdomen-no evidence for peripancreatic fluid collection, no evidence for biliary dilatation, prior marco, no evidence for ascites
10/21/21- colonoscopy-5 mm polyp cecum, 4 mm polyp DC, otherwise normal bx bx with possible lymphocytic colitis, focal active colitis cecal polyp inflammatory changes, DC TA polyp
10/21/21- EGD-normal esophagus, gastritis normal duodenum� bx neg
Assessment / Plan
-
63-year-old female with history of CAD, hypertension, breast cancer treated with chemo and radiation, anxiety, depression, history of polysubstance abuse, prior tobacco and alcohol use complicated by chronic pancreatitis, splenic vein thrombosis,
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
currently resides in [facility] who presents to the emergency room with nausea, vomiting and epigastric pain. Asked to evaluate for pancreatitis. Patient with mild leukocytosis initially which has now normalized. She did have nausea/vomiting
and patient states loose stools. Mildly elevated lipase not necessarily consistent with acute pancreatitis. Await CT scan. Patient is no longer drinking any alcohol as she is in [facility]. Does not necessarily exclude recurrent pancreatitis
however that has been her issues in the past. Only new medication is Keppra which is not associated with pancreatitis.
Impression:
Nausea/vomiting
Epigastric pain
Self-reported loose stools, none here
Plan:
-Continue IV fluids
-Await CT results
-Continue antiemetics
-Clear liquids when patient able, advance to low-fat diet with addition of Creon
-Further recommendations to be forthcoming
-
-
Thank you for consultation and allowing me to participate in the patient's care. Please call the communications superintendent GI physician during the after hours with any questions or concerns.
[2024-03-16] MEDS: ZENPEP DELAYED RELEASE CAPSULE PO (17:20)
[2024-03-16] MEDS: APRESOLINE 10 MG IV (19:31)
[2024-03-16 19:45] VITALS: BP 152/70
[2024-03-16] MEDS: LR IV (19:47)
[2024-03-16] MEDS: MYSOLINE PO (21:04)
[2024-03-16] MEDS: COMPAZINE 5 MG IV (21:58)
[2024-03-16 23:53] VITALS: BP 177/108
[2024-03-17] MEDS: VENTOLIN NEBULES 2.5 MG INH ×3 (00:06→22:52)
[2024-03-17] MEDS: APRESOLINE 5 MG IV (00:25)
[2024-03-17] MEDS: ZOFRAN 4 MG IV ×3 (01:57→17:27)
[2024-03-17] MEDS: LOPRESSOR 2.5 MG IV (02:17)
[2024-03-17] MEDS: COMPAZINE 5 MG IV (02:19)
[2024-03-17 02:45] VITALS: BP 159/87
[2024-03-17] MEDS: DILAUDID 0.5 MG IV ×6 (02:56→22:26)
[2024-03-17] MEDS: LR 1000 IV (04:10)
--- NOTE | 2024-03-17 04:35 | PTCARENOTE ---
Patient asking for pain and nausea medications immediately after being given these medications . FUR POINTER aware and ordered multiple orders throughout shift. Patient continues to ring dooley and ask same questions throughout shift despite multiple staff
members tending to patient throughout shift.
--- NOTE | 2024-03-17 04:42 | PTCARENOTE ---
Patient verbally aggressive with staff, yelling she needs her medications now, while holding finger media sales consultant button.
[2024-03-17 06:00] VITALS: BMI 25.8
[2024-03-17] MEDS: VENTOLIN NEBULES INH (07:27)
[2024-03-17 07:41] VITALS: BP 162/92
[2024-03-17] MEDS: NICODERM TRANSDERMAL 14 MG TRANSDERM (08:13)
[2024-03-17] MEDS: NSS (PRESERVATIVE FREE) 10 ML IV (08:14)
[2024-03-17] MEDS: KEPPRA 500 MG IV (08:15)
[2024-03-17] MEDS: PROTONIX IV 40 MG IV (08:15)
--- NOTE | 2024-03-17 08:52 | W.PN.HOSP.TC ---
Today's Communication/Plan
-
Will start oral medications today. Start clear liquid diet and advance as tolerated.
Assessment / Plan
Assessment / Plan
Physical exam:
General: Acute on chronically ill
HEENT: Normocephalic, Atraumatic and Moist Mucous Membranes
Respiratory: Clear to Auscultation; Negative Wheezes, Rales or Rhonchi
Cardiac: Regular Rhythm and S1/S2
GI: Soft, Tender and Nondistended
Musculoskeletal: No Clubbing, No Cyanosis and No Edema
Neuro: Awake, Alert and Oriented
Psych: Calm
A/P:
Abdominal pain with nausea and vomiting:
Unclear etiology; initially felt to be related to acute pancreatitis but not so convincing at this point. Appears to probably have some chronic pancreatitis.
We had difficulty with IV access but IR placed a line yesterday and we were able to do CT scan with contrast.
Discussed with patient findings on CT scan and explained no acute pathology that requires increased narcotic doses rather will change back to her home doses.
Will also taper down IV narcotics over the next 24 hours and discussed with patient that narcotic use at this point would prove to be more harm than benefit.
Start clear liquid diet today will advance as tolerated
Will stop IV fluids
Restart pancreatic enzymes
Will also restart all her oral medications
She does have a history of polysubstance abuse but has been managed with chronic narcotics as outpatient
Chronic pain with chronic opioid dependence:
As above will reinstitute her oral pain regimen
Aggressive bowel regimen
History of polypharmacy:
Recently d/c some medications prior hospitalizations -->discontinued buspirone, citalopram, trazodone, pregabalin, furosemide, Fioricet, primidone; and Topamax and oxycodone decreased.
Hypertension:
Restart home antihypertensive regimen
Appears to be on amlodipine 10 mg p.o. daily, losartan 50 mg p.o. daily
Monitor blood pressure adjust medications accordingly
Hyperlipidemia:
Restart statin
Seizure disorder:
Continue Keppra
History of CVA in the past:
On Eliquis and statins
Restless leg syndrome:
Continue Requip
History of breast cancer:
Status post lumpectomy and chemo and radiation in the past
COPD:
Continue Spiriva and albuterol inhalers
Nicotine addiction:
Continue nicotine patch
DVT prophylaxis:
Resume Eliquis
CODE STATUS:
Full code
Total time spent on today's encounter was 52 minutes which included time spent in counseling the patient/family regarding diagnosis and treatment plan as listed above, goals of care, and symptom management. Case was discussed with nursing staff,
specialists, and care coordinators/case management. All labs and imaging personally reviewed by me. Remainder the time spent in detailed review of previous records, lab data, imaging, and other medical provider documentation.
Anticipated Discharge: 24 - 48 hours
Subjective/Interval History
-
Date of Service: March 17, 2024
Patient still has abdominal pain. Afebrile
Objective Data
-
Labs:
Laboratory Results
03/17/24
06:00
WBC Pending
Hgb Pending
Hct Pending
Plt Count Pending
PT Pending
INR Pending
Sodium Pending
Potassium Pending
Chloride Pending
Carbon Dioxide Pending
BUN Pending
Creatinine Pending
Glucose Pending
Calcium Pending
Total Bilirubin Pending
AST Pending
ALT Pending
Alkaline Phosphatase Pending
Vital Signs:
Vital Signs
Temp Pulse Resp BP Pulse Ox
98.3 F 100 20 162/92 98
03/17/24 07:41 03/17/24 07:41 03/17/24 07:41 03/17/24 07:41 03/17/24 07:41
I&O
03/16/24 03/17/24 03/18/24
06:59 06:59 06:59
Intake Total 0 / 0 750 / 750
Output Total 250 / 250 1750 / 1750
Balance -250 / -250 -1000 / -1000
[2024-03-17 11:00] VITALS: BP 175/88
[2024-03-17 11:26] LABS: ALT (SGPT) 27 U/L (0-35); AST (SGOT) 23 U/L (14-36); Albumin 3.5 g/dl (3.5-5.0); Alkaline Phosphatase 130 U/L (38-126); Blood Urea Nitrogen 8 mg/dl (7-17); Calcium 9.2 mg/dl (8.4-10.2); Carbon Dioxide 24 mmol/L (22-30); Chloride 103 mmol/L (98-107); Estimated Creatinine Clearance 78 ml/min; Glucose 96 mg/dl (70-99); Lipase 43 U/L (23-300); Magnesium 1.4 mg/dl (1.6-2.3); Potassium 3.9 mmol/L (3.5-5.1); Sodium 139 mmol/L (135-145); Total Bilirubin 0.6 mg/dl (0.2-1.3); Total Protein 5.8 g/dl (6.3-8.2); eGFR > 60.00
[2024-03-17 11:30] LABS: % Basophils 0.4 % (0-2); % Eosinophils 1.2 % (0-6); % Immature Granulocytes 0.4 % (0-0.5); % Lymphocytes 13.6 % (20.5-51.1); % Neutrophils 77.4 % (42.2-75.2); Absolute Eosinophils 0.1 10^3/uL (0-0.7); Absolute Lymphocytes 1.3 10^3/uL (1.2-3.4); Absolute Monocytes 0.7 10^3/uL (0.1-0.6); Absolute Neutrophils 7.3 10^3/uL (1.4-6.5); Hematocrit 37.3 % (37.0-47.0); Hemoglobin 12.9 g/dL (12.0-16.0); Mean Corp Hgb Conc. 34.6 g/dL (33.0-37.0); Mean Corpuscular Hgb 30.2 pg (27.0-31.0); Mean Corpuscular Volume 87.4 fL (81.0-99.0); Mean Platelet Volume 10.9 fL (7.4-10.4); Nucleated Red Blood Cells % 0 %; Platelet Count 215 10^3/uL (130-400); Red Blood Cell Count 4.27 10^6/uL (4.20-5.40); White Blood Cell Count 9.4 10^3/uL (4.8-10.8)
[2024-03-17 11:32] LABS: INR 1.11; PT 14.1 Sec (11.4-14.6)
[2024-03-17 11:42] VITALS: BP 175/88
--- NOTE | 2024-03-17 12:13 | W.PN.GI.CBS2 ---
Today's Communication / Plan
-
advance diet as tolerated, GI s/o.
Assessment / Plan
-
63-year-old female with history of CAD, hypertension, breast cancer treated with chemo and radiation, anxiety, depression, history of polysubstance abuse, prior tobacco and alcohol use complicated by chronic pancreatitis, splenic vein thrombosis,
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
currently resides in [facility] who presents to the emergency room with nausea, vomiting and epigastric pain. Asked to evaluate for pancreatitis. Patient with mild leukocytosis initially which has now normalized. She did have nausea/vomiting
and patient states loose stools. Mildly elevated lipase not necessarily consistent with acute pancreatitis. Await CT scan. Patient is no longer drinking any alcohol as she is in [facility]. Does not necessarily exclude recurrent pancreatitis
however that has been her issues in the past. Only new medication is Keppra which is not associated with pancreatitis.
CT abdomen yesterday showed chronic pancreatitis otherwise was unremarkable. Her lipase is < 3x ULN. She has chronic abdominal pain and nausea at her [facility] and has been receiving pain medications and Zofran. Her symptoms are all chronic,
likely from her chronic pancreatitis. Recommend pain management and advancing diet as tolerated. GI will sign off.
Total Time Spent with Patient (in minutes): 35
Subjective
Subjective
Date of Service: March 17, 2024
C/o pain which are chronic
Objective
Data Reviewed
Laboratory Data:
Laboratory Results
03/17/24 11:00
03/17/24 11:00
Laboratory Results
PT 14.1 Sec (11.4-14.6) 03/17/24 11:00
INR 1.11 03/17/24 11:00
Phosphorus Cancelled 03/15/24 06:47
Magnesium 1.4 mg/dl (1.6-2.3) L 03/17/24 11:00
Total Bilirubin 0.6 mg/dl (0.2-1.3) 03/17/24 11:00
AST 23 U/L (14-36) 03/17/24 11:00
ALT 27 U/L (0-35) 03/17/24 11:00
Alkaline Phosphatase 130 U/L (38-126) H 03/17/24 11:00
Lipase 43 U/L (23-300) 03/17/24 11:00
Vital Signs and I&O:
Vital Signs
Temp Pulse Resp BP Pulse Ox
98.4 F 102 18 175/88 96
03/17/24 11:00 03/17/24 11:00 03/17/24 11:00 03/17/24 11:00 03/17/24 11:00
I&O
03/16/24 03/17/24 03/18/24
06:59 06:59 06:59
Intake Total 0 / 0 750 / 750
Output Total 250 / 250 1750 / 1750
Balance -250 / -250 -1000 / -1000
--- NOTE | 2024-03-17 13:42 | PTCARENOTE ---
per DR Sauceda pt transferred to remove telemetry. all po medications were reordered and pt is now on full liquid diet.
[2024-03-17] MEDS: VITAMIN B1 100 MG PO ×2 (13:43→20:16)
[2024-03-17] MEDS: FLOMAX 0.4 MG PO (13:43)
[2024-03-17] MEDS: OSCAL CAL 500 500 MG PO ×2 (13:43→20:15)
[2024-03-17] MEDS: SENOKOT 17.2 MG PO (13:44)
[2024-03-17] MEDS: CYMBALTA DELAYED RELEASE 20 MG PO ×2 (13:44→20:15)
[2024-03-17] MEDS: COLACE PO (13:44)
[2024-03-17] MEDS: SODIUM CHLORIDE 1 GRAM PO (13:44)
[2024-03-17] MEDS: TOPAMAX 25 MG PO (13:44)
[2024-03-17] MEDS: MAGNESIUM SULFATE 50 IV (13:45)
[2024-03-17] MEDS: REQUIP 0.5 MG PO ×3 (13:45→20:16)
[2024-03-17] MEDS: SPIRIVA RESPIMAT 2.5 MCG 2 PUFF INH (14:28)
[2024-03-17] MEDS: PHENERGAN 50.25 MG IV ×2 (14:38→20:39)
[2024-03-17 15:33] VITALS: BP 171/90
[2024-03-17] MEDS: ZENPEP DELAYED RELEASE CAPSULE 1 CAPSULE PO (17:27)
[2024-03-17] MEDS: ZENPEP DELAYED RELEASE CAPSULE 2 CAPSULE PO (17:27)
[2024-03-17] MEDS: LIORESAL 5 MG PO ×2 (17:27→20:16)
[2024-03-17] MEDS: ROXICODONE 5 MG PO (20:15)
[2024-03-17] MEDS: MYSOLINE 100 MG PO (20:16)
[2024-03-17] MEDS: KEPPRA 500 MG PO (20:16)
[2024-03-17] MEDS: ELIQUIS 5 MG PO (20:16)
[2024-03-17] MEDS: LIPITOR 40 MG PO (20:16)
[2024-03-17] MEDS: MIRALAX PO (20:17)
[2024-03-17] MEDS: TYLENOL 1000 MG PO (20:17)
[2024-03-17 23:00] VITALS: BP 152/83
[2024-03-18] MEDS: SENOKOT PO (01:08)
[2024-03-18] MEDS: DILAUDID 0.5 MG IV ×4 (02:19→22:21)
[2024-03-18] MEDS: ZOFRAN 4 MG IV ×2 (02:22→19:36)
[2024-03-18] MEDS: PHENERGAN 50.25 MG IV ×3 (05:05→22:25)
[2024-03-18 06:00] VITALS: BMI 25.7
[2024-03-18 07:05] VITALS: BP 158/93
[2024-03-18] MEDS: VENTOLIN NEBULES INH (08:02)
[2024-03-18] MEDS: SPIRIVA RESPIMAT 2.5 MCG INH (08:02)
--- NOTE | 2024-03-18 08:06 | W.PN.HOSP.TC ---
Today's Communication/Plan
-
Advance diet. X-ray of the left tibia and hip. Decrease narcotics. Bowel regimen.
Assessment / Plan
Assessment / Plan
Physical exam:
General: Acute on chronically ill
HEENT: Normocephalic, Atraumatic and Moist Mucous Membranes
Respiratory: Clear to Auscultation; Negative Wheezes, Rales or Rhonchi
Cardiac: Regular Rhythm and S1/S2
GI: Soft, Non tender and Nondistended
Musculoskeletal: No Clubbing, No Cyanosis and No Edema
Neuro: Awake, Alert and Oriented, chronic left hemiparesis.
Psych: Calm
A/P:
Abdominal pain with nausea and vomiting:
Improving
Unclear etiology; initially felt to be related to acute pancreatitis but not so convincing at this point. Appears to probably have some chronic pancreatitis and constipation.
We had difficulty with IV access but IR placed a line and we were able to do CT scan with contrast. When ready for discharge can DC central line.
Appreciate GI consult and follow-up
Discussed with patient findings on CT scan and explained no acute pathology that requires increased narcotic doses rather will change back to her home doses.
Stop IV narcotics and discussed with patient and mother at bedside that narcotic use at this point would prove to be more harm than benefit but will keep her outpatient oral narcotics and reevaluate to taper off as outpatient or referral to pain
services.
Increase bowel regimen.
Increase diet to low-fat diet and see how she tolerates.
Will stop IV fluids
Restart pancreatic enzymes
Will also restart all her oral medications
She does have a history of polysubstance abuse but has been managed with chronic narcotics as outpatient
Will obtain x-ray of the left hip and left tibia and fibula today given her history of fall about 2 weeks ago although clinically less likely fracture.
Discussed with mother at bedside today on 03/18
Chronic pain with chronic opioid dependence:
As above will reinstitute her oral pain regimen
Aggressive bowel regimen
History of polypharmacy:
Recently d/c some medications prior hospitalizations -->discontinued buspirone, citalopram, trazodone, pregabalin, furosemide, Fioricet, primidone; and Topamax and oxycodone decreased.
Hypertension:
Restart home antihypertensive regimen
Appears to be on amlodipine 10 mg p.o. daily, losartan 50 mg p.o. daily
Monitor blood pressure adjust medications accordingly
Hyperlipidemia:
Restart statin
Seizure disorder:
Continue Keppra
History of CVA in the past:
On Eliquis and statins
Restless leg syndrome:
Continue Requip
History of breast cancer:
Status post lumpectomy and chemo and radiation in the past
COPD:
Continue Spiriva and albuterol inhalers
Nicotine addiction:
Continue nicotine patch
DVT prophylaxis:
Resume Eliquis
CODE STATUS:
Full code
Anticipated Discharge: 24 - 48 hours
Subjective/Interval History
-
Date of Service: March 18, 2024
Patient today complains of left leg pain and recalls that she had a fall 2 weeks ago. Otherwise she states her abdominal pain is improved although nausea on and off and ready to transition to more solid diet. Afebrile.
Objective Data
-
Labs:
Laboratory Results
03/18/24
07:57
WBC Pending
Hgb Pending
Hct Pending
Plt Count Pending
Sodium Pending
Potassium Pending
Chloride Pending
Carbon Dioxide Pending
BUN Pending
Creatinine Pending
Glucose Pending
Calcium Pending
Vital Signs:
Vital Signs
Temp Pulse Resp BP Pulse Ox
98.0 F 106 16 152/83 94
03/17/24 23:00 03/17/24 23:00 03/17/24 23:00 03/17/24 23:00 03/17/24 23:00
I&O
03/17/24 03/18/24 03/19/24
06:59 06:59 06:59
Intake Total 750 / 750 770 / 770
Output Total 1750 / 1750 1300 / 1300
Balance -1000 / -1000 -530 / -530
[2024-03-18 08:38] LABS: Hematocrit 36.5 % (37.0-47.0); Hemoglobin 12.7 g/dL (12.0-16.0); Mean Corp Hgb Conc. 34.8 g/dL (33.0-37.0); Mean Corpuscular Hgb 31.8 pg (27.0-31.0); Mean Corpuscular Volume 91.5 fL (81.0-99.0); Mean Platelet Volume 11.3 fL (7.4-10.4); Platelet Count 207 10^3/uL (130-400); Red Blood Cell Count 3.99 10^6/uL (4.20-5.40); White Blood Cell Count 7.5 10^3/uL (4.8-10.8)
[2024-03-18 09:08] LABS: Blood Urea Nitrogen 11 mg/dl (7-17); Calcium 9.1 mg/dl (8.4-10.2); Carbon Dioxide 26 mmol/L (22-30); Chloride 104 mmol/L (98-107); Estimated Creatinine Clearance 78 ml/min; Glucose 98 mg/dl (70-99); Potassium 4.1 mmol/L (3.5-5.1); Sodium 140 mmol/L (135-145); eGFR > 60.00
[2024-03-18] MEDS: CYMBALTA DELAYED RELEASE 20 MG PO ×2 (09:20→19:32)
[2024-03-18] MEDS: ROXICODONE 5 MG PO ×2 (09:20→19:32)
[2024-03-18] MEDS: FLOMAX 0.4 MG PO (09:20)
[2024-03-18] MEDS: LIORESAL 5 MG PO ×3 (09:20→22:22)
[2024-03-18] MEDS: VITAMIN B1 100 MG PO ×2 (09:20→19:33)
[2024-03-18] MEDS: REQUIP 0.5 MG PO ×4 (09:20→22:22)
[2024-03-18] MEDS: ZENPEP DELAYED RELEASE CAPSULE 2 CAPSULE PO ×3 (09:20→16:46)
[2024-03-18] MEDS: OSCAL CAL 500 500 MG PO ×2 (09:21→19:33)
[2024-03-18] MEDS: FOLVITE 1 MG PO (09:21)
[2024-03-18] MEDS: KEPPRA 500 MG PO ×2 (09:21→19:33)
[2024-03-18] MEDS: NORVASC 10 MG PO (09:21)
[2024-03-18] MEDS: COZAAR 50 MG PO (09:22)
[2024-03-18] MEDS: PROTONIX 40 MG PO (09:22)
[2024-03-18] MEDS: ELIQUIS 5 MG PO ×2 (09:22→19:32)
[2024-03-18] MEDS: COLACE PO (09:22)
[2024-03-18] MEDS: MIRALAX PO ×2 (09:22→19:33)
[2024-03-18] MEDS: NICODERM TRANSDERMAL 14 MG TRANSDERM (09:22)
[2024-03-18 10:05] VITALS: BP 158/93
--- NOTE | 2024-03-18 10:16 | PTOTSP ---
SPEECH THERAPY SWALLOW EVALUATION:
Patient exhibits grossly functional oropharyngeal swallow at this time. Patient remains at risk for aspiration given history of CVA, and post-prandial aspiration given history of GERD. Patient recently had VSE at 02/23/2024 which indicated
WFL-mild oral stage differences but overall functional, and WFL pharyngeal swallow function; Recommended for Regular textures, thin liquids at that time. Currently admitted with pancreatitis. WBC WNL; No CXR available. Stable respiratory status at
this time. Patient appears to be at baseline level of swallow at this time without signs concerning for aspiration/related complications. Patient requested staying on Full Liquid diet at this time due to nausea; However, once pt able to tolerate,
recommend diet advancement as per recent VSE results: Regular texture diet, thin liquids (with pt to select soft/moist items). Medications crushed in puree per pt preference. Aspiration and Reflux precautions. No skilled ST services are indicated at
this time as pt appears to be at baseline level of swallow function, without signs/symptoms concerning for aspiration at this time. ST to sign off.
RECOMMEND:
1) Regular, Thin Liquids
2) Medications crushed in applesauce
3) Aspiration and Reflux Precautions: upright to 90 degrees, pick soft/moist easy to chew foods, chew well, remain upright for 30 minutes after PO intake
4) Oral care 3x daily
5) No skilled ST services are indicated at this time
[2024-03-18] MEDS: DUPHALAC/CHRONULAC 20 GRAMS PO (12:41)
[2024-03-18] MEDS: MILK OF MAGNESIA 30 ML PO (12:41)
[2024-03-18] MEDS: SENOKOT 17.2 MG PO ×2 (12:41→23:18)
[2024-03-18 15:00] VITALS: BP 122/73
[2024-03-18] MEDS: VENTOLIN NEBULES 2.5 MG INH ×2 (15:49→23:04)
[2024-03-18] MEDS: ZENPEP DELAYED RELEASE CAPSULE 1 CAPSULE PO (16:47)
[2024-03-18] MEDS: TYLENOL 1000 MG PO (16:47)
[2024-03-18] MEDS: MYSOLINE 100 MG PO (22:22)
[2024-03-18] MEDS: LIPITOR 40 MG PO (22:22)
[2024-03-18 23:15] VITALS: BP 161/83
[2024-03-19 06:00] VITALS: BMI 25.7
[2024-03-19 07:20] VITALS: BP 177/84
[2024-03-19] MEDS: VENTOLIN NEBULES INH (07:48)
[2024-03-19] MEDS: SPIRIVA RESPIMAT 2.5 MCG INH (07:48)
[2024-03-19] MEDS: ZENPEP DELAYED RELEASE CAPSULE 2 CAPSULE PO ×3 (08:20→17:05)
[2024-03-19] MEDS: COZAAR 50 MG PO (08:20)
[2024-03-19] MEDS: DRISDOL (VITAMIN D2) 50000 UNITS PO (08:20)
[2024-03-19] MEDS: ELIQUIS 5 MG PO ×2 (08:20→20:40)
[2024-03-19] MEDS: NORVASC 10 MG PO (08:20)
[2024-03-19] MEDS: LIORESAL 5 MG PO ×3 (08:20→22:31)
[2024-03-19] MEDS: COLACE 200 MG PO (08:20)
[2024-03-19] MEDS: KEPPRA 500 MG PO ×2 (08:20→20:40)
--- NOTE | 2024-03-19 08:20 | PTCARENOTE ---
03/19- Patient states, 'can I get one more dose of Dilaudid?' Patient is AAOX3; relaxed position, relaxed but flat facial expression, vocal tone calm. Advised Dilaudid is no longer ordered, but she does have Tylenol. Attempted to educate about
Constipation and that patient needs to make a BM, which is one of the main reasons she's not being discharged as of yet. She refused teaching, stating, 'you're a liar. I want the Dilaudid. No. I need the dilaudid.' Patient escalating in verbal
aggressive tone. Advised again she has Tylenol available for pain. Also attempted to ask where the pain is and the rating of the pain. Patient responded with, 'Just give me the dilaudid.' Notified Physician. Continue to monitor.
[2024-03-19] MEDS: REQUIP 0.5 MG PO ×4 (08:22→22:30)
[2024-03-19] MEDS: ROXICODONE 5 MG PO ×2 (08:23→20:30)
[2024-03-19] MEDS: PROTONIX 40 MG PO (08:23)
[2024-03-19] MEDS: FLOMAX 0.4 MG PO (08:23)
[2024-03-19] MEDS: FOLVITE 1 MG PO (08:24)
[2024-03-19] MEDS: VITAMIN B1 100 MG PO ×2 (08:24→20:40)
[2024-03-19] MEDS: CYMBALTA DELAYED RELEASE 20 MG PO ×2 (08:24→20:31)
[2024-03-19] MEDS: MIRALAX 17 GRAMS PO (08:25)
[2024-03-19] MEDS: NICODERM TRANSDERMAL 14 MG TRANSDERM (08:25)
[2024-03-19] MEDS: OSCAL CAL 500 500 MG PO ×2 (08:25→20:40)
[2024-03-19] MEDS: SENOKOT 17.2 MG PO ×2 (12:43→23:17)
[2024-03-19] MEDS: TOPAMAX 25 MG PO (12:43)
--- NOTE | 2024-03-19 14:07 | CM ---
Chart reviewed and patient is a longterm resident at [facility] and plan is for patient to return to [facility] when stable.
[facility]
Report [phone]
[2024-03-19] MEDS: VENTOLIN NEBULES 2.5 MG INH ×2 (15:25→21:59)
[2024-03-19 15:35] VITALS: BP 155/81
--- NOTE | 2024-03-19 16:03 | W.PN.HOSP.TC ---
Today's Communication/Plan
-
oral Dilaudid for breakthrough pain.
DC planning
Assessment / Plan
Assessment / Plan
A/P:
Abdominal pain with nausea and vomiting:
Improving
Unclear etiology; initially felt to be related to acute pancreatitis but not so convincing at this point. Appears to probably have some chronic pancreatitis and constipation.
We had difficulty with IV access but IR placed a line and we were able to do CT scan with contrast. When ready for discharge can DC central line.
Appreciate GI consult and follow-up -Recommend pain management and signed off.
Stop IV narcotics
Start on prn breakthrough pain med with oral dilaudid
cw bowel regimen.
cw low-fat diet and see how she tolerates.
CW pancreatic enzymes
She does have a history of polysubstance abuse but has been managed with chronic narcotics as outpatient
Chronic pain with chronic opioid dependence:
As above will reinstitute her oral pain regimen
Aggressive bowel regimen
History of polypharmacy:
Recently d/c some medications prior hospitalizations -->discontinued buspirone, citalopram, trazodone, pregabalin, furosemide, Fioricet, primidone; and Topamax and oxycodone decreased.
Hypertension:
Restart home antihypertensive regimen
Appears to be on amlodipine 10 mg p.o. daily, losartan 50 mg p.o. daily
Monitor blood pressure adjust medications accordingly
Hyperlipidemia:
Restart statin
Seizure disorder:
Continue Keppra
History of CVA in the past:
On Eliquis and statins
Restless leg syndrome:
Continue Requip
History of breast cancer:
Status post lumpectomy and chemo and radiation in the past
COPD:
Continue Spiriva and albuterol inhalers
Nicotine addiction:
Continue nicotine patch
DVT prophylaxis:
Resume Eliquis
CODE STATUS:
Full code
Anticipated Discharge: 24 - 48 hours
Subjective/Interval History
-
Date of Service: March 19, 2024
Patient complains of moderate to severe abdominal pain -mostly in epigastric area . She says she is not able to tolerate much oral intake because of pain. She is also nauseous. No vomiting. No fevers.
Patient has a chronic abdominal pain from chronic pancreatitis. She he is on pain medication at the alf. She says she was on 10 mg of OXYCODONE twice a day but was cut down because of sedation apparently.
Objective Data
-
Vital Signs:
Vital Signs
Temp Pulse Resp BP Pulse Ox
97.9 F 92 18 155/81 95
03/19/24 15:35 03/19/24 15:35 03/19/24 15:35 03/19/24 15:35 03/19/24 15:35
I&O
03/18/24 03/19/24 03/20/24
06:59 06:59 06:59
Intake Total 770 / 770 400 / 400
Output Total 1300 / 1300 750 / 750
Balance -530 / -530 -350 / -350
Review of Systems
-
Respiratory: Denies Trouble Breathing
Cardiac: Denies Chest Pain
Neuro: Denies Dizzy
Physical Exam
-
General: No Apparent Distress
Respiratory: Non Labored Respirations; Negative Accessory Resp Muscle Use
Cardiac: Regular Rhythm and S1/S2
GI: Soft, Nondistended, Normal Bowel Sounds and Tender (Epigastric area)
Neuro: AO x 3
Data Reviewed
-
Labs: Labs Reviewed by me
[2024-03-19] MEDS: ZENPEP DELAYED RELEASE CAPSULE 1 CAPSULE PO (17:05)
[2024-03-19] MEDS: DILAUDID 2 MG PO ×2 (17:07→23:17)
--- NOTE | 2024-03-19 17:10 | PTCARENOTE ---
03/19- Patient given PO Dilaudid as per PRN orders d/t pain. Patient states pain is in Whole Body but unable to rate. Relaxed facial expression, calm slow speech, relaxed body position and muscle tone. She states, 'I want it in an IV.' Advised
the IV Dilaudid is not ordered in IV. She said, 'You're a liar. I need the IV.' Advised I will speak to Physician. Notified Physician of further behavior.
[2024-03-19] MEDS: MIRALAX PO (20:40)
[2024-03-19] MEDS: PHENERGAN 50.25 MG IV (21:27)
[2024-03-19] MEDS: MYSOLINE 100 MG PO (22:30)
[2024-03-19] MEDS: LIPITOR 40 MG PO (22:30)
[2024-03-19 22:49] VITALS: BP 129/66
[2024-03-20 05:24] VITALS: BMI 25.5
[2024-03-20] MEDS: DILAUDID 2 MG PO ×3 (06:04→19:20)
[2024-03-20 07:00] VITALS: BP 163/91
[2024-03-20] MEDS: VENTOLIN NEBULES 2.5 MG INH ×2 (08:16→15:20)
[2024-03-20] MEDS: SPIRIVA RESPIMAT 2.5 MCG 2 PUFF INH (08:16)
--- NOTE | 2024-03-20 08:24 | PN.CDI ---
CDI
- -
CDI:
Physician Documentation Request
Admit Date: 03/15/24 04:25
Dear Doctor Bogdan,
Patient admitted with abdominal pain with nausea and vomiting.
03/24 Nutrition assessment, 'Pt has experienced a significant 5.4% wt loss over 1 month related to multiple hospital admissions. Pt meets criteria for severe protein calorie malnutrition of chronic illness with >5% wt loss x 1mo, prolonged poor
intake prior to admission <75% for >1month.
Please provide in your note the diagnosis associated with the above findings and your assessment:
Severe protein calorie malnutrition
Moderate protein calorie malnutrition
Other (please specify)
[place] Criteria ([facility] Hospitalist 2017)
2 or more criteria must be present for either
non severe or severe malnutrition
Note that the criteria differs related to the
presence of an acute or chronic illness
Chronic Illness
Energy Intake Non Severe: <75% for >1 month
Severe: <75% for >1 month
Weight Loss Non Severe: 5% over 1 month
7.5% over 3 months
10% over 6 months
20% over 1 year
Severe: >5% over 1 month
>7.5% over 3 months
>10% over 6 months
>20% over 1 year
Body Fat Non Severe: Mild Loss
Severe: Severe Loss
Muscle Mass Non Severe: Mild Loss
Severe: Severe Loss
Fluid Accumulation Non Severe: Mild Accumulation
Severe: Moderate to severe
accumulation
Reduced Lumber Tailer Strength Non Severe: N/A
Severe: Measurably reduced
Use of terms such as suspected, likely, concern for, or probable (associated with a specific diagnosis that is being evaluated, monitored, or treated as if it exists) are acceptable and can be coded in the inpatient setting, when documented at the
time of discharge.
Thank you,
Natacha DUN,RN, CCDS
CDI Specialist
Available via [place] [employer]
Please use your independent medical judgment in providing your response.
[2024-03-20] MEDS: ZOFRAN 4 MG IV (09:20)
[2024-03-20] MEDS: KEPPRA 500 MG PO ×2 (09:23→20:10)
[2024-03-20] MEDS: CYMBALTA DELAYED RELEASE 20 MG PO ×2 (09:23→20:11)
[2024-03-20] MEDS: ELIQUIS 5 MG PO ×2 (09:23→20:10)
[2024-03-20] MEDS: LIORESAL 5 MG PO ×2 (09:23→17:38)
[2024-03-20] MEDS: ROXICODONE 5 MG PO ×2 (09:23→20:11)
[2024-03-20] MEDS: VITAMIN B1 100 MG PO ×2 (09:23→20:11)
[2024-03-20] MEDS: NORVASC 10 MG PO (09:24)
[2024-03-20] MEDS: PROTONIX 40 MG PO (09:24)
[2024-03-20] MEDS: FLOMAX 0.4 MG PO (09:24)
[2024-03-20] MEDS: ZENPEP DELAYED RELEASE CAPSULE 2 CAPSULE PO ×3 (09:24→17:38)
[2024-03-20] MEDS: OSCAL CAL 500 500 MG PO (09:25)
[2024-03-20] MEDS: MIRALAX 17 GRAMS PO (09:25)
[2024-03-20] MEDS: COLACE 200 MG PO (09:25)
[2024-03-20] MEDS: FOLVITE 1 MG PO (09:26)
[2024-03-20] MEDS: COZAAR 50 MG PO (09:38)
[2024-03-20] MEDS: REQUIP 0.5 MG PO ×3 (09:38→17:37)
[2024-03-20] MEDS: NICODERM TRANSDERMAL 14 MG TRANSDERM (09:39)
[2024-03-20] MEDS: SENOKOT 17.2 MG PO (11:27)
[2024-03-20] MEDS: PHENERGAN 50.25 MG IV ×2 (13:34→17:41)
--- NOTE | 2024-03-20 13:41 | W.PN.HOSP.TC ---
Addendum entered and electronically signed by Huang Mcfadden MD 03/20/24 15:43:
Pt has experienced a significant 5.4% wt loss over 1 month related to multiple hospital admissions. Pt meets criteria for severe protein calorie malnutrition of chronic illness with >5% wt loss x 1mo, prolonged poor intake prior to admission <75%
for >1month.
Original Note:
Today's Communication/Plan
-
DC
Assessment / Plan
Assessment / Plan
A/P:
Abdominal pain with nausea and vomiting:
Improving/Intemittently present in the day.
Unclear etiology; initially felt to be related to acute pancreatitis but not so convincing at this point. Appears to probably have some chronic pancreatitis and constipation.
Appreciate GI consult and follow-up -Recommend pain management and signed off.
Stopped IV narcotics
Started on prn breakthrough pain med with oral dilaudid
cw bowel regimen.CW prn nausea medication
cw low-fat diet and see how she tolerates.
CW pancreatic enzymes
She does have a history of polysubstance abuse but has been managed with chronic narcotics as outpatient
Chronic pain with chronic opioid dependence:
As above will reinstitute her oral pain regimen
Aggressive bowel regimen
History of polypharmacy:
Recently d/c some medications prior hospitalizations -->discontinued buspirone, citalopram, trazodone, pregabalin, furosemide, Fioricet, primidone; and Topamax and oxycodone decreased.
Hypertension:
Restart home antihypertensive regimen
Appears to be on amlodipine 10 mg p.o. daily, losartan 50 mg p.o. daily
Monitor blood pressure adjust medications accordingly
Hyperlipidemia:
Restart statin
Seizure disorder:
Continue Keppra
History of CVA in the past:
On Eliquis and statins
Restless leg syndrome:
Continue Requip
History of breast cancer:
Status post lumpectomy and chemo and radiation in the past
COPD:
Continue Spiriva and albuterol inhalers
Nicotine addiction:
Continue nicotine patch
DVT prophylaxis:
Resume Eliquis
CODE STATUS:
Full code
DC home on pain regimen
Medically stable for DC
Total time of dc 32 min
Anticipated Discharge: Today
Subjective/Interval History
-
Date of Service: March 20, 2024
Still with intermittent nausea and abdo pain.
Toleraing little diet.
No vomiting.
Nausea and abdo pain has been chronic issue for her at the facility too she says.
Objective Data
-
Vital Signs:
Vital Signs
Temp Pulse Resp BP Pulse Ox
97.7 F 92 16 163/91 96
03/20/24 07:00 03/20/24 08:19 03/20/24 08:19 03/20/24 07:00 03/20/24 08:19
I&O
03/19/24 03/20/24 03/21/24
06:59 06:59 06:59
Intake Total 400 / 400 120 / 120
Output Total 750 / 750
Balance -350 / -350 120 / 120
Review of Systems
-
Constitutional: Denies Fever
Respiratory: Denies Trouble Breathing
Cardiac: Denies Chest Pain
Neuro: Denies Dizzy
Physical Exam
-
General: No Apparent Distress
HEENT: Moist Mucous Membranes
Respiratory: Clear to Auscultation
Cardiac: Regular Rhythm and S1/S2
GI: Soft, Nondistended, Normal Bowel Sounds and Tender (discomfort in epigastric area but no rebound or guarding)
Neuro: AO x 3
[2024-03-20] MEDS: AFLURIA (36 mos+) 2024-2025 FORMULA 0.5 ML IM (14:32)
[2024-03-20 15:00] VITALS: BP 132/69
[2024-03-20] MEDS: FLEET PHOSPHATE ENEMA-ADULT 118 ML RECTAL (15:00)
[2024-03-20] MEDS: ZENPEP DELAYED RELEASE CAPSULE 1 CAPSULE PO (17:41)
--- NOTE | 2024-03-20 17:52 | CM ---
Reviewed chart, received indication that patient is medically cleared for discharge. Spoke with Mar in admissions at [facility] who confirmed that patient can return and does not need auth. # For report [phone]
Completed medical necessity and transfer sheet for [facility] [employer] development [employer].
Transportation scheduled for 19:30.
Met with patient who was updated. She signed IMM and it is now on chart.
Plan: Case management will continue to follow and assist with discharge planing. [facility].
[2024-03-20] MEDS: OSCAL CAL 500 PO (20:11)
[2024-03-20] MEDS: MIRALAX PO (20:11)
--- NOTE | 2024-03-20 21:30 | PTCARENOTE ---
Pt transferred to previous living site via ambulance. Report given by day shift to [facility]. Report given to acute care ambulance. Pt given prn pain medications. Pt appears comfortable.
--- NOTE | 2024-03-21 08:03 | W.DCSUMMARY ---
Discharge Summary
Discharge Data
Date of Admission: 03/15/24
Date of Discharge: 03/21/24
-
Pending Results: No
Hospital Course
Primary diagnosis:
Chronic abdominal pain suspected secondary to chronic pancreatitis and constipation.
Secondary diagnosis:
Chronic pain with chronic opiate dependence
Hypertension
Seizure disorder
Hyperlipidemia
History of cerebrovascular accident
Restless leg syndrome.
Chronic obstructive pulmonary disease
History of breast cancer
Hospital course:
63-year-old lady with a history of chronic pancreatitis presented with abdominal pain and nausea. Symptoms were consistent with prior episodes of acute pancreatitis per patient. CT of the abdomen showed chronic pancreatitis and otherwise was
unremarkable. Lipase was less than 3 times of upper limit of normal. Was seen by GI who noted that she has chronic abdominal pain and nausea at [facility] and was receiving pain medication and Zofran. They felt her symptoms are all chronic
likely from chronic pancreatitis. Recommended pain management and advancing diet and signed off. She was put on low-fat diet which she was tolerating. She was on long-acting oxycodone twice a day. Low-dose Dilaudid as needed was introduced for
pain management. Zofran was continued. When she was tolerating diet she was discharged back to [facility].
Consultants on board:
[facility]
Discharge Plan
-
Patient Disposition: [facility]NF
Discharge Diagnosis/Procedures: Chronic abdominal pain suspected secondary to chronic pancreatitis and constipation
Diet: Low Fat
Activity: As tolerated
Driving Restrictions: No driving
Bathing Restrictions: None
Referrals:
Kenyatta Mac DO [Family Provider] -
Prescriptions:
New
hydromorphone 2 mg tablet
2 mg PO Q6H PRN (Reason: severe pain) Qty: 6 0RF
Continued
folic acid 1 MG tablet
1 mg PO DAILY
famotidine 40 MG tablet
40 mg PO HS
thiamine HCl (vitamin B1) 100 MG tablet
100 mg PO BID
Creon 36,000-114,000- 180,000 unit Capsule,Delayed Release(Dr/Ec)
2 cap PO MEALS
Creon 36,000-114,000- 180,000 unit Capsule,Delayed Release(Dr/Ec)
1 cap PO QPM
sennosides [senna] 8.6 mg Tablet
17.2 mg PO Q12H
acetaminophen [Tylenol] 325 mg Tablet
650 mg PO Q4HPRN PRN (Reason: mild pain/temp>100)
magnesium hydroxide [Milk of Magnesia] 400 mg/5 mL Suspension
2,400 mg PO DAILYPRN PRN (Reason: if no bm after 3 days)
bisacodyl [Dulcolax (bisacodyl)] 10 mg Suppository
10 mg W[place] DAILYPRN PRN (Reason: if no bm in 24hrs after MOM)
Fleet Enema 19-7 gram/118 mL Enema
118 ml WV DAILYPRN PRN (Reason: if no bm in 24hrs after bisacodyl)
atorvastatin 40 mg tablet
40 mg PO HS
Benadryl 2 % Gel
1 applic TOPICAL Q6HPRN PRN (Reason: itching/rash)
albuterol sulfate 2.5 mg /3 mL (0.083 %) solution for nebulization
2.5 mg inhalation R TID
ondansetron HCl 4 mg tablet
4 mg PO Q8HPRN PRN (Reason: nausea/vomiting)
alendronate 70 mg tablet
70 mg PO FR
calcium carbonate 600 mg calcium (1,500 mg) Tablet
600 mg PO BID
tamsulosin 0.4 mg Capsule
0.4 mg PO DAILY
amlodipine 10 mg tablet
10 mg PO DAILY
pantoprazole 40 mg tablet,delayed release (DR/EC)
40 mg PO DAILY
ferrous sulfate 325 mg (65 mg iron) Tablet
325 mg PO DAILY
ropinirole 0.5 mg tablet
0.5 mg PO QID
docusate sodium 100 mg Capsule
200 mg PO DAILY
ergocalciferol (vitamin D2) 1,250 mcg (50,000 unit) Capsule
1,250 mcg PO MO
albuterol sulfate 90 mcg/actuation HFA aerosol inhaler
2 puff inhalation R Q4HPRN PRN (Reason: sob/wheezing)
fluticasone propionate 50 mcg/actuation [place],Suspension
2 spray INTRANASAL BID
estradiol [Vagifem] 10 mcg Tablet
10 mcg VAGINAL WESA@2200
tiotropium bromide 2.5 mcg/actuation Mist
2 puff INHALATION R DAILY
Eliquis 5 mg tablet
5 mg PO BID
baclofen 5 mg tablet
5 mg PO TID
polyethylene glycol 3350 17 gram powder in packet
17 g PO BID
levetiracetam 500 mg Tablet
500 mg PO BID Qty: 60 0RF
topiramate [Topamax] 25 mg Tablet
25 mg PO Q48H Qty: 0 0RF
primidone 50 mg Tablet
150 mg PO HS Qty: 20 0RF
oxycodone 5 mg Tablet
5 mg PO Q12 Qty: 14 0RF
loratadine 10 mg Tablet
10 mg PO DAILY
duloxetine [Cymbalta] 20 mg Capsule,Delayed Release(Dr/Ec)
20 mg PO BID
Changed
losartan 50 mg tablet
50 mg PO DAILY Qty: 0 0RF
Discontinued
dicyclomine 10 MG capsule
10 mg PO DAILYPRN PRN (Reason: loose stools)
guaifenesin 100 mg/5 mL Liquid
200 mg PO Q4HPRN PRN (Reason: cough)
hydrocortisone 1 % Cream
1 applic TOPICAL Q6HPRN PRN (Reason: itching)
Icy Hot (menthol) 5 % Adhesive Patch,Medicated
1 patch TOPICAL DAILY
Rx Instructions:
left deltoid, left knee and thigh
sodium chloride 1,000 mg Tablet,Soluble
1,000 mg PO DAILY
lidocaine 5 % Ointment
1 applic TOPICAL TID
guaifenesin [Mucinex] 600 mg Tablet Extended Release 12hr
600 mg PO Q12H
acetaminophen [Tylenol Extra Strength] 500 mg Tablet
1,000 mg PO Q8HPRN PRN (Reason: moderate pain)
Discharge Orders:
Discharge Patient (As Directed); Ordered 03/20/24
Ordered By: Huang Mcfadden
Discharge Date and Time
Discharge Date/Time: 03/20/24 21:30
Print Language: YI
== END 2024-03-20 21:30 | DRG 438 ==
LOC: 4 WEST ACU 04:25
PROVIDERS: Emergency Medicine; Hospitalist; ADMITTING PHYSICIAN Hospitalist; ATTENDING PHYSICIAN Internal Medicine; CONSULT PHYSICIAN Internal Medicine Gastroenterology; EMERGENCY PHYSICIAN Emergency Medicine; FAMILY PHYSICIAN Family Medicine
PROC: 3E02340 Introduction of Influenza Vaccine into Muscle, Percutaneous Approach (ICD-10-PCS; 2024-03-20)
DX: K85.90 Acute pancreatitis without necrosis or infection, unspecified (principal); E43 Unspecified severe protein-calorie malnutrition; F11.20 Opioid dependence, uncomplicated; I69.354 Hemiplegia and hemiparesis following cerebral infarction affecting left non-dominant side; K86.3 Pseudocyst of pancreas; K86.1 Other chronic pancreatitis; G20.C Parkinsonism, unspecified; F32.A Depression, unspecified; G25.81 Restless legs syndrome; G40.909 Epilepsy, unspecified, not intractable, without status epilepticus; I10 Essential (primary) hypertension; J44.9 Chronic obstructive pulmonary disease, unspecified; F10.21 Alcohol dependence, in remission; E78.00 Pure hypercholesterolemia, unspecified; G89.4 Chronic pain syndrome; F17.210 Nicotine dependence, cigarettes, uncomplicated; F41.0 Panic disorder [episodic paroxysmal anxiety]; G62.9 Polyneuropathy, unspecified; I25.10 Atherosclerotic heart disease of native coronary artery without angina pectoris; K21.9 Gastro-esophageal reflux disease without esophagitis; M81.0 Age-related osteoporosis without current pathological fracture; Z68.27 Body mass index [BMI] 27.0-27.9, adult; Z79.01 Long term (current) use of anticoagulants; Z79.83 Long term (current) use of bisphosphonates; Z79.899 Other long term (current) drug therapy; Z87.19 Personal history of other diseases of the digestive system; Z85.3 Personal history of malignant neoplasm of breast; Z92.21 Personal history of antineoplastic chemotherapy; Z92.3 Personal history of irradiation; Z86.718 Personal history of other venous thrombosis and embolism; Z90.49 Acquired absence of other specified parts of digestive tract; Z90.710 Acquired absence of both cervix and uterus; Z88.8 Allergy status to other drugs, medicaments and biological substances; Z23 Encounter for immunization
CPT/HCPCS: 36556; 73502; 73590; 74177; 76937; 77001; 80048; 80053; 83690; 83735; 85025; 85027; 85610; 87070; 90686; 92610; 93005; 94640; 96361; 96374; 96375; 96376; 97162; 99285; 99406; C1751; G0008; Q9967

== ENCOUNTER 2024-03-29 23:27 | Emergency (ER) | payer OTHER, SELFPAY ==
[2024-03-29 23:33] VITALS: BP 147/95
[2024-03-29 23:38] VITALS: BP 147/95
--- NOTE | 2024-03-29 23:40 | ED.GENMED ---
History of Present Illness
<Nancy Del Valle PA-C - Last Filed: 03/30/24 04:46>
General
Chief Complaint: Cough
Source: patient
Exam Limitations: none
Time Seen by Provider: 03/29/24 23:39
Nursing documentation reviewed up to this point in time: agreed with
History of Present Illness
History of Present Illness:
63-year-old female with past medical history of chronic pancreatitis, CVA with residual left-sided weakness, COPD, CHF presents emergency department today with concerns of chest pain and shortness of breath. Patient reports that this started around
10 PM today. Patient states that she was lying in bed when she for started to notice her symptoms. The symptoms started first with the chest pain and she developed shortness of breath as well. She notes the chest pain radiates down the left arm.
She then called nursing staff and to notify them of her symptoms. Despite triage note, patient reports that she has no cough or upper respiratory symptoms. Patient denies any recent sick contacts. Patient reports chronic nausea but she denies any
abdominal pain, vomiting, constipation, diarrhea. Patient denies any radiation of the pain to the back. Patient denies any coughing up of sputum, any coughing up of blood. Patient denies any syncopal episodes. Patient denies any swelling in her
lower legs. Patient's orthodontic lab technician is Dr. Plummer in [place]. She does not use oxygen at baseline.
Past History
<Nancy Del Valle PA-C - Last Filed: 03/30/24 04:46>
Past History
ED Past Medical History: CAD, Cancer (Breast with lumpectomy), GERD, HTN, Hypercholesterolemia, Psychiatric (Depression, panic disorder, alcohol abuse) and Other (ETOH pancreatitis w/ cyst at tail, headache, dizziness, chronic abdominal
pain/narcotic dependent, Colitis, Ulcers)
ED Past Surgical History: Cholecystectomy, (X 2), Gynecological (Hysterectomy) and Other ( left breast lumpectomy, pancreatic duct stents that have been removed)
Social History
Tobacco: Smoker
Alcohol: Chronic alcoholic (Stopped 1 week ago)
Drug: Marijuana (by [facility] on previous visits)
Personal:
Living: with family (with her mother)
Employment: Not employed
Family History
Family History: Other (reviewed and non-contributory)
Review of Systems
<Nancy Del Valle PA-C - Last Filed: 03/30/24 04:46>
Review of Systems
All Other Systems: ROS reviewed and negative except as documented in HPI and ROS
Phy Exam
<PATRICIA So Last Filed: 03/30/24 04:46>
Physical Exam
Physical Exam:
General: Patient is well appearing and in no acute distress; non-toxic
Skin: Warm and dry, no rashes or lesions
Head: Normocephalic, atraumatic
Eyes: Sclera non-icteric. EOMs intact. PERRLA.
Cardiac: Regular rate and rhythm, no murmurs. No tenderness palpation of external chest wall.
Peripheral Vascular: No lower extremity swelling or edema
Pulm: Normal respiratory effort, no wheezes, rales, rhonchi
Abdomen: No abdominal tenderness to palpation
Neuro: CN II-XII intact, no focal neurologic deficits.
Psychiatric: Appropriate mood and affect.
Course
<Nancy Del Valle PA-C - Last Filed: 03/30/24 04:46>
Orders/Labs/Results
Orders:
Orders
03/29/24 23:51
Electrocardiogram (*1) Urgent
Reason for Study: Chest Pain
EKG- Treatment ONCE
Complete Blood Count/With Diff Urgent
Comprehensive Metabolic Panel Urgent
NT-proBNP Urgent
Troponin I Urgent
03/30/24 00:01
CR Chest - 2 Views Urgent
Reason For Exam: substernal chest pain, shortness of breath
03/30/24 02:32
Acetaminophen [Tylenol] 650 mg PO NOW STA
03/30/24 03:00
Electrocardiogram (*1) Urgent
Reason for Study: Chest Pain
03/30/24 03:08
Troponin I Urgent
Abnormal Lab Results
03/30/24
01:21
WBC 11.9 H 10^3/uL
(4.8-10.8)
MPV 11.2 H fL
(7.4-10.4)
Abs Immat Gran (auto) 0.1 H 10^3/uL
(0-0.05)
Absolute Neuts (auto) 8.8 H 10^3/uL
(1.4-6.5)
Absolute Monos (auto) 0.9 H 10^3/uL
(0.1-0.6)
Lymphocytes % 15.4 L %
(20.5-51.1)
Carbon Dioxide 16 L mmol/L
(22-30)
Glucose 143 H mg/dl
(70-99)
03/30/24 01:21
03/30/24 01:21
Vital Signs
Initial and Last Documented VS:
Initial Vital Signs
Pulse Resp BP Pulse Ox
98 27 147/95 98
03/29/24 23:33 03/29/24 23:33 03/29/24 23:33 03/29/24 23:33
Last Documented Vital Signs
Temp Pulse Resp BP Pulse Ox
97.8 F 97 20 139/85 98
03/29/24 23:38 03/30/24 00:15 03/30/24 00:15 03/30/24 00:00 03/30/24 01:50
<Eddi Aly, DO - Last Filed: 03/30/24 03:22>
Orders/Labs/Results
Orders:
Orders
03/29/24 23:51
Electrocardiogram (*1) Urgent
Reason for Study: Chest Pain
EKG- Treatment ONCE
Complete Blood Count/With Diff Urgent
Comprehensive Metabolic Panel Urgent
NT-proBNP Urgent
Troponin I Urgent
03/30/24 00:01
CR Chest - 2 Views Urgent
Reason For Exam: substernal chest pain, shortness of breath
03/30/24 02:32
Acetaminophen [Tylenol] 650 mg PO NOW STA
03/30/24 03:00
Electrocardiogram (*1) Urgent
Reason for Study: Chest Pain
03/30/24 03:08
Troponin I Urgent
Abnormal Lab Results
03/30/24
01:21
WBC 11.9 H 10^3/uL
(4.8-10.8)
MPV 11.2 H fL
(7.4-10.4)
Abs Immat Gran (auto) 0.1 H 10^3/uL
(0-0.05)
Absolute Neuts (auto) 8.8 H 10^3/uL
(1.4-6.5)
Absolute Monos (auto) 0.9 H 10^3/uL
(0.1-0.6)
Lymphocytes % 15.4 L %
(20.5-51.1)
Carbon Dioxide 16 L mmol/L
(22-30)
Glucose 143 H mg/dl
(70-99)
03/30/24 01:21
03/30/24 01:21
Vital Signs
Initial and Last Documented VS:
Initial Vital Signs
Pulse Resp BP Pulse Ox
98 27 147/95 98
03/29/24 23:33 03/29/24 23:33 03/29/24 23:33 03/29/24 23:33
Last Documented Vital Signs
Temp Pulse Resp BP Pulse Ox
97.8 F 97 20 139/85 98
03/29/24 23:38 03/30/24 00:15 03/30/24 00:15 03/30/24 00:00 03/30/24 01:50
<Nancy Del Valle PA-C - Last Filed: 03/30/24 04:46>
MDM/Problems Addressed
Differential Diagnosis Includes:
Differentials include COPD exacerbation, pneumonia, ACS, viral syndrome, musculoskeletal sprain/strain
MDM/Problems Addressed:
63-year-old female with past medical history of chronic pancreatitis, CVA with residual left-sided weakness, COPD, CHF presents emergency department today with concerns of chest pain and shortness of breath. [facility]. EMS
reports that she was sent here because of concerns that she aspirated chocolate pudding. On exam, she is well appearing, afebrile, non-hypoxic, in no acute respiratory distress. Possible differentials include pneumonia, COPD exacerbation, ACS. Will
send off for CXR, CBC, CMP, troponin, BNP.
CXR shows no evidence of pneumothorax or infiltrate. EKG shows no concerning ischemic changes and appears unchanged from prior EKG on March 14, 2024. Repeat troponin undetectable. Repeat EKG unchanged. Patient reports that her shortness of breath
has resolved. She now feels less chest pressure and feels that her pain has lessened and is more in the epigastric pain and feels that this is related to her chronic pancreatitis pain. Patient stable for discharge. Case reviewed with my attending.
Chronic conditions affecting care:
COPD, prior stroke with residual weakness, chronic pancreatitis, seizure disorder, CHF, anxiety, depression
Acute Exacerbation and/or Progression of Chronic Illness:
chronic pancreatitis
<Nancy Del Valle PA-C - Last Filed: 03/30/24 04:46>
*Radiology
Radiology exam reviewed: preliminary read by ED provider (no acute cardiopulmonary abnormality )
*Pulse Oximetry
Patient hypoxic: no
*EKG
Interpreted by ED Provider?: Yes
EKG Intrepretation Date: 03/30/24
Interpretation: normal
Comparison EKG: no changes
Heart Rate: 93
Rate: normal
Rhythm: sinus
Interval: normal interval
QRS Pattern: normal QRS
Ischemia: no ischemia
*Phone Operator Interpretation
Rate: normal
*Critical Care Note
Total Time (30-74mins, 75-104mins- exclusive of procedures): Not Applicable
Data Reviewed
Review of Other/Old Records Reveals: Records and Discharge Summary (reviewed discharge summary from 03/21/24, patient seen for chronic pancreatitis)
Source: patient and records
<Nancy Del Valle PA-C - Last Filed: 03/30/24 04:46>
Patient Management
Escalation/DeEscalation of care consider admission/obs:
Admit not indicated
ED Attending Note
<Nancy Del Valle PA-C - Last Filed: 03/30/24 04:46>
-
Portions of this chart may have been created with voice recognition software.� Occasional wrong word or��sound alike� substitutions may have occurred due to the inherent limitations of voice recognition software.
<Eddi Aly DO - Last Filed: 03/30/24 03:22>
ED Attending Note
Patient seen and examined by attending physician: Yes
I performed the substantive portion of visit, reviewed & personally made and approve the management plan that is documented in note by myself or [place].: Yes
ED Attending Note:
Pleasant 63-year-old female for [facility] presents with chest pain and shortness of breath. Symptoms began around 10 PM. She reports being asymptomatic upon arrival to the emergency department. Patient reports that the chest pain radiates
down the left patient has a history of CVA with residual left-sided weakness. Patient was seen in conjunction with the [facility]. I have reviewed and agree with her history and treatment plan. Amendment physical exam patient awake, alert, oriented x 3
and apparently no acute distress. Patient does exhibit left-sided weakness with muscle strength testing. For set of cardiac enzymes is negative. Will repeat them at the 6-hour joe.
Discharge Plan
Departure
Patient Disposition: Home (Routine Discharge)
Date of Disposition: 03/30/24
Time of Disposition: 04:29
Patient with high blood pressure during this ER visit?: Yes
Condition: Good
Discharge Problem:
Chest pain, Epigastric pain
Instructions: Chest pain, Abdominal Pain, BLOOD PRESSURE
Prescriptions:
No Action
folic acid 1 MG tablet
1 mg PO DAILY
famotidine 40 MG tablet
40 mg PO HS
thiamine HCl (vitamin B1) 100 MG tablet
100 mg PO BID
Creon 36,000-114,000- 180,000 unit Capsule,Delayed Release(Dr/Ec)
2 cap PO MEALS
Creon 36,000-114,000- 180,000 unit Capsule,Delayed Release(Dr/Ec)
1 cap PO QPM
sennosides [senna] 8.6 mg Tablet
17.2 mg PO Q12H
magnesium hydroxide [Milk of Magnesia] 400 mg/5 mL Suspension
2,400 mg PO DAILYPRN PRN (Reason: if no bm after 3 days)
bisacodyl [Dulcolax (bisacodyl)] 10 mg Suppository
10 mg [place] DAILYPRN PRN (Reason: if no bm in 24hrs after MOM)
Fleet Enema 19-7 gram/118 mL Enema
118 ml MA DAILYPRN PRN (Reason: if no bm in 24hrs after bisacodyl)
atorvastatin 40 mg tablet
40 mg PO HS
Benadryl 2 % Gel
1 applic TOPICAL Q6HPRN PRN (Reason: itching/rash)
albuterol sulfate 2.5 mg /3 mL (0.083 %) solution for nebulization
2.5 mg inhalation R TID
ondansetron HCl 4 mg tablet
4 mg PO Q8HPRN PRN (Reason: nausea/vomiting)
alendronate 70 mg tablet
70 mg PO FR
calcium carbonate 600 mg calcium (1,500 mg) Tablet
600 mg PO BID
tamsulosin 0.4 mg Capsule
0.4 mg PO DAILY
amlodipine 10 mg tablet
10 mg PO DAILY
pantoprazole 40 mg tablet,delayed release (DR/EC)
40 mg PO DAILY
ferrous sulfate 325 mg (65 mg iron) Tablet
325 mg PO DAILY
ropinirole 0.5 mg tablet
0.5 mg PO QID
docusate sodium 100 mg Capsule
200 mg PO DAILY
ergocalciferol (vitamin D2) 1,250 mcg (50,000 unit) Capsule
1,250 mcg PO MO
albuterol sulfate 90 mcg/actuation HFA aerosol inhaler
2 puff inhalation R Q4HPRN PRN (Reason: sob/wheezing)
fluticasone propionate 50 mcg/actuation [place],Suspension
2 spray INTRANASAL BID
estradiol [Vagifem] 10 mcg Tablet
10 mcg VAGINAL WESA@2200
tiotropium bromide 2.5 mcg/actuation Mist
2 puff INHALATION R DAILY
Eliquis 5 mg tablet
5 mg PO BID
baclofen 5 mg tablet
5 mg PO TID
polyethylene glycol 3350 17 gram powder in packet
17 g PO BID
levetiracetam 500 mg Tablet
500 mg PO BID Qty: 60 0RF
topiramate [Topamax] 25 mg Tablet
25 mg PO Q48H Qty: 0 0RF
primidone 50 mg Tablet
150 mg PO HS Qty: 20 0RF
oxycodone 5 mg Tablet
5 mg PO Q12 Qty: 14 0RF
loratadine 10 mg Tablet
10 mg PO DAILY
duloxetine [Cymbalta] 20 mg Capsule,Delayed Release(Dr/Ec)
20 mg PO BID
losartan 50 mg tablet
50 mg PO DAILY Qty: 0 0RF
sodium chloride 1 gram Tablet
1 g PO DAILY
acetaminophen 500 mg Tablet
1,000 mg PO Q8HPRN PRN (Reason: mild pain)
guaifenesin 100 mg/5 mL Liquid
200 mg PO Q4HPRN PRN (Reason: cough)
hydrocortisone 1 % Cream
1 applic TOPICAL Q6HPRN PRN (Reason: itching)
Cipro HC 0.2-1 % drops,suspension
4 drp RIGHT EAR BID
losartan 100 mg tablet
100 mg PO DAILY
Icy Hot (menthol) 5 % Adhesive Patch,Medicated
3 patch TOPICAL DAILY
Rx Instructions:
apply to left deltoid, left knee, left thigh
lidocaine 5 % Ointment
1 applic TOPICAL TID
Rx Instructions:
apply to left hip
guaifenesin [Mucinex] 600 mg Tablet Extended Release 12hr
600 mg PO Q12H
Referrals:
Rin Wen DO [Family Provider] -
Kenyatta Mac DO [Primary Care Provider] -
Activity Restrictions/Additional Instructions:
Please return to the emergency department should you experience an acute worsening of your symptoms, return of your symptoms, nausea, vomiting, syncopal episodes, dizziness, lightheadedness, seizure-like activity, difficulty speaking, weakness
one-sided body versus the other, shortness of breath, or any other signs or symptoms concerning to you.
Please call your orthodontic lab technician to schedule a follow up appointment. Please follow up with your county adviser.
Interventions
Interventions:
*Risk Screen - Suicide Last Done: 03/29/24 23:38
*General Assessment Last Done: 03/29/24 23:38
*Neglect/Abuse Screening Last Done: 03/29/24 23:38
ED- Fall Risk Assessment Last Done: 03/29/24 23:45
*ED COVID-19 Vaccine History Last Done: 03/29/24 23:45
ED- Pulmonary Assessment Last Done: 03/29/24 23:45
Discharge Date and Time
Print Language: CITIZEN [place]
[2024-03-30] VITALS: BP 139/85
[2024-03-30 01:35] LABS: % Basophils 0.8 % (0-2); % Eosinophils 1.3 % (0-6); % Immature Granulocytes 0.5 % (0-0.5); % Lymphocytes 15.4 % (20.5-51.1); % Monocytes 7.8 % (1.7-9.3); % Neutrophils 74.2 % (42.2-75.2); Absolute Basophils 0.1 10^3/uL (0-0.2); Absolute Eosinophils 0.2 10^3/uL (0-0.7); Absolute Immature Granulocytes 0.1 10^3/uL (0-0.05); Absolute Lymphocytes 1.8 10^3/uL (1.2-3.4); Absolute Monocytes 0.9 10^3/uL (0.1-0.6); Absolute Neutrophils 8.8 10^3/uL (1.4-6.5); Hematocrit 41.4 % (37.0-47.0); Hemoglobin 14.8 g/dL (12.0-16.0); Mean Corp Hgb Conc. 35.7 g/dL (33.0-37.0); Mean Corpuscular Hgb 30.5 pg (27.0-31.0); Mean Corpuscular Volume 85.2 fL (81.0-99.0); Mean Platelet Volume 11.2 fL (7.4-10.4); Nucleated Red Blood Cells % 0 %; Platelet Count 297 10^3/uL (130-400); Red Blood Cell Count 4.86 10^6/uL (4.20-5.40); Red Cell Dist. Width 13.6 % (11.5-14.5); White Blood Cell Count 11.9 10^3/uL (4.8-10.8)
[2024-03-30 01:51] LABS: ALT (SGPT) 13 U/L (0-35); AST (SGOT) 19 U/L (14-36); Albumin 4.3 g/dl (3.5-5.0); Alkaline Phosphatase 97 U/L (38-126); Blood Urea Nitrogen 16 mg/dl (7-17); Calcium 10.2 mg/dl (8.4-10.2); Carbon Dioxide 16 mmol/L (22-30); Chloride 105 mmol/L (98-107); Glucose 143 mg/dl (70-99); Sodium 135 mmol/L (135-145); Total Bilirubin 0.5 mg/dl (0.2-1.3); Total Protein 6.9 g/dl (6.3-8.2); eGFR > 60.00
[2024-03-30 02:02] LABS: NT-proBNP 444 pg/ml; Troponin I < 0.012 ng/ml
[2024-03-30] MEDS: TYLENOL 650 MG PO (02:58)
[2024-03-30 03:40] LABS: Troponin I < 0.012 ng/ml
== END 2024-03-30 06:09 | disposition home or self-care (01) ==
LOC: EMR 23:27
PROVIDERS: Physician Assistant; EMERGENCY PHYSICIAN Student in an Organized Health Care Education/Training Program; FAMILY PHYSICIAN Hospitalist; PRIMARYCARE PHYSICIAN Family Medicine
DX: R07.89 Other chest pain (principal); R10.13 Epigastric pain; I11.0 Hypertensive heart disease with heart failure; I50.9 Heart failure, unspecified; I25.10 Atherosclerotic heart disease of native coronary artery without angina pectoris; F17.200 Nicotine dependence, unspecified, uncomplicated; K86.1 Other chronic pancreatitis; F41.9 Anxiety disorder, unspecified; F32.A Depression, unspecified; I69.354 Hemiplegia and hemiparesis following cerebral infarction affecting left non-dominant side
CPT/HCPCS: 99285; 71046; 80053; 83880; 84484; 85025; 93005

== ENCOUNTER 2024-04-01 02:08 | Emergency (ER) | payer OTHER, SELFPAY ==
[2024-04-01 02:11] VITALS: BP 135/86; BMI 27.8
[2024-04-01 02:15] VITALS: BP 135/86
[2024-04-01 03:00] VITALS: BP 136/84
[2024-04-01 04:00] VITALS: BP 132/89
--- NOTE | 2024-04-01 04:28 | ED.GENMED ---
History of Present Illness
General
Chief Complaint: Headache
Source: patient, ambulance crew, jail, previous radiology exam and previous hospital records (Multiple previous hospitalizations including twice in February, once mid March.)
Exam Limitations: none
Time Seen by Provider: 04/01/24 04:14
History of Present Illness
History of Present Illness:
This is a 63-year-old woman who presents from a local jail with complaints of generalized headache, ongoing for several days accompanied with nausea, intermittent vomiting. She has extensive past medical history including seizure disorder,
chronic pancreatitis with chronic abdominal pain/narcotic dependent, history of CVA with residual left hemiparesis. Prior history of alcohol abuse.
Multiple hospitalizations here including 2 in February for treatment of change in mental status, lethargy thought to be related to polypharmacy, seizure disorder and then most recently hospitalized March 15 to March 21 for treatment of acute on
chronic pancreatitis associated with constipation.
She was most recently evaluated in this ED just 3 days ago, March 29 with complaints of chest pain and shortness of breath. Unremarkable ED evaluation including unremarkable laboratory studies, unremarkable chest x-ray. According to ED records
she was not complaining of headache nor vomiting at that time however patient disputes this.
She has not had any falls, no fever.
She states since hospitalization mid-March she has been moving her bowels more regularly.
She does have chronic mild left hemiparesis, patient states this is unchanged. She denies new weakness, no palpitations. No recent seizure activity.
Past History
Past History
ED Past Medical History: CAD, Cancer (Breast with lumpectomy), GERD, HTN, Hypercholesterolemia, Psychiatric (Depression, panic disorder, alcohol abuse) and Other (ETOH pancreatitis w/ cyst at tail, headache, dizziness, chronic abdominal
pain/narcotic dependent, Colitis, Ulcers)
ED Past Surgical History: Cholecystectomy, (X 2), Gynecological (Hysterectomy) and Other ( left breast lumpectomy, pancreatic duct stents that have been removed)
Social History
Tobacco: Smoker
Alcohol: Former
Drug: Marijuana (by [facility] on previous visits)
Personal:
Living: jail (with her mother)
Employment: Not employed
Family History
Family History: Other (reviewed and non-contributory)
Phy Exam
Physical Exam
Physical Exam:
GENERAL: 63-year-old woman appears somewhat older than stated age, she is bright and alert, pleasant, easily communicative and appears in no acute distress.
EYE: pupils equal and reactive. anicteric
NECK: Supple, nontender, no meningismus, no significant adenopathy.
ENT: oral mucosa is moist. No rhinorrhea.
CARDIAC: Regular rate and rhythm. no murmur.
LUNGS: Clear breath sounds bilaterally, no acute respiratory distress, no wheezes/rales/rhonchi
ABDOMEN: Soft, nondistended, mild tenderness epigastric region, no r/g, no cvat. normoactive BS.
NEUROLOGICAL: Alert and oriented x3, dense left hemiparesis�chronic and unchanged.
SKIN: Warm and dry, normal color, skin intact. No rash.
MUSCULOSKELETAL: No C/C/E. peripheral pulses are full and equal b/l. No palpable tenderness.
PSYCH: Normal and appropriate interaction.
Course
Orders/Labs/Results
Orders:
Orders
04/01/24 04:25
Electrocardiogram (*1) Urgent
Reason for Study: Abdominal Pain
CT Head W/o Iv Contrast Urgent
Comment:
Reason For Exam: severe generalized headache x few days
EKG- Treatment ONCE
04/01/24 04:41
Complete Blood Count/With Diff Urgent
Comprehensive Metabolic Panel Urgent
Lipase Urgent
04/01/24 05:35
Acetaminophen [Tylenol] 650 mg PO NOW STA
Oxycodone [Roxicodone] 5 mg PO NOW STA
04/01/24 05:52
Acetaminophen [Tylenol Oral Solution] 650 mg PO NOW STA
Abnormal Lab Results
04/01/24
04:41
MPV 10.9 H fL
(7.4-10.4)
Abs Immat Gran (auto) 0.1 H 10^3/uL
(0-0.05)
Absolute Neuts (auto) 7.1 H 10^3/uL
(1.4-6.5)
Absolute Monos (auto) 0.9 H 10^3/uL
(0.1-0.6)
Lymphocytes % 17.5 L %
(20.5-51.1)
Carbon Dioxide 19 L mmol/L
(22-30)
Glucose 145 H mg/dl
(70-99)
04/01/24 04:41
04/01/24 04:41
Vital Signs
Initial and Last Documented VS:
Initial Vital Signs
Temp Pulse Resp BP Pulse Ox
97.8 F 94 18 135/86 94
04/01/24 02:11 04/01/24 02:11 04/01/24 02:11 04/01/24 02:11 04/01/24 02:11
Last Documented Vital Signs
Temp Pulse Resp BP Pulse Ox
97.8 F 94 18 132/89 95
04/01/24 02:11 04/01/24 02:11 04/01/24 02:11 04/01/24 04:00 04/01/24 04:15
MDM/Problems Addressed
Differential Diagnosis Includes:
Concern for migraine headache, tension headache, hemorrhagic stroke.
She also notes epigastric discomfort and has known history of chronic abdominal pain related to chronic pancreatitis. Overall appears comfortable and I suspect this is her baseline but will check labs, assess for electrolyte abnormality, acute
kidney injury, LFTs/lipase abnormality.
Will check EKG assess for potential ACS and will check CT of the head.
*Radiology
Radiology exam reviewed: radiology read reviewed
*Pulse Oximetry
Patient hypoxic: no
*Customer Operations Manager Interpretation
Rate: normal
Interpretation: normal
Rhythm: sinus
*Critical Care Note
Total Time (30-74mins, 75-104mins- exclusive of procedures): Not Applicable
Update Note
Update Note:
04/01/2024 0555 AM
Patient continues to appear well. Vital signs within normal limits.
No vomiting since arrival to the ED.
CT of the head is unremarkable. Unchanged from previous.
Labs are all unremarkable. Normal lipase at 32. Previous exacerbations of pancreatitis have been accompanied with elevated lipase.
Will give a dose of Tylenol as well as her usual dose of oxycodone for headache and chronic abdominal pain.
I did consider antiemetics such as Compazine as well as Reglan but reported potential adverse interactions with ropinirole
Will plan to [facility] back to jail for continued care.
ED Attending Note
-
Portions of this chart may have been created with voice recognition software.� Occasional wrong word or��sound alike� substitutions may have occurred due to the inherent limitations of voice recognition software.
Discharge Plan
Departure
Patient Disposition: Senior Living/SNF
Date of Disposition: 04/01/24
Time of Disposition: 05:53
Patient with high blood pressure during this ER visit?: No
Discharge Problem:
Headache, Abdominal pain, chronic, epigastric
Instructions: Migraines (DC), Chronic pain
Prescriptions:
No Action
folic acid 1 MG tablet
1 mg PO DAILY
famotidine 40 MG tablet
40 mg PO HS
thiamine HCl (vitamin B1) 100 MG tablet
100 mg PO BID
Creon 36,000-114,000- 180,000 unit Capsule,Delayed Release(Dr/Ec)
2 cap PO MEALS
Creon 36,000-114,000- 180,000 unit Capsule,Delayed Release(Dr/Ec)
1 cap PO QPM
sennosides [senna] 8.6 mg Tablet
17.2 mg PO Q12H
magnesium hydroxide [Milk of Magnesia] 400 mg/5 mL Suspension
2,400 mg PO DAILYPRN PRN (Reason: if no bm after 3 days)
bisacodyl [Dulcolax (bisacodyl)] 10 mg Suppository
10 mg [place] DAILYPRN PRN (Reason: if no bm in 24hrs after MOM)
Fleet Enema 19-7 gram/118 mL Enema
118 ml [place] DAILYPRN PRN (Reason: if no bm in 24hrs after bisacodyl)
atorvastatin 40 mg tablet
40 mg PO HS
Benadryl 2 % Gel
1 applic TOPICAL Q6HPRN PRN (Reason: itching/rash)
albuterol sulfate 2.5 mg /3 mL (0.083 %) solution for nebulization
2.5 mg inhalation R TID
ondansetron HCl 4 mg tablet
4 mg PO Q8HPRN PRN (Reason: nausea/vomiting)
alendronate 70 mg tablet
70 mg PO FR
calcium carbonate 600 mg calcium (1,500 mg) Tablet
600 mg PO BID
tamsulosin 0.4 mg Capsule
0.4 mg PO DAILY
amlodipine 10 mg tablet
10 mg PO DAILY
pantoprazole 40 mg tablet,delayed release (DR/EC)
40 mg PO DAILY
ferrous sulfate 325 mg (65 mg iron) Tablet
325 mg PO DAILY
ropinirole 0.5 mg tablet
0.5 mg PO QID
docusate sodium 100 mg Capsule
200 mg PO DAILY
ergocalciferol (vitamin D2) 1,250 mcg (50,000 unit) Capsule
1,250 mcg PO MO
albuterol sulfate 90 mcg/actuation HFA aerosol inhaler
2 puff inhalation R Q4HPRN PRN (Reason: sob/wheezing)
fluticasone propionate 50 mcg/actuation [place],Suspension
2 spray INTRANASAL BID
estradiol [Vagifem] 10 mcg Tablet
10 mcg VAGINAL WESA@2200
tiotropium bromide 2.5 mcg/actuation Mist
2 puff INHALATION R DAILY
Eliquis 5 mg tablet
5 mg PO BID
baclofen 5 mg tablet
5 mg PO TID
polyethylene glycol 3350 17 gram powder in packet
17 g PO BID
levetiracetam 500 mg Tablet
500 mg PO BID Qty: 60 0RF
topiramate [Topamax] 25 mg Tablet
25 mg PO Q48H Qty: 0 0RF
primidone 50 mg Tablet
150 mg PO HS Qty: 20 0RF
oxycodone 5 mg Tablet
5 mg PO Q12 Qty: 14 0RF
loratadine 10 mg Tablet
10 mg PO DAILY
duloxetine [Cymbalta] 20 mg Capsule,Delayed Release(Dr/Ec)
20 mg PO BID
losartan 50 mg tablet
50 mg PO DAILY Qty: 0 0RF
sodium chloride 1 gram Tablet
1 g PO DAILY
acetaminophen 500 mg Tablet
1,000 mg PO Q8HPRN PRN (Reason: mild pain)
guaifenesin 100 mg/5 mL Liquid
200 mg PO Q4HPRN PRN (Reason: cough)
hydrocortisone 1 % Cream
1 applic TOPICAL Q6HPRN PRN (Reason: itching)
Cipro HC 0.2-1 % drops,suspension
4 drp RIGHT EAR BID
losartan 100 mg tablet
100 mg PO DAILY
Icy Hot (menthol) 5 % Adhesive Patch,Medicated
3 patch TOPICAL DAILY
Rx Instructions:
apply to left deltoid, left knee, left thigh
lidocaine 5 % Ointment
1 applic TOPICAL TID
Rx Instructions:
apply to left hip
guaifenesin [Mucinex] 600 mg Tablet Extended Release 12hr
600 mg PO Q12H
Referrals:
Kenyatta Mac DO [Family Provider] - Call in 1-3 days for appt
Interventions
Interventions:
*Risk Screen - Suicide Last Done: 04/01/24 02:11
*General Assessment Last Done: 04/01/24 02:11
*Neglect/Abuse Screening Last Done: 04/01/24 02:11
*ED COVID-19 Vaccine History Last Done: 04/01/24 02:20
ED- Neurological Assessment Last Done: 04/01/24 02:21
Discharge Date and Time
Print Language: [id number]
[2024-04-01 04:52] LABS: % Basophils 1.1 % (0-2); % Eosinophils 1.4 % (0-6); % Immature Granulocytes 0.5 % (0-0.5); % Lymphocytes 17.5 % (20.5-51.1); % Monocytes 9.3 % (1.7-9.3); % Neutrophils 70.2 % (42.2-75.2); Absolute Basophils 0.1 10^3/uL (0-0.2); Absolute Eosinophils 0.1 10^3/uL (0-0.7); Absolute Immature Granulocytes 0.1 10^3/uL (0-0.05); Absolute Lymphocytes 1.8 10^3/uL (1.2-3.4); Absolute Monocytes 0.9 10^3/uL (0.1-0.6); Absolute Neutrophils 7.1 10^3/uL (1.4-6.5); Hematocrit 42.7 % (37.0-47.0); Hemoglobin 15.1 g/dL (12.0-16.0); Mean Corp Hgb Conc. 35.4 g/dL (33.0-37.0); Mean Corpuscular Hgb 30.7 pg (27.0-31.0); Mean Corpuscular Volume 86.8 fL (81.0-99.0); Mean Platelet Volume 10.9 fL (7.4-10.4); Nucleated Red Blood Cells % 0 %; Platelet Count 323 10^3/uL (130-400); Red Blood Cell Count 4.92 10^6/uL (4.20-5.40); Red Cell Dist. Width 13.8 % (11.5-14.5); White Blood Cell Count 10.1 10^3/uL (4.8-10.8)
[2024-04-01 05:00] VITALS: BP 146/82
[2024-04-01 05:05] LABS: ALT (SGPT) 16 U/L (0-35); AST (SGOT) 20 U/L (14-36); Albumin 4.3 g/dl (3.5-5.0); Alkaline Phosphatase 90 U/L (38-126); Blood Urea Nitrogen 17 mg/dl (7-17); Calcium 9.9 mg/dl (8.4-10.2); Carbon Dioxide 19 mmol/L (22-30); Chloride 103 mmol/L (98-107); Estimated Creatinine Clearance 90 ml/min; Glucose 145 mg/dl (70-99); Lipase 32 U/L (23-300); Potassium 3.8 mmol/L (3.5-5.1); Sodium 135 mmol/L (135-145); Total Bilirubin 0.5 mg/dl (0.2-1.3); Total Protein 6.8 g/dl (6.3-8.2); eGFR > 60.00
[2024-04-01] MEDS: ROXICODONE 5 MG PO (05:45)
[2024-04-01] MEDS: TYLENOL ORAL SOLUTION 650 MG PO (05:58)
[2024-04-01 06:00] VITALS: BP 144/90
== END 2024-04-01 07:22 ==
LOC: EMR 02:08
PROVIDERS: EMERGENCY PHYSICIAN Emergency Medicine; FAMILY PHYSICIAN Family Medicine
DX: R51.9 Headache, unspecified (principal); G40.909 Epilepsy, unspecified, not intractable, without status epilepticus; I25.10 Atherosclerotic heart disease of native coronary artery without angina pectoris; I10 Essential (primary) hypertension; F32.A Depression, unspecified; E78.00 Pure hypercholesterolemia, unspecified; K21.9 Gastro-esophageal reflux disease without esophagitis; K86.1 Other chronic pancreatitis; Z85.3 Personal history of malignant neoplasm of breast; Z87.19 Personal history of other diseases of the digestive system; Z90.49 Acquired absence of other specified parts of digestive tract; Z90.710 Acquired absence of both cervix and uterus; F17.200 Nicotine dependence, unspecified, uncomplicated
CPT/HCPCS: 99284; 70450; 80053; 83690; 85025; 93005

== ENCOUNTER 2024-04-10 21:56 | Emergency (ER) | payer OTHER, SELFPAY ==
[2024-04-10 22:05] VITALS: BP 143/88
[2024-04-10 22:06] VITALS: BP 143/88
[2024-04-10 22:30] VITALS: BP 145/91
--- NOTE | 2024-04-10 22:32 | ED.GENMED ---
History of Present Illness
<Rosamaria Hawley MD, Resident - Last Filed: 04/10/24 23:55>
General
Chief Complaint: Chest Problem
Source: patient
Exam Limitations: none
Time Seen by Provider: 04/10/24 21:59
Nursing documentation reviewed up to this point in time: agreed with
Travel History
Have you traveled to any high risk areas for coronavirus over the past 14 days?: No
Have you had any contact with someone who has COVID-19?: No
Do you have any symptoms of coronavirus? Fever > 100 degrees, chills, cough, shortness of breath, sore throat, loss of taste or smell, muscle aches, or headache?: No
History of Present Illness
History of Present Illness:
63-year-old female with a complex past medical history significant for CVA, splenic infarct, diverticulitis, pancreatitis, alcohol use disorder in the past, GI ulcers presents to the hospital with sudden onset epigastric pain. Her pain started in
the morning today initially was throbbing and is associated with some nausea. Hence patient took Zofran medication that helped her with her nausea but her pain migrated into her chest causing pressure-like pain, 8/10 in intensity, as if someone was
sitting on her chest beginning 6 PM, this pain is radiating into her right arm as well as right upper jaw. Her chest pain is also associated with nausea, lightheadedness, shortness of breath since 6 PM. She reports to have PND for the last 1 week
but denies having orthopnea or SOB on exertion
Currently patient is having a headache of about 8/10 in intensity, and she states to have headache since morning.
Patient was seen and evaluated at [facility] and observed overnight for similar complaint.
Patient denies having any diaphoresis, loss of consciousness, recent seizure activity, fever, chills, sick contacts.
If applicable-neuro sx onset
Onset of symptoms known: No
Time pt last seen normal is known: No
Past History
<Rosamaria Hawley MD, Resident - Last Filed: 04/10/24 23:55>
Past History
ED Past Medical History: CAD, Cancer (Breast with lumpectomy), GERD, HTN, Hypercholesterolemia, Psychiatric (Depression, panic disorder, alcohol abuse) and Other (ETOH pancreatitis w/ cyst at tail, headache, dizziness, chronic abdominal
pain/narcotic dependent, Colitis, Ulcers)
ED Past Surgical History: Cholecystectomy, (X 2), Gynecological (Hysterectomy) and Other ( left breast lumpectomy, pancreatic duct stents that have been removed)
Social History
Tobacco: Smoker
Alcohol: Former
Drug: Marijuana (by [facility] on previous visits)
Personal:
Living: skilled nursing (with her mother)
Employment: Not employed
Family History
Family History: Other (reviewed and non-contributory)
Review of Systems
<Rosamaria Hawley MD, Resident - Last Filed: 04/10/24 23:55>
Review of Systems
Allergies reviewed?: Yes
Constitutional: Reports no symptoms
EENT: Reports no symptoms
Respiratory: Reports trouble breathing
Cardiac: Reports chest pain; Denies diaphoresis, palpitations or syncope
ABD/GI: Reports no symptoms
: Reports no symptoms
Musculoskeletal: Reports no symptoms
Skin: Reports no symptoms
Neurological: Reports dizzy and headache; Denies weakness, numbness or other
Endocrine: Reports no symptoms
Hematologic/Lymphatic: Reports no symptoms
Psychiatric: Reports no symptoms
Phy Exam
<Rosamaria Hawley MD, Resident - Last Filed: 04/10/24 23:55>
General Physical Exam
General Presentation: no apparent distress
General age: appears older than age
General Skin: warm
General Mental: alert
General Hydration: appears well hydrated
Eye Exam
Eye Exam: PERRL and EOMI
Cardiovascular Exam
Cardiovascular Exam: regular rate/rhythm, no edema, no gallop, no murmur and normal peripheral pulses
Heart Sounds: normal
MIKE Score
Is patient's age greater than or equal to 65 years: No
Does patient have 3 or more CAD risk factors?: Yes
Does patient have known CAD: Yes
Has patient used ASA in past seven days?: No
Has patient had severe angina in past 24 hrs?: No
Are there ST changes greater 0.05mm?: No
Pulmonary Exam
Pulmonary Exam: lungs clear, no respiratory distress, no rales, no crackles and no rhonchi
Gastrointestinal Exam
Gastrointestinal Exam: normal bowel sounds, non tender, soft, no pulsatile mass and non distended
Neurological Exam
Neurological Exam: alert, no motor deficits, normal reflexs, no sensory deficits and speech normal
Musculoskeletal Exam
Musculoskeletal Exam: no edema
Course
<Rosamaria Hawley MD, Resident - Last Filed: 04/10/24 23:55>
Orders/Labs/Results
Orders:
Orders
04/10/24 22:16
EKG [Electrocardiogram (*1)] Urgent
Reason for Study: Abdominal Pain
EKG- Treatment ONCE
04/10/24 23:09
Complete Blood Count/With Diff Urgent
Troponin I Urgent
04/10/24 23:19
Acetaminophen [Tylenol] 650 mg PO NOW STA
04/10/24 23:28
D-Dimer Stat
04/10/24 23:48
Ondansetron HCl [Zofran] 4 mg PO NOW STA
04/11/24 00:31
Comprehensive Metabolic Panel Urgent
Lipase Urgent
Abnormal Lab Results
04/11/24
00:01
Hct 36.8 L %
(37.0-47.0)
MPV 11.3 H fL
(7.4-10.4)
Absolute Neuts (auto) 7.0 H 10^3/uL
(1.4-6.5)
Absolute Monos (auto) 0.9 H 10^3/uL
(0.1-0.6)
Lymphocytes % 18.6 L %
(20.5-51.1)
04/11/24 00:01
Vital Signs
Initial and Last Documented VS:
Initial Vital Signs
Pulse Resp
119 31
04/10/24 22:04 04/10/24 22:04
Last Documented Vital Signs
Temp Pulse Resp BP Pulse Ox
98.0 F 127 25 130/81 97
04/10/24 22:06 04/11/24 00:15 04/11/24 00:15 04/11/24 00:00 04/11/24 00:15
<Aaron Pierre, - Last Filed: 04/11/24 00:55>
Orders/Labs/Results
Orders:
Orders
04/10/24 22:16
EKG [Electrocardiogram (*1)] Urgent
Reason for Study: Abdominal Pain
EKG- Treatment ONCE
04/10/24 23:09
Complete Blood Count/With Diff Urgent
Troponin I Urgent
04/10/24 23:19
Acetaminophen [Tylenol] 650 mg PO NOW STA
04/10/24 23:28
D-Dimer Stat
04/10/24 23:48
Ondansetron HCl [Zofran] 4 mg PO NOW STA
04/11/24 00:31
Comprehensive Metabolic Panel Urgent
Lipase Urgent
Abnormal Lab Results
04/11/24
00:01
Hct 36.8 L %
(37.0-47.0)
MPV 11.3 H fL
(7.4-10.4)
Absolute Neuts (auto) 7.0 H 10^3/uL
(1.4-6.5)
Absolute Monos (auto) 0.9 H 10^3/uL
(0.1-0.6)
Lymphocytes % 18.6 L %
(20.5-51.1)
04/11/24 00:01
Vital Signs
Initial and Last Documented VS:
Initial Vital Signs
Pulse Resp
119 31
04/10/24 22:04 04/10/24 22:04
Last Documented Vital Signs
Temp Pulse Resp BP Pulse Ox
98.0 F 127 25 130/81 97
04/10/24 22:06 04/11/24 00:15 04/11/24 00:15 04/11/24 00:00 04/11/24 00:15
<Rosamaria Hawley MD, Resident - Last Filed: 04/10/24 23:55>
MDM/Problems Addressed
Differential Diagnosis Includes:
Acute CAD, gastritis, PE, anxiety, panic disorder, pancreatitis
<Rosamaria Hawley MD, Resident - Last Filed: 04/10/24 23:55>
*Critical Care Note
Total Time (30-74mins, 75-104mins- exclusive of procedures): Not Applicable
ED Attending Note
<Rosamaria Hawley MD, Resident - Last Filed: 04/10/24 23:55>
-
Portions of this chart may have been created with voice recognition software.� Occasional wrong word or��sound alike� substitutions may have occurred due to the inherent limitations of voice recognition software.
<Aaron Pierre DO - Last Filed: 04/11/24 00:55>
ED Attending Note
Patient seen and examined by attending physician: Yes
I performed the substantive portion of visit, reviewed & personally made and approve the management plan that is documented in note by myself or [place].: Yes
I performed a history and physical exam of patient and discussed management with resident, I reviewed resident's note and agree with documented findings and plan of care.: Yes
ED Attending Note:
I evaluated the patient at bedside. CBC unremarkable, D-dimer reassuring at less than 0.27, initial troponin 0.023.
EKG sinus 108, left axis deviation, inferior Q waves, poor R wave progression�this is similar in appearance to 04/01/2024
I reviewed records, the patient was seen here 04/01/2024 with epigastric discomfort, at that time she had an unremarkable ED workup with troponin of less than 0.012
Discharge Plan
Departure
Prescriptions:
No Action
folic acid 1 MG tablet
1 mg PO DAILY
thiamine HCl (vitamin B1) 100 MG tablet
100 mg PO BID
Creon 36,000-114,000- 180,000 unit Capsule,Delayed Release(Dr/Ec)
2 cap PO MEALS
Creon 36,000-114,000- 180,000 unit Capsule,Delayed Release(Dr/Ec)
1 cap PO QPM
sennosides [senna] 8.6 mg Tablet
17.2 mg PO Q12H
magnesium hydroxide [Milk of Magnesia] 400 mg/5 mL Suspension
2,400 mg PO DAILYPRN PRN (Reason: if no bm after 3 days)
bisacodyl [Dulcolax (bisacodyl)] 10 mg Suppository
10 mg UT DAILYPRN PRN (Reason: if no bm in 24hrs after MOM)
Fleet Enema 19-7 gram/118 mL Enema
118 ml UT DAILYPRN PRN (Reason: if no bm in 24hrs after bisacodyl)
atorvastatin 40 mg tablet
40 mg PO HS
Benadryl 2 % Gel
1 applic TOPICAL Q6HPRN PRN (Reason: itching/rash)
albuterol sulfate 2.5 mg /3 mL (0.083 %) solution for nebulization
2.5 mg inhalation R TID
ondansetron HCl 4 mg tablet
4 mg PO Q8HPRN PRN (Reason: nausea/vomiting)
alendronate 70 mg tablet
70 mg PO FR
calcium carbonate 600 mg calcium (1,500 mg) Tablet
600 mg PO BID
tamsulosin 0.4 mg Capsule
0.4 mg PO DAILY
amlodipine 10 mg tablet
10 mg PO DAILY
ferrous sulfate 325 mg (65 mg iron) Tablet
325 mg PO DAILY
ropinirole 0.5 mg tablet
0.5 mg PO QID
docusate sodium 100 mg Capsule
200 mg PO DAILY
albuterol sulfate 90 mcg/actuation HFA aerosol inhaler
2 puff inhalation R Q4HPRN PRN (Reason: sob/wheezing)
fluticasone propionate 50 mcg/actuation [place],Suspension
2 spray INTRANASAL BID
tiotropium bromide 2.5 mcg/actuation Mist
2 puff INHALATION R DAILY
Eliquis 5 mg tablet
5 mg PO BID
baclofen 5 mg tablet
5 mg PO TID
polyethylene glycol 3350 17 gram powder in packet
17 g PO BID
levetiracetam 500 mg Tablet
500 mg PO BID Qty: 60 0RF
topiramate [Topamax] 25 mg Tablet
25 mg PO Q48H Qty: 0 0RF
primidone 50 mg Tablet
150 mg PO HS Qty: 20 0RF
loratadine 10 mg Tablet
10 mg PO DAILY
duloxetine [Cymbalta] 20 mg Capsule,Delayed Release(Dr/Ec)
20 mg PO BID
losartan 50 mg tablet
50 mg PO DAILY Qty: 0 0RF
sodium chloride 1 gram Tablet
1 g PO DAILY
acetaminophen 500 mg Tablet
1,000 mg PO Q8HPRN PRN (Reason: mild pain)
guaifenesin 100 mg/5 mL Liquid
200 mg PO Q4HPRN PRN (Reason: cough)
hydrocortisone 1 % Cream
1 applic TOPICAL Q6HPRN PRN (Reason: itching)
losartan 100 mg tablet
100 mg PO DAILY
Icy Hot (menthol) 5 % Adhesive Patch,Medicated
3 patch TOPICAL DAILY
Rx Instructions:
apply to left deltoid, left knee, left thigh
lidocaine 5 % Ointment
1 applic TOPICAL TID
Rx Instructions:
apply to left hip
guaifenesin [Mucinex] 600 mg Tablet Extended Release 12hr
600 mg PO Q12H
famotidine 40 mg Tablet
40 mg PO HS
cholecalciferol (vitamin D3) 125 mcg (5,000 unit) Tablet
125 mcg PO DAILY
oxycodone 5 mg tablet
5 mg PO Q8
Referrals:
Kenyatta Mac DO [Family Provider] -
Interventions
Interventions:
*Risk Screen - Suicide Last Done: 04/10/24 22:06
*General Assessment Last Done: 04/10/24 22:06
*Neglect/Abuse Screening Last Done: 04/10/24 22:06
ED- Fall Risk Assessment Last Done: 04/10/24 22:21
*ED COVID-19 Vaccine History Last Done: 04/10/24 22:21
ED- Cardiac Assessment Last Done: 04/10/24 22:21
ED- Pulmonary Assessment Last Done: 04/10/24 22:21
Discharge Date and Time
Print Language: MALAY
[2024-04-10 23:00] VITALS: BP 145/91
[2024-04-10 23:30] VITALS: BP 143/84
[2024-04-11] VITALS: BP 130/81
[2024-04-11 00:12] LABS: % Basophils 0.8 % (0-2); % Eosinophils 0.9 % (0-6); % Immature Granulocytes 0.3 % (0-0.5); % Lymphocytes 18.6 % (20.5-51.1); % Monocytes 8.8 % (1.7-9.3); % Neutrophils 70.6 % (42.2-75.2); Absolute Basophils 0.1 10^3/uL (0-0.2); Absolute Eosinophils 0.1 10^3/uL (0-0.7); Absolute Lymphocytes 1.8 10^3/uL (1.2-3.4); Absolute Monocytes 0.9 10^3/uL (0.1-0.6); Hematocrit 36.8 % (37.0-47.0); Hemoglobin 13.3 g/dL (12.0-16.0); Mean Corp Hgb Conc. 36.1 g/dL (33.0-37.0); Mean Corpuscular Hgb 30.7 pg (27.0-31.0); Mean Platelet Volume 11.3 fL (7.4-10.4); Nucleated Red Blood Cells % 0 %; Platelet Count 266 10^3/uL (130-400); Red Blood Cell Count 4.33 10^6/uL (4.20-5.40); Red Cell Dist. Width 13.9 % (11.5-14.5); White Blood Cell Count 9.9 10^3/uL (4.8-10.8)
[2024-04-11] MEDS: TYLENOL 650 MG PO (00:12)
[2024-04-11] MEDS: ZOFRAN 4 MG PO (00:12)
[2024-04-11 00:30] VITALS: BP 129/91
[2024-04-11 00:32] LABS: D-Dimer < 0.27 ug/mlFEU (0.00-0.50)
[2024-04-11 00:41] LABS: Troponin I 0.023 ng/ml
[2024-04-11 01:00] VITALS: BP 133/82
[2024-04-11 01:24] LABS: ALT (SGPT) 12 U/L (0-35); AST (SGOT) 20 U/L (14-36); Alkaline Phosphatase 68 U/L (38-126); Blood Urea Nitrogen 10 mg/dl (7-17); Calcium 9.8 mg/dl (8.4-10.2); Carbon Dioxide 22 mmol/L (22-30); Chloride 101 mmol/L (98-107); Glucose 147 mg/dl (70-99); Lipase 19 U/L (23-300); Potassium 3.5 mmol/L (3.5-5.1); Sodium 133 mmol/L (135-145); Total Bilirubin 0.6 mg/dl (0.2-1.3); Total Protein 6.4 g/dl (6.3-8.2); eGFR > 60.00
[2024-04-11 01:30] VITALS: BP 108/75
--- NOTE | 2024-04-11 02:10 | ED.ADDNOTE ---
ED Addendum
ED Addendum
ED Addendum Note:
Initial trop 0.023
Will repeat
CXR unchanged
HR 92 on re-eval at 0210
Some ongoing pain persists, no improvement w/ NTG earlier
L side weakness on exam
I reviewed records from [facility] when she stayed overnight 04/03-04/04/2024: She is on eliquis for splenic blood clot, chronic opiates; 'trop mildly elevated but downtrending'; CT a/p constipation w/ no pancreatitis; CTA neg PE; reported
she appeared comfortable but c/o 10/10 pain and had requested Dilaudid/Morphine; hs-Zachary 18 (0-19)
Will not give narcotics here; appears fairly comfortable; NTG led to [facility] earlier; she was given Tylenol
[2024-04-11 03:08] VITALS: BP 151/91
[2024-04-11 04:11] LABS: Troponin I 0.016 ng/ml
== END 2024-04-11 05:46 | disposition home or self-care (01) ==
LOC: EMR 21:56
PROVIDERS: Student in an Organized Health Care Education/Training Program; EMERGENCY PHYSICIAN Emergency Medicine; FAMILY PHYSICIAN Family Medicine
DX: R07.89 Other chest pain (principal); R10.13 Epigastric pain; E78.00 Pure hypercholesterolemia, unspecified; I10 Essential (primary) hypertension; K21.9 Gastro-esophageal reflux disease without esophagitis; F17.200 Nicotine dependence, unspecified, uncomplicated; I25.10 Atherosclerotic heart disease of native coronary artery without angina pectoris; Z86.73 Personal history of transient ischemic attack (TIA), and cerebral infarction without residual deficits; Z85.3 Personal history of malignant neoplasm of breast; Z90.49 Acquired absence of other specified parts of digestive tract; Z87.19 Personal history of other diseases of the digestive system; Z90.710 Acquired absence of both cervix and uterus
CPT/HCPCS: 99285; 71046; 80053; 83690; 84484; 85025; 85379; 93005